=== PATIENT | female | born 1975 | race Caucasian/White ===

== ENCOUNTER 2020-08-02 11:22 | Outpatient (REF) | payer OTHER, SELFPAY | END 2020-08-02 11:23 | disposition home or self-care (01) | LOC: HO.LAB 11:22 | PROVIDERS: Visit Provider Internal Medicine | DX: Z20.828 Contact with and (suspected) exposure to other viral communicable diseases (principal) | CPT/HCPCS: C9803; U0003 ==

== ENCOUNTER → 2021-05-06 11:12 | Outpatient (BNVA) | payer OTHER, SELFPAY | PROVIDERS: PCP Internal Medicine | CPT/HCPCS: 99212 ==

== ENCOUNTER → 2022-12-08 11:36 | Outpatient (BNVA) | payer OTHER, SELFPAY | PROVIDERS: PCP Internal Medicine; Visit Provider Nurse Practitioner Family | DX: N31.9 Neuromuscular dysfunction of bladder, unspecified (principal) | CPT/HCPCS: 99202 ==

== ENCOUNTER 2023-12-10 11:32 | Outpatient (AMB) | payer OTHER, SELFPAY ==
--- NOTE | 2023-12-10 11:39 | A.OFFVIS_ITS ---
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 Required: No Accompanied by: Self / Same As Patient Allergies ciprofloxacin [Cipro] Allergy (Unknown, Verified 12/10/23 12:10) hives penicillin V Allergy (Unknown, Verified 12/10/23 12:10) hives Medication List - Last Reconciled 12/10/23 by RADHA Tomas- amitriptyline 25 mg PO BEDTIME baclofen 20 mg PO TID cholecalciferol (vitamin D3) (Vitamin D3) 50 mcg PO DAILY dalfampridine ER 0 mg PO empagliflozin (Jardiance) 10 mg PO DAILY estradiol 0.01%(0.1mg/gram) vaginally 3 times a week; pea sized amount to urethra 3 times a week 30 days ferrous sulfate (FeroSul) 0 mg PO gabapentin 600 mg PO TID medroxyprogesterone 5 mg PO DAILY metformin 500 mg PO BID metoprolol succinate ER 25 mg PO DAILY nitrofurantoin macrocrystal 100 mg PO DAILY 90 days sennosides-docusate sodium 8.6-50 mg (Stimulant Laxative Plus) 0 tabs PO teriflunomide (Aubagio) 14 mg PO DAILY tramadol 50 mg PO TID PRN HPI HPI Comments History of Present Illness Details Poonam is a pleasant 48-year-old female patient of Dr. Guerrero. She presents to the office today for follow-up of her neurogenic bladder. In discussion with the patient today she reports to be doing and feeling well. She reports since her last office visit here approximately 1 year ago. She has experienced 3-4 urinary tract infections. She discusses feeling this is related to decrease in Macrobid asked she had previously been on 100 mg daily in this was changed to 50 mg daily. She reports having followed up with her neurologist and PCP. She reports her urinary tract infections symptoms typically are experienced with increase in bilateral leg weakness.Patient reports since the age of [age] years old she has been straight cathing due to her neurogenic bladder. She reports straight cathing approximately 6 to 8 times per day. When asked she reports noncompliance with Estrace cream as she was unsure how to use this. This was reviewed and discussed. Discussed calling office with UTI like symptoms so we can further monitor how many she is having to further assess potential for increase in prophylactic measures of recurrent urinary tract infections. She currently denies any bothersome urinary issues or concerns. She reports her last UTI was approximately 3 months ago. Unable to obtain urine for urinalysis PVR 0 mL. She discusses her recent clearance from Cardiology to undergo colonoscopy. She also discusses recently celebrating her 48th birthday with her family and having COVID 4 days later. When asked she reports to be drinking adequate amount of fluid daily. She currently receives her CIC supplies through [facility] [facility]. When asked she denies flank pain, hematuria, foul- smelling urine, fever, and or chills. ON LICENSE OF [facility] Medical History Neurogenic bladder Surgical History Hx of section Family History Father Cancer of unknown origin Mother Esophagus cancer Social History Alcohol intake: never Patient Tobacco Use Status: Never used Tobacco Review of Systems Const Reports as per HPI Eyes Reports no additional complaints ENT Reports no additional complaints Card Reports as per HPI Resp Reports no additional complaints GI Details: Patient reports she follows with GI regarding constipation is currently on Miralax and is due for colonscopy. Reports constipation Reports as per HPI Musc Reports as per HPI Neuro Reports as per HPI Psych Reports no additional complaints Endo Reports no additional complaints Travon/Lymph Reports no additional complaints Aller/Immun Reports no additional complaints Physical Exam Const General: cooperative, healthy appearing, comfortable, no acute distress, well developed, alert and awake Orientation/consciousness: patient oriented x3 Limitations: ambulation with walker HEENT Head: Yes normal to inspection, Yes normocephalic and Yes atraumatic Ears: hearing grossly normal bilaterally Eyes General: appearance normal, both eyes and all related structures Neck Neck: Yes normal visual inspection and Yes trachea midline Chest Chest palpation & inspection: normal inspection of the chest Resp Effort & Inspection: normal respiratory effort and able to speak in complete sentences Cardio Rate: regular rate GI Inspection: Yes normal to inspection General: Yes no CVA tenderness Back/Spine/Pelvis Back: no CVA tenderness Skin General skin exam: no rashes or lesions noted Neuro General: patient oriented x3 Extrem General: Yes normal to inspection Psych Appearance: grossly normal and well kempt Mental Status: mental status grossly normal Speech and movement: Normal speech and movement present and Clear speech present Affect: normal affect Attitude: cooperative Thought process: Normal thought process present Thought content: Normal thought content present Insight: Good insight present (Psych) Judgement: Good judgement present (Psych) Assessment & Plan Assessment & Plan (1) Neurogenic bladder: Code(s): N31.9 - Neuromuscular dysfunction of bladder, unspecified (2) Recurrent urinary tract infection: Code(s): N39.0 - Urinary tract infection, site not specified Plan Unable to obtain urine for urinalysis however PVR 0 mL. Will obtain retroperitoneal ultrasound for further assessment evaluation. New prescription provided for 100 mg of Macrobid daily. Discussed and educated on use of Estrace cream. Discussed calling office with UTI like symptoms tract in monitor. Discussed possible near future in office cystoscopy for further assessment evaluation. She currently denies any bothersome urinary issues or concerns. Follow-up in 3 months with imaging to be completed prior; or sooner with any issues, concerns, and or questions. Orders: Orders US retroperitoneal comp Today N31.9 - Neuromuscular dysfunction of bladder, unspecified, N39.0 - Urinary tract infection, site not specified Medications: New nitrofurantoin macrocrystal Daily for prophylaxis 100 mg PO DAILY 90 caps 1RF 90 days N39.0 - Urinary tract infection, site not specified Discontinued nitrofurantoin macrocrystal must administer with a meal/food Discontinued Reason: Doctor's Order 50 mg PO BEDTIME 90 caps 3RF 90 days N39.0 - Urinary tract infection, site not specified Patient Instructions: The patient had an opportunity to ask questions regarding the treatment plan. All questions were answered. Physical exam, labs, and imaging were discussed and reviewed in detail. As well as risks, benefits, and discussion of treatment choices. No major barriers to understanding were identified. The patient expressed understanding and agreement with the above treatment plan. The patient was made aware they should contact our office by phone for worsening of their current condition, the appearance of new symptoms, or with any questions or concerns. Compliance is encouraged with any medications and follow up testing that is ordered. It is a privilege to be allowed the opportunity to participate in? your urological care.? Again, if you have any questions or concerns If you have any questions or concerns please do not hesitate to contact me. The office is [phone]. This note is constructed using voice recognition software. While every effort has been made to ensure accuracy frame nailer errors may have been included. Yours sincerely, MEGAN Tomas Coding Level of Care Code Est Pt Level 3 (42057) Diagnoses Neurogenic bladder N31.9 Recurrent urinary tract infection N39.0
== END 2023-12-10 12:15 | disposition home or self-care (01) ==
PROVIDERS: Visit Provider Nurse Practitioner Family
DX: N31.9 Neuromuscular dysfunction of bladder, unspecified (principal); N39.0 Urinary tract infection, site not specified
CPT/HCPCS: 99213

== ENCOUNTER → 2023-12-10 11:32 | Outpatient (BNVA) | payer OTHER, SELFPAY | PROVIDERS: Visit Provider Nurse Practitioner Family | DX: N31.9 Neuromuscular dysfunction of bladder, unspecified (principal); N39.0 Urinary tract infection, site not specified | CPT/HCPCS: 99212 ==

== ENCOUNTER 2024-03-04 11:33 | Outpatient (REF) | payer OTHER, SELFPAY ==
--- NOTE | ~2024-03-04 | US_ITS ---
EXAMINATION: US RETROPERITONEAL COMPLETE (RENAL) CLINICAL INFORMATION: Neuromuscular dysfunction of bladder, unspecified. COMPARISON: Renal ultrasound 03/19/2015. TECHNIQUE: Real-time imaging of the kidneys and bladder. FINDINGS: RIGHT KIDNEY: 14.4 x 4.5 x 7.2 cm (SAG x AP x TRV). The kidney is normal in size, contour, and echogenicity. Renal cortical thickness is normal. No calculi or focal parenchymal lesions. No hydronephrosis. LEFT KIDNEY: 13.5 x 4.8 x 7.0 cm (SAG x AP x TRV). The kidney is normal in size, contour, and echogenicity. Renal cortical thickness is normal. No calculi or focal parenchymal lesions. No hydronephrosis. BLADDER: Well distended and normal. Bilateral ureteral jets are demonstrated. Prevoid bladder volume is 288 mL. There is no postvoid residual. The patient self catheterized. A small amount of dependent debris is seen within the bladder. US/US retroperitoneal comp IMPRESSION: 1. Normal appearance of the kidneys. 2. No post void residual. The patient self catheterized. 3. Small amount of dependent debris within the bladder.
== END 2024-03-04 11:34 | disposition home or self-care (01) ==
LOC: HO.HMGCX 11:33
PROVIDERS: PCP Internal Medicine; Visit Provider Nurse Practitioner Family
DX: N31.9 Neuromuscular dysfunction of bladder, unspecified (principal); N39.0 Urinary tract infection, site not specified
CPT/HCPCS: 76770

== ENCOUNTER 2024-06-24 12:03 | Outpatient (AMB) | payer OTHER, SELFPAY ==
--- NOTE | 2024-06-24 12:07 | A.OFFVIS_ITS ---
Intake Visit Reasons: 3m/U/S(set) Intake Note: Patient presents today for follow up on: neurogenic bladder Urology Medications: nitrofurantoin Blood Thinner: none Granular Operator Required: No Accompanied by: Self / Same As Patient Allergies ciprofloxacin [Cipro] Allergy (Unknown, Verified 06/24/24 12:16) hives penicillin V Allergy (Unknown, Verified 06/24/24 12:16) hives Medication List - Last Reconciled 06/24/24 by RADHA Tomas- amitriptyline 50 mg PO BEDTIME aspirin 81 mg PO DAILY baclofen 20 mg PO TID cholecalciferol (vitamin D3) (Vitamin D3) 50 mcg PO DAILY dalfampridine ER 0 mg PO empagliflozin (Jardiance) 10 mg PO DAILY estradiol 0.01%(0.1mg/gram) vaginally 3 times a week; pea sized amount to urethra 3 times a week 30 days ferrous sulfate (FeroSul) 0 mg PO gabapentin 600 mg PO TID medroxyprogesterone 5 mg PO DAILY metoprolol tartrate 25 mg PO BID nitrofurantoin macrocrystal 100 mg PO DAILY 90 days potassium chloride ER mEq PO rosuvastatin 40 mg PO DAILY semaglutide (Ozempic) mg subcut sennosides-docusate sodium 8.6-50 mg (Stimulant Laxative Plus) 0 tabs PO spironolactone 25 mg PO DAILY HPI Comments Details: Poonam is a pleasant 48-year-old female patient of Dr. Guerrero. She is being followed up on today via video telehealth for her neurogenic bladder.. Of note, patient was seen approximately 6 months ago at which time a retroperitoneal ultrasound was ordered for further assessment evaluation. These results reviewed with the patient today. Bilateral kidneys no calculi, lesions, and or hydronephrosis. The bladder is well distended and normal. Bladder ureteral jets are demonstrated. Pre void bladder volume is approximately 300 mL. There was no postvoid residual as patient has self catheterized. In discussion with the patient today she reports since her last office visit here approximately 6 months ago she has had no bothersome urinary i ssues or concerns. She continues to catheterize herself 6-8 times per day. She reports compliance with Macrobid for suppression. She reports previously decreasing dose of Macrobid to 50 mg daily however started experiencing UTI like symptoms therefore she continues with 100 mg of Macrobid daily. When asked she reports to be drinking adequate amount of fluid daily. She currently receives her CIC supplies through [facility]. When asked she denies flank pain, hematuria, foul-smelling urine, fever, and or chills. PFSH Medical History Neurogenic bladder Surgical History Hx of section Family History Father Cancer of unknown origin Mother Esophagus cancer Social History Alcohol intake: never Patient Tobacco Use Status: Never used Tobacco Review of Systems Const Reports as per HPI Eyes Reports no additional complaints ENT Reports no additional complaints Card Reports as per HPI Resp Reports no additional complaints GI Details: Patient reports she follows with GI regarding constipation is currently on Miralax and is due for colonscopy. Reports constipation Reports as per HPI Musc Reports as per HPI Neuro Reports as per HPI Psych Reports no additional complaints Endo Reports no additional complaints Travon/Lymph Reports no additional complaints Aller/Immun Reports no additional complaints Physical Exam Const General: cooperative, healthy appearing, comfortable, no acute distress, well developed, alert and awake Orientation/consciousness: patient oriented x3 Resp Effort & Inspection: normal respiratory effort and able to speak in complete sentences Neuro General: patient oriented x3 Psych Appearance: grossly normal and well kempt Mental Status: mental status grossly normal Speech and movement: Clear speech present Affect: normal affect Attitude: cooperative Thought process: Normal thought process present Thought content: Normal thought content present Insight: Fair insight present (Psych) Judgement: Fair judgement present (Psych) Telehealth Telehealth Telehealth Platform: [facility] Location of provider rendering services: practice address Location of patient: address on file Patient Identification confirmed using: Name, : Yes Telehealth method: video Patient verbally consented to treatment: Yes Patient verbally consented to billing insurance company: Yes Patient informed of any privacy concerns related to visit: Yes Minutes spent on Phone/Video with Pt.: 15 Results Reviewed Results Reviewed: Date of Service: 03/04/24 EXAMINATION: US RETROPERITONEAL COMPLETE (RENAL) FINDINGS: RIGHT KIDNEY: 14.4 x 4.5 x 7.2 cm (SAG x AP x TRV). The kidney is normal in size, contour, and echogenicity. Renal cortical thickness is normal. No calculi or focal parenchymal lesions. No hydronephrosis. LEFT KIDNEY: 13.5 x 4.8 x 7.0 cm (SAG x AP x TRV). The kidney is normal in size, contour, and echogenicity. Renal cortical thickness is normal. No calculi or focal parenchymal lesions. No hydronephrosis. BLADDER: Well distended and normal. Bilateral ureteral jets are demonstrated. Prevoid bladder volume is 288 mL. There is no postvoid residual. The patient self catheterized. A small amount of dependent debris is seen within the bladder. IMPRESSION: 1. Normal appearance of the kidneys. 2. No post void residual. The patient self catheterized. 3. Small amount of dependent debris within the bladder. Assessment & Plan Assessment & Plan (1) Recurrent urinary tract infection: Code(s): N39.0 - Urinary tract infection, site not specified Category: Medical (2) Neurogenic bladder: Code(s): N31.9 - Neuromuscular dysfunction of bladder, unspecified Category: Medical Plan Recent retroperitoneal ultrasound results reviewed with the patient today; as noted above. Continue Macrobid for suppression; refill provided. She denies any bothersome urinary issues or concerns. Denies any UTI like symptoms. Continue CIC as discussed. Discussed possible near future in office cystoscopy for further assessment evaluation if symptoms arise Follow-up in 6 months; or sooner with any issues, concerns, and or questions. Medications: Refilled nitrofurantoin macrocrystal Daily for prophylaxis 100 mg PO DAILY 90 days 90 caps 1RF N39.0 - Urinary tract infection, site not specified Patient Instructions: The patient had an opportunity to ask questions regarding the treatment plan. All questions were answered. Physical exam, labs, and imaging were discussed and reviewed in detail. As well as risks, benefits, and discussion of treatment choices. No major barriers to understanding were identified. The patient expressed understanding and agreement with the above treatment plan. The patient was made aware they should contact our office by phone for worsening of their current condition, the appearance of new symptoms, or with any questions or concerns. Compliance is encouraged with any medications and follow up testing that is ordered. It is a privilege to be allowed the opportunity to participate in? your urological care.? Again, if you have any questions or concerns If you have any questions or concerns please do not hesitate to contact me. The office is [phone]. This note is constructed using voice recognition software. While every effort has been made to ensure accuracy aggregate conveyor operator errors may have been included. Yours sincerely, MEGAN Tomas Coding Level of Care Code Tele Est Pt Level 3 (36560) Diagnoses Recurrent urinary tract infection N39.0 Neurogenic bladder N31.9 Time Spent (min) 15
== END 2024-06-24 12:53 | disposition home or self-care (01) ==
LOC: HO.HUSH 12:03
PROVIDERS: PCP Internal Medicine; Visit Provider Nurse Practitioner Family
DX: N39.0 Urinary tract infection, site not specified (principal); N31.9 Neuromuscular dysfunction of bladder, unspecified
CPT/HCPCS: 99213

== ENCOUNTER → 2024-06-24 12:03 | Outpatient (BNVA) | payer OTHER, SELFPAY | PROVIDERS: PCP Internal Medicine; Visit Provider Nurse Practitioner Family ==

== ENCOUNTER 2024-12-23 14:01 | Outpatient (AMB) | payer OTHER, SELFPAY ==
--- NOTE | 2024-12-23 14:01 | A.OFFVIS_ITS ---
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: No Accompanied by: Self / Same As Patient Allergies ciprofloxacin [Cipro] Allergy (Unknown, Verified 12/23/24 14:16) hives penicillin V Allergy (Unknown, Verified 12/23/24 14:16) hives Medication List - Last Reconciled 12/23/24 by RADHA Tomas- amitriptyline 50 mg PO BEDTIME aspirin 81 mg PO DAILY baclofen 20 mg PO TID cholecalciferol (vitamin D3) (Vitamin D3) 50 mcg PO DAILY dalfampridine ER 0 mg PO empagliflozin (Jardiance) 10 mg PO DAILY estradiol 0.01%(0.1mg/gram) vaginally 3 times a week; pea sized amount to urethra 3 times a week 30 days ferrous sulfate (FeroSul) 0 mg PO gabapentin 600 mg PO TID medroxyprogesterone 5 mg PO DAILY metoprolol tartrate 25 mg PO BID nitrofurantoin macrocrystal 100 mg PO DAILY 90 days potassium chloride ER mEq PO rosuvastatin 40 mg PO DAILY semaglutide (Ozempic) mg subcut sennosides-docusate sodium 8.6-50 mg (Stimulant Laxative Plus) 0 tabs PO spironolactone 25 mg PO DAILY HPI Comments Details: Poonam is a pleasant 49-year-old female patient of Dr. Guerrero. She is being followed up on today via video telehealth for her neurogenic bladder. In discussion with the patient today she reports to be doing and feeling well. She reports compliance with Macrobid as prescribed. However, has not been utilizing Estrace cream. We discussed importance of taking medications as prescribed as well as efficacy of medications. She discusses having experienced 1 urinary tract infections since her last office visit here approximately 6 months ago. She reports her health insurance has the capability of sending out medical provider at which time a urine was obtained and noted to have bacterial growth. She reports having completed antibiotic therapy as prescribed by her PCP and has not experienced any UTI like symptoms and or urinary tract infections since this event. She continues to CIC approximately 6-8 times per day. She is enquiring refill prescription of catheter supplies through [facility] on each history in [place]. Previous workup has included a retroperitoneal ultrasound 03/26 noting bilateral kidneys no calculi, lesions, and or hydronephrosis. The bladder is well distended and normal. Bladder ureteral jets are demonstrated. Pre void bladder volume is approximately 300 mL. There was no postvoid residual as patient has self catheterized. She had previously decrease dose of prophylactic Macrobid to 50 mg daily however started experiencing UTI like symptoms therefore dose was readjusted back to 100 mg daily. When asked she reports to be drinking adequate amount of fluid daily. When asked she denies flank pain, hematuria, foul-smelling urine, fever, and or chills. PFS Medical History Neurogenic bladder Surgical History Hx of section Family History Father Cancer of unknown origin Mother Esophagus cancer Social History Alcohol intake: never Patient Tobacco Use Status: Never used Tobacco Review of Systems Const Reports as per HPI Eyes Reports no additional complaints ENT Reports no additional complaints Card Reports as per HPI Resp Reports no additional complaints GI Details: Patient reports she follows with GI regarding constipation is currently on Miralax and is due for colonscopy. Reports constipation Reports as per HPI Musc Reports as per HPI Neuro Reports as per HPI Psych Reports no additional complaints Endo Reports no additional complaints Travon/Lymph Reports no additional complaints Aller/Immun Reports no additional complaints Physical Exam Const General: cooperative Orientation/consciousness: patient oriented x3 Resp Effort & Inspection: able to speak in complete sentences Neuro General: patient oriented x3 Psych Speech and movement: Clear speech present Attitude: cooperative Thought process: Normal thought process present Thought content: Normal thought content present Insight: Fair insight present (Psych) Judgement: Fair judgement present (Psych) Telehealth Telehealth Telehealth Platform: [employer] Location of provider rendering services: practice address Location of patient: address on file Patient Identification confirmed using: Name, : Yes Telehealth method: voice only Patient verbally consented to treatment: Yes Patient verbally consented to billing insurance company: Yes Patient informed of any privacy concerns related to visit: Yes Minutes spent on Phone/Video with Pt.: 15 Assessment & Plan Assessment & Plan (1) Multiple sclerosis: Code(s): G35 - Multiple sclerosis Category: Medical (2) Neurogenic bladder: Code(s): N31.9 - Neuromuscular dysfunction of bladder, unspecified Category: Medical (3) Recurrent urinary tract infection: Code(s): N39.0 - Urinary tract infection, site not specified Category: Medical Plan Patient currently denies any UTI like symptoms. We discussed importance of calling office with any UTI like symptoms for further treatment options. Discussed, educated, and stressed the importance of adequate hydration relation to recurrent urinary tract infections. Continue Macrobid. Restart Estrace cream as discussed and prescribed. We discussed importance of compliance with medications as prescribed. Will recent prescription to [facility] for catheters as patient is performing CIC 6-8 times per day indefinitely. Follow-up in 6 months with PVR; or sooner with any issues, concerns, and or questions. Patient Instructions: The patient had an opportunity to ask questions regarding the treatment plan. All questions were answered. Physical exam, labs, and imaging were discussed and reviewed in detail. As well as risks, benefits, and discussion of treatment choices. No major barriers to understanding were identified. The patient expressed understanding and agreement with the above treatment plan. The patient was made aware they should contact our office by phone for worsening of their current condition, the appearance of new symptoms, or with any questions or concerns. Compliance is encouraged with any medications and follow up testing that is ordered. It is a privilege to be allowed the opportunity to participate in? your urological care.? Again, if you have any questions or concerns If you have any questions or concerns please do not hesitate to contact me. The office is [phone]. This note is constructed using voice recognition software. While every effort has been made to ensure accuracy paper cone machine tender errors may have been included. Yours sincerely, MEGAN Tomas Coding Level of Care Code Tele Est Pt Level 3 (49671) Complex EM visit Add On G2211 Diagnoses Multiple sclerosis G35 Neurogenic bladder N31.9 Recurrent urinary tract infection N39.0
--- OUTSIDE RECORDS SUMMARY | 2024-12-23 16:49 | XMS_ITS | Clinical Summary ---
Author Organization [address] [place] [address] Address [address] [place] [address] Phone Care Team Providers Care Entry Level Staff Accountant Name Role Phone Maggie Guerrero MD Primary Care Provider [phone] Allergies Active Allergy Reactions Criticality Noted Date Comments Ciprofloxacin-Hydrocortisone Itching 015 Penicillins 06/22/2022 Other reaction(s): UNKNOWN Medications aspirin 81 mg EC tablet 02/12/20 22 Active ferrous sulfate 325 mg (65 mg elemental iron) tablet TK 1 T PO BID 03/02/20 20 Active gabapentin (NEURONTIN) 600 mg tablet Take 1 tablet (600 mg total) by mouth 3 (three) times a day. 03/20/20 22 Active insulin aspart (NovoLOG FlexPen U-100 Insulin) 100 unit/mL (3 mL) injection pen 02/14/20 22 Active insulin glargine (Lantus Solostar U-100 Insulin) 100 unit/mL (3 mL) injection pen ADMINISTER 20 UNITS UNDER THE SKIN DAILY AT BEDTIME 02/09/20 22 Active losartan (COZAAR) 25 mg tablet Take 1 tablet (25 mg total) by mouth. 02/12/20 22 Active methocarbamoL (ROBAXIN) 750 mg tablet Take 1 tablet (750 mg total) by mouth. 07/26/20 18 Active metoprolol succinate (TOPROL-XL) 25 mg 24 hr tablet Take 1 tablet (25 mg total) by mouth. 10/21/19 21 Active nitrofurantoin (MACRODANTIN) 100 mg capsule Take 1 capsule (100 mg total) by mouth. 10/23/19 21 Active semaglutide (Ozempic) 0.25 mg or 0.5 mg(2 mg/1.5 mL) injection pen 02/23/20 Active senna-docusate (Stimulant Laxative Plus) 8.6-50 mg per tablet Take 1 tablet by mouth 2 (two) times a day if needed. 03/01/20 Active spironolactone (ALDACTONE) 25 mg tablet Take 1 tablet (25 mg total) by mouth. 05/31/20 Active SUMAtriptan (IMITREX) 50 mg tablet Take 1 tablet (50 mg total) by mouth 2 times daily as needed. 07/20/20 Active coenzyme Q-10 200 mg capsule Take 1 capsule (200 mg total) by mouth 1 (one) time each day. 05/23/20 Active sodium chloride 0.9 % parenteral solution 500 mL with ocrelizumab 30 mg/mL solution 600 mg Infuse 600 mg into a venous catheter every 6 months. Active empagliflozin (Jardiance) 10 mg tablet 0 Refills, Maintenance, 08/14/23 12:10:00 EST, Partial fill upon patient request if the prescription is for a schedule II opioid drug. 08/14/20 Active ergocalciferol (VITAMIN D-2) 1,250 mcg (50,000 unit) capsule Take 1 capsule (50,000 Units total) by mouth once a week. - Oral Active ocrelizumab (OCREVUS IV) Inject 600 mg into the vein every 6 (six) months. - Intravenous Active amitriptyline (ELAVIL) 50 mg tablet TAKE 1 TABLET(50 MG) BY MOUTH AT BEDTIME 30 tablet 3 09/22/19 25 Active cholecalcifero l (VITAMIN D-3) 50 mcg (2,000 unit) tablet Take 1 tablet (2,000 Units total) by mouth 1 (one) time each day. 90 tablet 1 10/08/19 25 Active ibuprofen (ADVIL,MOTRIN) 600 mg tablet TAKE 1 TABLET BY MOUTH EVERY 6 HOURS NEEDED FOR MENSTRUAL PAIN 60 tablet 10/21/19 25 Active medroxyPROGEST ERone (PROVERA) 10 mg tablet Take 2 tablets (20 mg total) by mouth 1 (one) time each day. 60 tablet 10/28/19 25 Active baclofen (LIORESAL) 10 mg tablet TAKE 2 TABLETS BY MOUTH THREE TIMES DAILY 180 tablet 5 11/29/19 25 Active dalfampridine 10 mg tablet extended release 12 hr Take 1 tablet by mouth every 12 (twelve) hours. 60 tablet 3 12/18/19 Active baclofen (LIORESAL) 10 mg tablet Take 2 tablets (20 mg total) by mouth. 08/29/20 20 2024 Discontinued dalfampridine 10 mg tablet extended release 12 hr Take 1 tablet by mouth every 12 (twelve) hours. 07/17/20 22 2024 Discontinued(R eorder) dalfampridine 10 mg tablet extended release 12 hr Take 1 tablet by mouth every 12 (twelve) hours. 60 tablet 3 12/11/19 25 2024 Discontinued(R eorder) dalfampridine 10 mg tablet extended release 12 hr msot 60 tablet 3 12/11/192024 Discontinued(R eorder) Active Problems Problem Noted Date Diagnosed Date Multiple sclerosis ([facility] V24, [facility] V28) DM (diabetes mellitus) ([facility] V24, [facility] V28 ) 05/07/2020 HLD (hyperlipidemia) 05/07/2020 Lumbar spinal stenosis 05/07/2020 Encounters Date Type Department Care Team Description 11/04/2024 9:00 AM EST - 11/04/2024 11:59 PM EST Hospital Encounter [facility] [address] [address] Multiple sclerosis ([facility] V24, [facility] V28) (Primary Dx) Discharge Disposition: Home or Self Care 10/28/2024 Telephone [facility] [address] [facility] [place] [phone] Lyubov Amador CNM Vaginal Bleeding 10/15/2024 Telephone [facility] [address] [phone] Mahamed Gomes RN Multiple Sclerosis from Last 3 Months Immunizations Name Administration Dates Next Due [employer] (ages 12 & older) JACKIE S-CoV-2 COVID-19, mRNA, LNP-S, regina-sucrose, preservative free 11/04/2021 Pfizer SARS-CoV-2 COVID-19, mRNA, LNP-S, preservative free 10/07/2021 Surgical History Surgery Date Site/Laterality Comments OTHER SURGICAL HISTORY PROCEDURE:pinch nerve in neck CARPAL TUNNEL RELEASE 11/23/2020 PROCEDURE:CARPAL TUNNEL RELEASE CAROTID STENT PROCEDURE:CAROTID STENT Medical History Medical History Date Comments Migraine DX:Migraine Multiple sclerosis (CMS/HCC V24, CMS/[facility] V28) 01/15/2012 DX:Multiple sclerosis (HCC) Hypertension DX:Hypertension Arthritis 2019 DX:Arthritis;COM MENT:Right Hip Heart attack (CMS/HCC V24, CMS/HCC V28) DX:Heart attack (HCC) Diabetes mellitus (CMS/HCC V 24, [facility] V28) DX:Diabetes mellitus (HCC) Family History Medical History Relation Name Comments Cancer Maternal Grandfather Cancer Mother Multiple sclerosis Neg Hx Relation Name Status Comments Maternal Grandfather Mother Social History Tobacco Use Types Packs/Day Years Used Date Smoking Tobacco: Never Smokeless Tobacco: Never Tobacco Cessation:Counseling Given: Not Answered Alcohol Use Standard Drinks/Week Comments No 0 (1 standard drink = 0.6 oz pur e alcohol) Comments Unknown Sex and Gender Information Value Date Recorded Sex Assigned at Not on file Legal Sex Female 6:52 PM EST Gender Identity Not on file Sexual Orientation Not on file Obstetrics History Para Term AB IAB SAB Ectopic Multiple Livin g Live Births 10 5 5 0 0 0 0 0 0 5 5 Date Outcome GA Total Labor Labor/2nd/3rd Weight Sex Type Anes PTL Lashae A1 A5 Name Clin CS-LT ranv Term Vag-S pont Living Term Vag-S pont Living Term CS-Un spec Living Term CS-Un spec Living Term CS-Un spec Living 1991 1993 CS-LV ertic al 1998 CS-LT ranv 2007 Last Filed Vital Signs Vital Sign Reading Time Taken Comments Blood Pressure 105/70 11/04/2024 12:20 PM EST Pulse 83 11/04/2024 12:20 PM EST Temperature 36.4 ??C (97.5 ??F) 11/04/2024 12:[address] Respiratory Rate 20 11/04/2024 12:20 PM EST Oxygen Saturation 96% 11/04/2024 12:20 PM EST Inhaled Oxygen Concentration - - Weight 86.8 kg (191 lb 6.4 oz) 09/15/2024 9:51 A M EST Height 154.9 cm (5' 1 ) 09/15/2024 9:51 AM EST Body Mass Index 36.16 09/15/2024 9:51 AM EST Plan of Treatment Upcoming Encounters Date Type Department Care Team (Late st Contact Info) Description 12/30/2024 10:30 AM EDT Office Visit [facility] [address] [facility] [address] [place] [phone] Tasia Ruvalcaba PA 175 [facility] [address] [place] [phone] 02/04/2025 11:15 AM EDT Office Visit Obstetrics and Gynecology - [facility] [address] [place] [phone] Lyubov Amador CNM [address] [place] [address] 05/06/2025 10:00 AM EDT Appointment [facility] [place] [address] [phone] Health Maintenance Due Date Last Done Comments Diabetes: Annual Foot Exam 11/14/1983 Diabetes: Annual Retina Eye Exam 11/14/1983 Hepatitis B Vaccines (1 of 3 - 19+ 3-dose series) 1992 Pneumococcal Vaccine: 50+ Years (1 of 2 - PCV) 1992 Pneumococcal Vaccine: Pediatrics (0 to 5 Years) and At-Risk Patients (6 to 64 Years) (1 of 2 - PCV) 1992 Colorectal Cancer Screening: Colonoscopy 08/10/2022 Depression Screening 08/10/2022 HIV Screening 08/10/2022 Hepatitis C Screening 08/10/2022 Social Influencers of Health Screening 08/10/2022 Zoster Vaccines (1 of 2) 11/14/2023 COVID-19 Vaccine ( season) 2024 11/04/2021, 10/07/2021 Cervical Cancer Screening: Pap Smear 05/04/2024 05/04/2021 Diabetes: Blood Sugar Control Test (HGBA1C) 02/13/2025 08/15/2024, 04/05/2024 Influenza Vaccine (Season Ended) 2025 06/05/2022, 05/05/2021, 07/03/2020, Additional history exists Diabetes: Annual Urine Albumin-Creatinine Ratio (uACR) 08/15/2025 08/15/2024, 10/04/2023, 10/04/2023 Breast Cancer Screening 10/25/2025 10/25/19 24, 06/29/2022, 10/11/2020, Additional history exists Diabetes: Annual GFR (Glomerular Filtration Rate) 11/04/2025 11/04/2024 Hypertension/CHF/CAD Annual BMP Blood Test 11/04/2025 11/04/2024 Cholesterol Screening (Lipid Panel) 08/15/2029 08/15/2024, 04/05/2024 DTaP,Tdap,and Td Vaccines (2 - Td or Tdap) 05/18/2033 05/18/2023 HIB Vaccines Aged Out No longer eligi ble based on patient's age to complete this topic HPV Vaccines Aged Out No longer eligi ble based on patient's age to complete this topic Hepatitis A Vaccines Aged Out No long er eligible based on patient's age to complete this topic IPV Vaccines Aged Out No longer eligi ble based on patient's age to complete this topic MMR Vaccines Aged Out No longer eligi ble based on patient's age to complete this topic Meningococcal ACWY Vaccine Aged Out N o longer eligible based on patient's age to complete this topic Meningococcal B Vaccine Aged Out No l onger eligible based on patient's age to complete this topic RSV Immunization Patients Under 20 months Aged Out No longer eligible based on patient's age to complete this topic Varicella Vaccines Aged Out No longer eligible based on patient's age to complete this topic Procedures Procedure Name Priority Date/Time Associated Diagnosis Comments CBC WITH AUTO DIFFERENTIAL Routine 11/04/2024 9:42 AM EST Multiple sclerosis (CMS/HCC V24, CMS/HCC V28) CBC AND DIFFERENTIAL Routine 11/04/2024 9:42 AM EST Multiple sclerosis (CMS/HCC V24, CMS/HCC V28) HEPATIC FUNCTION PANEL Routine 11/04/2024 9:42 AM EST CREATININE, SERUM Routine 11/04/2024 9:4 2 AM EST BUN Routine 11/04/2024 9:42 AM EST HEMOGLOBIN A1C Routine 04/05/2024 LIPID PANEL Routine 04/05/2024 SCREENING MAMMOGRAPHY BI 2-VIEW BREAST INC CAD Routine 10/25/2023 11:43 AM EST Encounter for other screening for malignant neoplasm of breast HM URINE ALBUMIN CREATININE RATIO Routine 10/04/2023 PAP SMEAR Routine 05/04/2021 from Last 3 Months or Most Recently Relevant to Health Maintenance Results * (ABNORMAL) CBC auto differential (11/04/2024 9:42 AM EST) WBC 4.6(L) 4.8 - 10.8 K/mcL LAB HEMETOLOGY METHOD 11/04/2024 10:11 AM [facility] RBC 4.10 3.80 - 4.80 M/mcL LAB HEMETOLOGY METHOD 11/04/2024 10:11 AM [facility] Hemoglobin 13.1 11.5 - 16.0 g/dL LAB HEMETOLOGY METHOD 11/04/2024 10:11 AM [facility] Hematocrit 39.2 35.0 - 47.0 % LAB HEMETOLOGY METHOD 11/04/2024 10:11 AM [facility] MCV 94.7 79.0 - 98.0 FL LAB HEMETOLOGY METHOD 11/04/2024 10:11 AM [facility] MCH 31.6 27.0 - 32.0 pcg LAB HEMETOLOGY METHOD 11/04/2024 10:11 AM [facility] MCHC 33.4 32.0 - 37.0 g/dL LAB HEMETOLOGY METHOD 11/04/2024 10:11 AM [facility] RDW 13.4 11.0 - 15.0 % LAB HEMETOLOGY METHOD 11/04/2024 10:11 AM [facility] Platelets 172 130 - 400 K/mcL LAB HEMETOLOGY METHOD 11/04/2024 10:11 AM [facility] MPV 10.5 7.0 - 11.0 FL LAB HEMETOLOGY METHOD 11/04/2024 10:11 AM [facility] NRBC 0.0 <1.0 % LAB HEMETOLOGY METHOD 11/04/2024 10:11 AM [facility] NRBC Absolute 0.00 <0.10 K/mcL LAB HEMETOLOGY METHOD 11/04/2024 10:11 AM [facility] Neutrophils Relative 64.3 % LAB HEMETOLOGY METHOD 11/04/2024 10:11 AM [facility] Lymphocytes Relative 20.0 % LAB HEMETOLOGY METHOD 11/04/2024 10:11 AM [facility] Monocytes Relative 11.0 % LAB HEMETOLOGY METHOD 11/04/2024 10:11 AM [facility] Eosinophils Relative 3.7 % LAB HEMETOLOGY METHOD 11/04/2024 10:11 AM [facility] Basophils Relative 0.6 % LAB HEMETOLOGY METHOD 11/04/2024 10:11 AM [facility] Immature Granulocytes Relative 0.4 % LAB HEMETOLOGY METHOD 11/04/2024 10:11 AM [facility] Neutrophils Absolute 2.98 1.50 - 7.00 K/mcL LAB HEMETOLOGY METHOD 11/04/2024 10:11 AM [facility] Lymphocytes Absolute 0.93(L) 1.00 - 5.00 K/mcL LAB HEMETOLOGY METHOD 11/04/2024 10:11 AM EST [facility] Monocytes Absolute 0.51 0.20 - 1.00 K/[facility] LAB HEMETOLOGY METHOD 11/04/2024 10:11 AM EST [facility] Eosinophils Absolute 0.17 0.00 - 0.50 K/[facility] LAB HEMETOLOGY METHOD 11/04/2024 10:11 AM EST [facility] Basophils Absolute 0.03 0.00 - 0.20 K/[facility] LAB HEMETOLOGY METHOD 11/04/2024 10:11 AM EST [facility] Immature Granulocytes Absolute 0.02 0.00 - 0.03 K/[facility] LAB HEMETOLOGY METHOD 11/04/2024 10:11 AM EST [facility] Blood Venous blood specimen / Unknown Venipuncture / Unknown 11/04/2024 9:42 AM EST 11/04/2024 9:42 AM EST Tasia BAUTISTA LAB BLOOD ORDERABLES Final R esult [facility] [address] [place] [address], * Creatinine (11/04/2024 9:42 AM EST) Creatinine 0.62 0.50 - 1.10 mg/dL LAB CHEMISTRY METHOD 11/04/2024 10:40 AM EST [facility] eGFR 109 >=60 mL/min/1. 73m2 LAB CHEMISTRY METHOD 11/04/2024 10:40 AM EST [facility] Comment:Calculation based on the??Chronic Kidney Disease Epidemiology Collaboration (CKD-EPI) equation refit??without adjustment for race. Blood Venous blood specimen / Unknown Venipuncture / Unknown 11/04/2024 9:42 AM EST 11/04/2024 9:42 AM EST us Tasia L Panasci PA LAB BLOOD ORDERABLES Final R esult Performing Organization Address City/[facility]/ZIP Co de Phone Number [facility] [address] [place] [address], [place] [phone] * BUN (11/04/2024 9:42 AM EST) [facility] BUN 13 5 - 25 mg/dL LAB CHEMISTRY METHOD 11/04/2024 10:26 AM [facility] Blood Venous blood specimen / Unknown Venipuncture / Unknown 11/04/2024 9:42 AM EST 11/04/2024 9:42 AM EST [facility] LAB BLOOD ORDERABLES Final R esult Performing Organization Address [facility]/ZIP Co de Phone Number [facility] [address] [place] [address], [place] [phone] * (ABNORMAL) Hepatic function panel (11/04/2024 9:42 AM EST) [facility] Total Protein 6.7 6.0 - 8.0 g/dL LAB CHEMISTRY METHOD 11/04/2024 10:40 AM [facility] Albumin 3.5 3.2 - 5.0 g/dL LAB CHEMISTRY METHOD 11/04/2024 10:40 AM [facility] Total Bilirubin 0.4 0.0 - 1.4 mg/dL LAB CHEMISTRY METHOD 11/04/2024 10:40 AM [facility] Bilirubin, Direct <0.1 0.0 - 0.3 mg/dL LAB CHEMISTRY METHOD 11/04/2024 10:40 AM [facility] Comment:Hemolysis present Bilirubin, Indirect LAB CHEMISTRY METHOD 11/04/2024 10:40 AM [facility] Comment:Unable to calculate Indirect Bilirubin. ALT (SGPT) 37 10 - 60 unit/L LAB CHEMISTRY METHOD 11/04/2024 10:40 AM EST [facility] AST (SGOT) 51(H) 10 - 42 unit/L LAB CHEMISTRY METHOD 11/04/2024 10:40 AM EST [facility] Comment:Hemolysis present Alkaline Phosphatase 84 42 - 121 unit/L LAB CHEMISTRY METHOD 11/04/2024 10:40 AM EST [facility] Blood Venous blood specimen / Unknown Venipuncture / Unknown 11/04/2024 9:42 AM EST 11/04/2024 9:42 AM EST Tasia BAUTISTA LAB BLOOD ORDERABLES Final R esult [facility] [address] [place] [address], * Hemoglobin A1c (04/05/2024) Hemoglobin A1C 0.0 % Comment:no interpretation, a bstracted Blood Venous blood specimen / Unknown Historical Provider LAB BLOOD ORDERABLES Chaya l Result * Lipid panel (04/05/2024) Triglycerides 0 mg/dL Comment:no interpretation, a bstracted Cholesterol 0 mg/dL Comment:no interpretation, a bstracted HDL 0 mg/dL Comment:no interpretation, a bstracted LDL Cholesterol 0 mg/dL Comment:no interpretation, a bstracted Blood Venous blood specimen / Unknown Historical Provider MD LAB BLOOD ORDERABLES Chaya l Result * SCREENING MAMMOGRAPHY BI 2-VIEW BREAST INC CAD (10/25/2023 11:43 AM EST) Anatomical Region Laterality Modality Radiographic Carli ging 09/07/2023 11:5 2 AM EST Narrative 10/25/2023 6:59 PM EST This is a summary report. The complete report is available in the patient's medical record. If you cannot access the medical record, please contact the sending organization for a detailed fax or copy. BILATERAL 3D DIGITAL SCREENING MAMMOGRAM History: Routine screening. ??No current breast complaints. ?? Comparison: Multiple priors dating back to 10/02/2019 Technique: Bilateral full-field digital 3D mammography was performed using standard CC and MLO projections, right breast exaggerated CC CAD was used to evaluate this mammogram. Findings: Density: ??There are scattered areas of fibroglandular density-B RIGHT: No suspicious masses, groups of microcalcification or areas of architectural distortion identified. Stable typically benign parenchymal asymmetries. ??Stable right breast upper outer focal asymmetries. ??Scattered typically benign calcifications. LEFT: No suspicious masses, groups of microcalcifications or areas of architectural distortion identified. Stable typically benign parenchymal asymmetries IMPRESSION: : 1. ??No mammographic evidence of malignancy. BI-RADS Category 2 benign findings Recommendation: Routine annual screening mammography is recommended Procedure Note Chi Crowell MD - 04/21/2024 This is a summary report. The complete report is available in thepatient's medical record. If you cannot access the medical record, pleasecontact the sending organization for a detailed fax or copy. BILATERAL 3D DIGITAL SCREENING MAMMOGRAM History: Routine screening. No current breast complaints. Comparison: Multiple priors dating back to 10/02/2019 Technique: Bilateral full-field digital 3D mammography was performed usingstandard CC and MLO projections, right breast exaggerated CC CAD was used to evaluate this mammogram. Findings: Density: There are scattered areas of fibroglandular density-B RIGHT: No suspicious masses, groups of microcalcification or areas ofarchitectural distortion identified. Stable typically benign parenchymalasymmetries. Stable right breast upper outer focal asymmetries.Scattered typically benign calcifications. LEFT: No suspicious masses, groups of microcalcifications or areas ofarchitectural distortion identified. Stable typically benign parenchymalasymmetries IMPRESSION: : 1. No mammographic evidence of malignancy. BI-RADS Category 2 benign findings Recommendation: Routine annual screening mammography is recommended us Maggie Guerrero MD IMG XR PROCEDURES Final Result * HM Urine Albumin Creatinine Ratio (10/04/2023) Urine Albumin Creatinine Ratio abstracted us Historical Provider HEALTH MAINTENANCE Final Result * Pap smear (05/04/2021) 05/04/2021 Narrative HISTORICAL TESTING LAB RESULTING AGENCY - 05/13/2021 7:41 AM EDT [id number] THINPREP PAP, IMAGED: NEGATIVE FOR SQUAMOUS INTRAEPITHELIAL LESION AND MALIGNANCY . SHIFT IN BREEZY SUGGESTIVE OF BACTERIAL VAGINOSIS. SHAHZAD FATIMA(ASCP) (CASE ELECTRONICALLY SIGNED 05 12 2021) RESULT OF APTIMA HIGH RISK HPV ASSAY: HIGH RISK HPV: ??NEGATIVE (SEROTYPES 16,18,31,33,35,39,45,51,52,56,58,59,66,68) COMPLETED ON 2021-05-06 ADEQUACY: SATISFACTORY ENDOCERVICAL/TRANSFORMATION ZONE COMPONENT PRESENT. SOURCE: THINPREP PAP HPV ANY DX: ??REFLEX 16 AND 18, CERVICAL, IMAGED CLINICAL INFORMATION: HPV ANY DIAGNOSIS. HORMONES, PAP HX NEG, NO LMP RECORDED, IRREGULAR MENSES [Z12.4] Mona Pitts DO LAB CYTOLOGY ORDERABLES Final Result HISTORICAL TESTING LAB RESULTING AGENCY from Last 3 Months or Most Recently Relevant to Health Maintenance Insurance [facility] MEDICAID Care Teams Entry Level Staff Accountant Relationship Specialty Start Date End Date Maggie Guerrero MD [address] [place] [address] PCP - General 12/11/07
--- OUTSIDE RECORDS SUMMARY | 2024-12-23 16:49 | XMS_ITS ---
Author Name [facility] Organization Unknown History of Medication Use Medication Directions Dispensed Refills Start Date End Date Status diphenhydrAMINE (BENADRYL) injection 50 mg 50 mg, Intravenous, Once, On [place] 04/10/24 at 0915, For 1 doseGive 30 minutes prior to ocrelizumab. IV push over 2-3 minutes.??See PO diphenhydramine order. Please give PO or IV.??Common Side Effects: Drowsiness, stomach upset, confusion, dry mouth.??Administer undiluted. Maximum rate 25 mg/min. 4 04/10/20 24 completed amitriptyline (ELAVIL) tablet 50 mg TAKE 1 TABLET(50 MG) BY MOUTH EVERY NIGHT AT BEDTIME 4 active dalfampridine ER (AMPYRA) 10 MG 12 hr tablet TAKE 1 TABLET EVERY 12 HOURS 4 active gabapentin (NEURONTIN) 600 MG tablet TAKE 1 TABLET(600 MG) BY MOUTH THREE TIMES DAILY 3 active Ozempic, 0.25 or 0.5 MG/DOSE, 2 MG/1.5ML SOPN 2 active Coenzyme Q10 (Co Q-10) 200 MG CAPS Take 1 capsule by mouth daily. 1 active nitrofurantoin (MACRODANTIN) 100 MG capsule TK 1 C PO QPM 0 active Ocrelizumab (OCREVUS IV) Inject 600 mg into the vein every 6 (six) months. active Problems Problem Status Onset Date Problem Type Date of Resoluti on Source Lumbar spinal stenosis active 2020-05-07 ProblemAct [facility] HLD (hyperlipidemia) active 2020-05-07 ProblemAct [facility] DM (diabetes mellitus) active 2020-05-07 ProblemAct [facility] Multiple sclerosis active 2021-12-02 ProblemAct [facility]
--- OUTSIDE RECORDS SUMMARY | 2024-12-23 16:49 | XMS_ITS | Clinical Summary ---
Author Organization [facility] Address [address] [place] [address] Care Team Providers Care Hog Dropper Name Role Phone Maggie Guerrero MD Primary Care Provider [phone] Allergies Active Allergy Reactions Criticality Noted Date Comments Ciprofloxacin-Hydrocortisone Itching 015 Penicillins 12/19/2013 Medications Medication Sig Dispensed Refills Start Date End Date Status FEROSUL 325 (65 Fe) MG tablet TK 1 T PO BID 0 03/02/2020 Active loratadine (CLARITIN) 10 MG tablet loratadine 10 mg tablet 0 Active nitrofurantoin (MACRODANTIN) 100 MG capsule TK 1 C PO QPM 0 03/29/2020 Active SENEXON-S 8.6-50 MG TK 1 T PO BID PRN 0 03/01/2020 Active Coenzyme Q10 (Co Q-10) 200 MG CAPS Take 1 capsule by mouth daily. 0 05/23/2021 Active Ocrelizumab (OCREVUS IV) Inject 600 mg into the vein every 6 (six) months. 0 Active Brilinta 90 MG TABS tablet Take 1 tablet (90 mg total) by mouth 2 (two) times a day. 0 02/11/2022 Active Ozempic, 0.25 or 0.5 MG/DOSE, 2 MG/1.5ML SOPN 0 02/22/2022 Active metoprolol tartrate (LOPRESSOR) 50 MG tablet Take 1 tablet (50 mg total) by mouth 2 (two) times a day. 0 02/11/2022 Active metFORMIN (GLUCOPHAGE) tablet 1000 mg 0 02/08/2022 Active Aspirin Low Dose 81 MG EC tablet 0 02/11/2022 Active gabapentin (NEURONTIN) 600 MG tablet TAKE 1 TABLET(600 MG) BY MOUTH THREE TIMES DAILY 90 tablet 5 06/01/2023 Active empagliflozin (Jardiance) 10 MG tablet 0 Refills, Maintenance, 08/14/23 12:10:00 EST, Partial fill upon patient request if the prescription is for a schedule II opioid drug. 0 08/14/2023 Active baclofen (LIORESAL) 10 MG tablet Take 2 tablets (20 mg total) by mouth 3 (three) times a day. 180 tablet 5 12/19/2023 Active Cholecalciferol (Vitamin D3) 50 MCG (2000 UT) TABS Take 1 tablet by mouth daily. 30 tablet 5 03/11/2024 Active ergocalciferol (VITAMIN D2) capsule 54245 units Take 1 capsule (50,000 Units total) by mouth once a week. 12 capsule 0 04/14/2024 Active amitriptyline (ELAVIL) tablet 50 mg TAKE 1 TABLET(50 MG) BY MOUTH EVERY NIGHT AT BEDTIME 30 tablet 1 04/28/2024 Active dalfampridine ER (AMPYRA) 10 MG 12 hr tablet TAKE 1 TABLET EVERY 12 HOURS 60 tablet 5 05/26/2024 Active Active Problems Problem Noted Date Diagnosed Date Multiple sclerosis 12/02/2021 HLD (hyperlipidemia) 05/07/2020 DM (diabetes mellitus) 05/07/2020 Lumbar spinal stenosis 05/07/2020 Family History Medical History Relation Name Comments Cancer Maternal Grandfather Cancer Mother Multiple sclerosis Neg Hx Relation Name Status Comments Maternal Grandfather Mother Social History Tobacco Use Types Packs/Day Years Used Date Smoking Tobacco: Never Smokeless Tobacco: Never Tobacco Cessation:Counseling Given: Not Answered Alcohol Use Standard Drinks/Week Comments No 0 (1 standard drink = 0.6 oz pur e alcohol) Sex and Gender Information Value Date Recorded Sex Assigned at Female 07/22/2021 11:15 AM EST Gender Identity Not on file Sexual Orientation Not on file Job Start Date Occupation Industry Not on file Not on file Not on file Last Filed Vital Signs Vital Sign Reading Time Taken Comments Blood Pressure 116/78 04/10/2024 11:23 AM EDT Pulse 79 04/10/2024 11:23 AM EDT Temperature 35.9 ??C (96.7 ??F) 04/10/2024 11:23 AM E DT Respiratory Rate 18 04/10/2024 11:23 AM EDT Oxygen Saturation 96% 04/10/2024 11:23 AM EDT Inhaled Oxygen Concentration - - Weight 85.3 kg (188 lb) 11/27/2023 12:07 PM EDT Height 154.9 cm (5' 1 ) 11/27/2023 12:07 PM EDT Body Mass Index 35.52 11/27/2023 12:07 PM EDT Plan of Treatment Health Maintenance Due Date Last Done Comments Hepatitis B Vaccines (1 of 3 - 3-dose series) 1973 Hepatitis C Screening 1973 Pneumococcal Vaccine (1 of 2 - PCV) 11/14/1979 Depression Screening 1985 BMI Counseling 11/14/1991 Preventative Health Evaluation 11/14/1991 DTap / Tdap / Td (1 - Tdap) 1992 Cervical Cancer Screening (Pap Smear) 1994 Colon Cancer Screening (Colonoscopy) 2018 Breast Cancer Screening (Mammogram) 11/14/2023 Shingrix-Zoster Vaccine (1 o f 2) 11/14/2023 COVID-19 Vaccine (3 - 2023-2 5 season) 2024 11/04/2021, 10/07/2021 Influenza Vaccine (#1) 2024 , 07/03/2020, 06/27/2018 RSV Ped < 20 months Aged Out No longe r eligible based on patient's age to complete this topic Care Teams Hog Dropper Relationship Specialty Start Date End Date Maggie Guerrero MD [address] [place] [id number] PCP - General Internal Medicine 04/06/20
--- OUTSIDE RECORDS SUMMARY | 2024-12-23 16:49 | XMS_ITS | Data Portability ---
Author Organization [email or web address] Address [address] [place] [id number] Care Team Providers Care Disability Manager Name Role Phone PHYSICIAN [facility] Primary Care Provider HIM CCA OTHER Assessment Encounter Date Assessment Date Assessment LastModified by Organization Details LastModified Time 10/28/2024 10/28/2024 service called for heavy vaginal bleeding found 48 miguel with hx T2DM MS CAD prior menorrhagia reportedly requiring provera c/o 1.5 wk heavy menstrual bleeding requesting check H/H denies lightheadedness, SOB VSS H/H 13.6/40 BMP wnl #Menorrhagia currently stable 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 Vieira was evaluated for congestion and headache and request for COVID testing. Her symptoms have basically resolved. Her vital signs are without hypoxia or fever. She is without increased work of breathing or other concerning findings. Her COVID and FLU tests are negative. At this time she appears safe and is comfortable with remaining at home. I provided real -time medical direction via phone for this encounter, and was available for additional phone based assistance as needed. I have reviewed and agree with the Assessment and Plan as documented by the Booth Cashier. We discussed the diagnostic uncertainty of home visits and the risk associated with this. In this case the patient and I felt this to be an acceptable and reasonable amount of risk given the benefit of avoiding an ED visit. The patient given the opportunity to ask questions. Advised if develops CP/severe SOB/turning blue/uncontrolle d n/v/d or black/bloody emesis or stool/ AMS/ syncope/ hi fever unresponsive to APAP to call 911- verbalized understanding of instruction Not available 12/02/2024 20:58:27 12/11/2024 12/11/2024 Mrs. Vieira presents with Left sided sharp chest pain with radiation to the arm x 2 days, partially relieved by NTG. Her EKG shows no evidence of acute ischemia, but I recommended she be evaluated in the ER for at least one troponin given her prior history and current symptoms. She is agreeable. She will be transported by EMS to [facility]. Report was given to Timo in the ED. Not available 12/11/2024 19:14:03 Plan of Treatment Reminders Order Date Submit Date Provider Last Modified By Organization Details Last Modified Time Details Appointments None recorded. Lab rapid SARS CoV 2 Ag, QL IA, respiratory specimen 2024 025 [facility], [address] [place] [address], [id number] 21:47:40 rapid flu (A+B) [address], [phone] 21:47:40 BMP, serum or plasma 2024 025 [facility], [address] [place] [address], [id number] 5 21:04:01 hemoglobin + hematocrit, blood 2024 025 [facility], [address] [place] [address], [id number] 21:04:27 culture, urine 2024 025 [facility], [address] [place] [address], [address], [place], [address], 5 04:40:59 urinalysis, dipstick [address], [address] 5 07:59:54 glucose, fingerstick , blood [address], [address] 21:56:14 Referral None recorded. Procedures None recorded. Surgeries None recorded. Imaging electrocard iogram 2024 025 JUAQUIN Elmore [facility], [address] [place] [address], [phone] 5 18:11:01 Medication Orders ondansetron 4 mg disintegrat ing tablet 2024 025 [facility][id number], [address], [phone], 5 16:34:17 sulfamethox azole 800 mg-trimetho prim 160 mg tablet 2024 025 [facility] #[id number], [address] [place], [phone], 5 16:36:24 Bactrim DS 800 mg-160 mg tablet 2024 025 [facility] #38134, [address], [place], [phone], 5 16:36:31 ondansetron 4 mg disintegrat ing tablet 2024 025 [facility] [facility] #[id number], [address] [place], [place], [phone], 5 16:36:29 Patient TargetsNo targets recorded. Patient InstructionsNo instructions recorded. Reason for Referral None Reported. Results Created Date Observation Date Name Description Value Unit Range Abnormal Flag Note LastModifiedBy Organization Detail LastModifiedTime 09/06/19 25 09/09/2024 CULTU RE, URINE , ROUTI NE culture, urine, routine SEE NOTE CULTU RE, URINE , ROUTI NE Micro Numbe r: [id number] Test Statu s: Final Speci men Sourc e: Urine Speci men Quali ty: Adequ ate Resul t: Mixed genit al maría isola odilon. These super ficia l bacte sharad are not indic ative of a urina ry tract infec tion. No furth er organ ism ident ifica tion is warra nted on this speci men. If clini elizabeth indic ated, recol lect clean -catc h, mid-s tream urine and trans jess immed iatel y to Urine Cultu re Trans port Tube. Not Available [facility] [address], [place], [address], 09/09/2024 04:40:56 09/06/1909/06/2024 gluco se, finge rstic k, blood Blood Glucose: mg/dl 208 Not Available [address], [address] 09/06/2024 21:55:30 12/12/1912/11/2024 elect jordan harris am No observ ation record ed. [address], [address] 12/11/2024 20:05:08 Result Notes None recorded. Procedures Surgical History None recorded. Imaging Results Imaging Date Name Status LastModified by Organization Details LastModified Time 12/11/2024 electrocardiogram completed [address], [address] 12/11/2024 20:05:08 Procedure Notes None recorded. Medical Equipment None Reported. Allergies Allergen ID Allergen Name Allergen Category Reaction Reaction Severity Criticality Documentation Date Start Date Code Code System Note Provider Name and Address Organization Details Recorded Time 77893 Cipro medicatio n Not available Not available Not available 09/06/202407536 3 RxNorm Not Available [facility] 13:54:25 27671 Product containin g penicilli n (product) medicatio n Not available Not available Not available 09/06/2024 68417 8001 SNOMED Not Available [facility] 12:02:21 Medications Name Sig Start Date Stop Date Status Note LastModified by Organization Details LastModified Time medroxyproge sterone 10 mg tablet TAKE 2 TABLETS BY MOUTH DAILY active Not Available Not Available Not Available nitrofuranto in macrocrystal 50 mg capsule TAKE 1 CAPSULE BY MOUTH AT BEDTIME active Not Available Not Available No t Available gabapentin 600 mg tablet active Not Available Not Available Not Available nitroglyceri n 0.[address] 1 TABLET UNDER THE TONGUE EVERY 5 MINUTES NEEDED FOR CHEST PAIN DO NOT EXCEED 3 DOSES IN 15 MINUTES IF PAIN PERSISTS CALL 911 active Not Available Not Available No t Available meloxicam 15 mg tablet TAKE 1 TABLET BY MOUTH EVERY DAY active Not Available Not Available No t Available bacitracin 500 unit/gram topical ointment APPLY TOPICALLY TO AFFECTED AREA THREE TIMES DAILY FOR 7 DAYS active Not Available Not Available N ot Available amlodipine 2.5 mg tablet TAKE 1 TABLET BY MOUTH EVERY DAY IN THE MORNING active Not Available Not Available No t Available potassium chloride ER 10 mEq tablet,exten ded release TAKE 1 TABLET BY MOUTH EVERY OTHER DAY active Not Available Not Available No t Available sulfamethoxa zole 800 mg-trimethop rim 160 mg tablet Take 1 tablet every 12 hours by oral route for 5 days. active Not Available Not Available Not Available peg-electrol yte solution 420 gram oral solution TAKE 8 OUNCES BY MOUTH DIRECTED active Not Available Not Available No t Available aspirin 81 mg tablet,delay ed release active Not Available Not Available N ot Available amitriptylin e 50 mg tablet active Not Available Not Available Not Available spironolacto ne 25 mg tablet TAKE 1 TABLET BY MOUTH DAILY active Not Available Not Available Not Available baclofen 10 mg tablet TAKE 2 TABLETS BY MOUTH THREE TIMES DAILY active Not Available Not Available Not Available cephalexin 500 mg capsule TAKE 1 CAPSULE BY MOUTH FOUR TIMES DAILY FOR 7 DAYS active Not Available Not Available N ot Available metformin 1,000 mg tablet TAKE 1 TABLET BY MOUTH TWICE DAILY active Not Available Not Available No t Available nitrofuranto in macrocrystal 100 mg capsule TAKE 1 CAPSULE BY MOUTH DAILY FOR PROPHYLAXIS active Not Available Not Available Not Available losartan 25 mg tablet TAKE 1 TABLET BY MOUTH EVERY DAY active Not Available Not Available No t Available metoprolol tartrate 50 mg tablet TAKE 1 TABLET BY MOUTH TWICE DAILY active Not Available Not Available No t Available mupirocin 2 % topical ointment APPLY SMALL AMOUNT TOPICALLY TO THE AFFECTED AREA THREE TIMES DAILY active Not Available Not Available Not Available ergocalcifer ol (vitamin D2) 1,250 mcg (50,000 unit) capsule TAKE ONE CAPSULE BY MOUTH ONCE A WEEK active Not Available Not Available No t Available ibuprofen 600 mg tablet TAKE 1 TABLET BY MOUTH EVERY 6 HOURS NEEDED FOR MENSTRUAL PAIN active Not Available Not Available No t Available ondansetron 4 mg disintegrati ng tablet Place 1 tablet every 8 hours by translingua l route as needed for 3 days. active Not Available Not Available No t Available rosuvastatin 40 mg tablet TAKE 1 TABLET BY MOUTH EVERY DAY active Not Available Not Available No t Available metoprolol tartrate 25 mg tablet TAKE 1 TABLET BY MOUTH TWICE DAILY active Not Available Not Available No t Available coenzyme Q10 200 mg capsule TAKE 1 CAPSULE BY MOUTH DAILY active Not Available Not Available Not Available FeroSul 325 mg (65 mg iron) tablet TAKE 1 TABLET BY MOUTH EVERY DAY active Not Available Not Available No t Available Lantus Solostar U-100 Insulin 100 unit/mL (3 mL) subcutaneous pen ADMINISTER 60 UNITS UNDER THE SKIN EVERY NIGHT AT BEDTIME active Not Available Not Available No t Available Humalog KwikPen (U-100) Insulin 100 unit/mL subcutaneous active Not Available Not Available Not Available cholecalcife rol (vitamin D3) 50 mcg (2,000 unit) tablet TAKE 1 TABLET BY MOUTH DAILY active Not Available Not Available Not Available dalfampridin e ER 10 mg tablet,exten ded release,12 hr active Not Available Not Available Not Available OneTouch Verio test strips USE 1 STRIP DIRECTED ONCE DAILY active Not Available Not Available N ot Available Stimulant Laxative Plus 8.6 mg-50 mg tablet TAKE 1 TABLET BY MOUTH TWICE DAILY NEEDED FOR CONSTIPATIO N active Not Available Not Available No t Available Jardiance 10 mg tablet active Not Available Not Available No t Available OneTouch Delica Plus Lancet 33 gauge USE 1 LANCET DIRECTED ONCE A DAY active Not Available Not Available N ot Available Ozempic 1 mg/dose (4 mg/3 mL) subcutaneous pen injector IMJECT 1 MG UNDER THE SKIN ONCE A WEEK active Not Available Not Available No t Available [facility] COVID-19 Ag Self Test kit TEST DIRECTED TODAY active Not Available Not Available No t Available Ozempic 0.25 mg or 0.5 mg (2 mg/3 mL) subcutaneous pen injector active Not Available Not Available Not Available Vitals Date Recorded Body weight Body height Body temperature Heart rate Oxygen saturation Oxygen saturation in Arterial blood by Pulse oximetry Respiratory rate Systolic blood pressure Diastolic blood pressure Provider Name and Address Organization Details Last Updated DateTime 5 93857.9 28 g 154.94 cm 98.8 [degF] 92 /min 98 % 98 % 18 /min 154 mm[Hg] 77 mm[Hg] Not Available [facility] 16:12:26 Date Recorded Body temperature Respiratory rate Oxygen saturation Oxygen saturation in Arterial blood by Pulse oximetry Heart rate Systolic blood pressure Diastolic blood pressure Provider Name and Address Organization Details Last Updated DateTime 99.9 [degF] 16 /min 97 % 97 % 98 /min 153 mm[Hg] 80 mm[Hg] Not Available [facility] 17:49:38 Date Recorded Body temperature Respiratory rate Heart rate Oxygen saturation Oxygen saturation in Arterial blood by Pulse oximetry Body weight Body height Systolic blood pressure Diastolic blood pressure Provider Name and Address Organization Details Last Updated DateTime 98 [degF] 14 /min 91 /min 98 % 98 % 70937.8 g 152.4 cm 129 mm[Hg] 81 mm[Hg] Not Available [facility] 20:46:36 Date Recorded Respiratory rate Heart rate Oxygen saturation Oxygen saturation in Arterial blood by Pulse oximetry Systolic blood pressure Diastolic blood pressure Provider Name and Address Organization Details Last Updated DateTime 5 18 /min 90 /min 98 % 98 % 126 mm[Hg] 73 mm[Hg] Not Available [facility] 18:08:24 Social History None recorded. Functional Status None recorded. Mental Status None recorded. Family History Nothing Reported. Medical History No medical history recorded. Gynecological HistoryNo gynecological history recorded. Obstetrics History GPAL:G 0 P 0 0 0 0 Past Encounters Encounter ID Performer Location Encounter Start Date Encounter Closed Date Diagnosis/Indication Diagnosis SNOMED-CT Code Diagnosis ICD10 Code Diagnosis Note [id number] SANDRO MANLEY MD [facility] - [facility] [address] [place] [phone] 09/06/2024 16:09:55 09/07/2024 23:59:58 Urinary symptoms 035407642 R39.9 Evaluation in the field was performed by my auto service instructor colleague, as noted above, I provided real-time direction and supervisio n for this visit. The evaluation revealed a 48-year-ol d female with a history of multiple sclerosis and neurogenic bladder (self-cath eterizing 3? 4 times per day), with a history of chronic UTIs on Macrobid suppressio n, presenting with a 3-day history of suprapubic pain, nausea, and chills, similar to prior UTIs. The patient denies fever, back pain, or CVA tenderness . She reports decreased urinary output but is tolerating oral intake well. Vital Signs:BP: 154/77, SpO2: 98% on room air, Heart Rate: Non-tachyc ardic. AfebrilePh ysical Exam:Lower abdominal tenderness without CVA tenderness .Urinalysi s:Negative for leukocytes and nitrites.P ositive for blood, glucose (patient is on Jardiance) , and protein.Bl ood Glucose: 204 mg/dLAller gies: Reviewed. Impression :UTI Plan:-The paramedics were BLS-certif ied and therefore unable to place an IV or administer IV fluids.-A prescripti on for Bactrim was sent to the patient? s pharmacy, and the first dose was administer ed by the paramedics .-The patient was encouraged to maintain adequate oral hydration. -Zofran 4 mg PO was administer ed, and a prescripti on for 3 days was sent to the patient? s pharmacy.- A urine culture will be sent and will follow results.-R ed flags were discussed with the patient. Dispositio n:We discussed the diagnostic uncertaint y of home visits and the risk associated with this. In this case, the patient and I felt this to be an acceptable and reasonable amount of risk given the benefit of avoiding an ED visit. We discussed the need to seek care urgently/e mergently in the setting of any new or worsening serious symptoms, particular ly fever, chills, CP, SOB, worsening nausea, vomiting, back pain, CVA tenderness , ongoing low UOP, inability to tolerate PO or any other concerns. [id number] Drew Vang MD [facility] - [facility] [address] [place] [phone] 10/28/2024 17:49:36 10/29/2024 12:11:40 Menorrhagia [id number] N92.0 [id number] BETITO PINEDA MD [facility] - [facility] [address] [place] [phone] 12/02/2024 20:46:34 12/23/2024 16:34:01 Nasal congestion 24691440 R09.81 [id number] BETITO PINEDA MD Main - [address] [phone] 12/11/2024 18:08:16 12/23/2024 16:42:40 Left sided chest pain 628783011 R07.9 Health Concerns Section Related Observation LastModified by Organization Detai ls LastModified Time None Recorded Concern Status LastModified by Organization Details LastModified Time None Recorded Advance Directives Directive None Recorded Payers Encounter Date Sequence Insurance Name Policy Number Policy Hawkins Covered Member ID Hawkins Member ID Guarantor Name 09/06/2024 1 [facility] - DOS ON OR AFTER 2022 - DUAL ELIGIBLE - CORRECTION OPTIONS AND ONE CARE (MEDICARE REPLACEMENT/ADV ANTAGE - HMO) Poonam Vieira [id number] Poonam Vieira 10/28/2024 1 [facility] [employer] - DOS ON OR AFTER 2022 - DUAL ELIGIBLE - CORRECTION OPTIONS AND ONE CARE (MEDICARE REPLACEMENT/ADV ANTAGE - HMO) Poonam Vieira [id number] Poonam Vieira 12/02/2024 1 [facility] - DOS ON OR AFTER 2022 - DUAL ELIGIBLE - CORRECTION OPTIONS AND ONE CARE (MEDICARE REPLACEMENT/ADV ANTAGE - HMO) Poonam Vieira [id number] Poonam Vieira 12/11/2024 1 [facility] [employer] - DOS ON OR AFTER 2022 - DUAL ELIGIBLE - CORRECTION OPTIONS AND ONE CARE (MEDICARE REPLACEMENT/ADV ANTAGE - HMO) Poonam Vieira [id number] Poonam Vieira Notes Date Note Type Note Provider Name and Address Organization Details Recorded Time 09/06/2024 text/html [facility] Nurse Triage Notes (Dot Nair - RN): Reason For Request: Pt reporting dizziness and nausea for 2 days Chief Complaints: Dizziness, Nausea, Urinary symptoms PMH: Diabetes Mellitus Type 2 Comments: Member calling in a visit for nausea/dizziness/abdo von pain/bladder pain? Feeling like a fever but none.Urinary symptoms- self cath's 4-5/day), last self st. cath at 9am.BP wnl, POC glucose fine. Taking in fluids. Nausea-no vomiting.Takes Aspiring/metoprolol Allergies: Cipro/PCNWill place referral for UTI w/u. Booth Cashier Organization Information for [employer] Legal Name: [email or web address] ? Address: [address] [place] [id number], Hat Brusher Machine: Rickey VALDERRAMA No.: [id number] Booth Cashier POC Test Results from [facility] Urine Dipstick (16:17:43) Urine leukocytes: - CLEMENTE Urine nitrites: - NIT Urine urobilinogen: 2 URO Urine protein: 30+ PRO Urine pH: 6 pH Urine blood: +++ BLO Urine specific gravity: 1.015 SG Urine ketones: - KET Urine bilirubin: 1+ LESIA Urine glucose: 2000++++ GLU Attachments uploaded as part of this test result can be found under Documents section. Blood Glucose Measurement (16:21:14) Blood Glucose: 204 mg/dL Attachments uploaded as part of this test result can be found under Documents section. ..................... ..................... ..................... ..................... ..................... ..................... ............... Booth Cashier Note From [facility]: Responded to apartment residence for 48 year old male with history of Diabetes. Chief complaint of UTI and nausea. Upon arrival, patient was found seated in kitchen. Assessment was performed in seated position in kitchen. Patient was awake, alert, and oriented x 4, acting appropriately, calm, and in no apparent distress. Airway was patent with regular unlabored breathing and skin was warm, dry, and negative for cyanosis and pallor. Patient reported feeling nausea but no vomiting.HEENT: skin in tact with no deformity, discoloration, or inflammation. Pupils were equal and reactive to light bilaterally. Eyes tracking normally. Nose and mouth were unobstructed with moist mucous membranes and tongue, teeth, and lips were in tact. Trachea midline, jugular veins were nondistended in seated position. Respiratory: Denied shortness of breath and pain with breathing. Lungs were clear and equal bilaterally upon auscultation of six posterior points. GI: Patient reported normal appetite. Patient reports eddi-pubic abdominal pain but no vomiting or diarrhea. Abdomen was soft, nontender to palpation of four quadrants with no masses or distension. Skin was in tact with no discoloration. Patient reported pain feeling like period cramps. A urine dipstick was performed and a urine it business systems analyst was taken for [facility] lab send out.: Patient denied flank pain, changes and pain with urination. No CVA tenderness present. Genitals were not examined. Lower Extremities: Weight bearing with steady gait. Skin was in tact with no deformity, discoloration, inflammation, or edema. Bilateral distal motor function, sensation and pedal pulses were present and equal. Upper Extremities: Skin was in tact with no deformities, discoloration, or inflammation present. Bilateral motor function, sensation and radial pulses were present and equal. Allergies to Cipro were verified and patient denied other known allergies. All assessment findings and test results were reported to attending [facility]. No other interventions were performed. Plan of care including prescriptions of Zofran and Bactrim was established and patient verbally acknowledged understanding and agreement with plan. Red Flags were reviewed with patient including but not limited to shortness of breath, chest pain, lightheadedness or syncope, and patient agreed to seek emergency care if they experienced any of these. Patient was left in kitchen w grandchildren. No further patient contact. SC1 was cleared. [facility] ..................... ..................... ..................... ..................... ..................... ..................... ............... [facility] Consulted: Sandro Manley ..................... ..................... ..................... ..................... ..................... ..................... ............... Disposition: Gaston SANDRO MANLEY MD [address] [place] [address],[address], [place], [phone], [email or web address] 09/06/2024 22:05:31 10/28/2024 text/html [facility] Nurse Triage Notes (Lynnette German): Reason For Request: Pt has her period and is bleeding extremely heavy, nervous for amount of bleeding Denies: less than 22 weeks with heavy vaginal bleeding and fever greater than 22 weeks with heavy vaginal bleeding greater than 22 weeks with active abdominal and or back pain Last Menstrual Period greater than 6 weeks ago with sudden onset, lower abdominal pain Chief Complaints: Dizziness PMH: Diabetes Mellitus Type 2, Multiple Sclerosis, Myocardial Infarction PMH Reviewed at 10/28/2024 - 12: Allergies Reviewed at 10/28/2024 - 12:02 Comments: Increased vaginal bleeding for that past 1.5 weeks. Has been on Provera in the past for the same issue. Patient feeling dizzy/lightheaded starting 2 days ago. No syncopal episodes. Educated on services provided.Reviewed RED flags. Patient would like to be evaluated first prior to going to ER. Education provided on the response time and the member was advised to monitor reported s/s and seek emergency treatment if needed. Booth Cashier Organization Information for Fletcher Reyes Business Legal Name: [facility] Address: [address] [place], [place] [address] [place] [id number], Hat Brusher Machine: Naif Soto MD CLIA No.: [id number] Booth Cashier POC Test Results from [facility] Reyes [facility] (17:20:01) pH: 7.44 pH units pCO2: 33.6 mmHg pO2: 49.7 mmHg Na: 143 mmol/L K: 3.8 mmol/L iCa: 1.27 mmol/L Cl: 110 mmol/L TCO2: 21.8 mEq/L Hct: 40 % Hb: 13.6 g/dL Glu: 114 mg/dL Lac: 1.21 mmol/L Cr: 0.5 mg/dL BUN: 13 mg/dL A mmol/L HCO3: 22.7 mmol/L ..................... ..................... ..................... ..................... ..................... ..................... ............... Booth Cashier Note From Fletcher Reyes: This 48-year-old female with a history including but not limited to DM type II, [place], [place] requested a visit today to address ongoing vaginally bleeding for the past week and a half. Patient is requesting to have her blood tested to see if she needs to go to the hospital. Patient denies any chest pain, shortness of breath, abdominal painheadaches, dizziness, fevers, nausea, vomiting, diarrhea. Patient states this is not unusual for her and that she takes medication for it. Patient presents awake and alert, in no acute distress and speaking full sentences. Her vital signs are reasonably stable and she is afebrile. Nonfocal neurological exam. Normal gait. Lungs are clear throughout auscultation. Abdomen is soft, nontender, nondistended. No lower extremity edema. Unremarkable POC labs are uploaded, hematocrit 40, hemoglobin 13.6. We discussed the diagnostic uncertainty of home visits and the risk associated with this. In this case, the patient and I felt this to be an acceptable and reasonable amount of risk given the benefit of avoiding an ED visit. I instructed the patient to follow up with her resolution agent tomorrow morning and present to the emergency department for any new or worsening severe symptoms such as severe dizziness/lightheaded ness, chest pain, shortness of breath, uncontrollable bleeding, high fever, altered mental status. The patient was given the opportunity to ask questions and is agreeable to this plan. ..................... ..................... ..................... ..................... ..................... ..................... ............... [facility] Consulted: Drew Vang ..................... ..................... ..................... ..................... ..................... ..................... ............... Disposition: Fulfilled Drew Vang MD [address] [place] [address],[address], [place], [address], [email or web address] 10/28/2024 18:34:32 12/02/2024 text/html CRC Nurse Triage Notes (Jakob Espinal): Reason For Request: covid test/congestion Patient Reports: Sputum increase ; Cough Denies: Increased work of breathing/labored ? with or without fever Unable to speak in full sentences without distress Discoloration of skin -cyanosis Needs to sleep sitting up, can? t catch breath Shortness of breath in setting of confusion Cough, fever greater than 2 days History of asthma, increased use of inhaler COPD Shortness of breath with exertion Chief Complaints: Common Cold PMH: Diabetes Mellitus Type 2, Multiple Sclerosis, Myocardial Infarction PMH Reviewed at 12/02/2024 - : Allergies Reviewed at 12/02/2024 - : Comments: Machine Brush Maker verified the Pt.'s name//address and phone number. Education provided on the response time and the Pt. was advised to monitor reported s/s and seek emergency treatment if needed. Pt reports feeling unwell with a cough/cold and congestion - Headache - SOB - Speaking full sentences at this time - Denies fever - Symptoms started earlier today - Denies taking over the counter medications. Pt is requesting a COVID test and wellness check Booth Cashier Organization Information for Bertrand Costa [employer] Legal Name: [facility] Address: [address] [place] [address], [place] [address], Hat Brusher Machine: Naif Soto MD CARMELINA No.: [id number] Booth Cashier POC Test Results from Bertrand Costa Rapid COVID antigen (20:43:35) COVID: - Rapid influenza antigen (20:43:36) Flu: - ..................... ..................... ..................... ..................... ..................... ..................... ............... Booth Cashier Note From Bertrand Costa: Patient alert and oriented seated at kitchen table. Patient requests Covid test, they would not give her one at the pharmacy today. Patient reports she was in a public space two days ago. Patient states she complained of a slight headache and mild nasal congestion earlier today.. Patient reports symptoms have subsided, patient denies complaints now. Patient denies difficulty breathing, nausea, vomiting, diarrhea, headache, or any other complaints. Patient pink warm dry secondary exam unremarkable. Patient speaks full sentences, lung sounds clear negative increase work of breathing. No edema noted. Patient negative for Covid and flu via rapid POC. Patient states she is satisfied with visit. [facility] recommend supportive care if if symptoms develop. Red flags And patient education discussed. Patient demonstrates understanding of care and plan. [facility] Lab Orders: rapid SARS CoV 2 Ag, QL IA, respiratory specimen: Performed rapid flu (A+B): Performed ..................... ..................... ..................... ..................... ..................... ..................... ............... [facility] Consulted: Betito Pineda ..................... ..................... ..................... ..................... ..................... ..................... ............... Disposition: Fulfilled BETITO PNIEDA MD [address] [place] [address],[address], [place], [address], [email or web address] 12/02/2024 21:22:22 12/11/2024 text/html CRC Nurse Triage Notes (Lynnette German): Reason For Request: Patient has chest pain, and sharp pains near her Heart area. Patient Reports: History of Heart Attack, in the setting of active chest pain; Active Chest pain, radiates to neck jaw and or arm Denies: Diaphoretic/Sweating Describes as ? crushing? Sudden onset of nausea/Vomiting and shortness of breath. Shortness of Breath Unable to speak in full sentences without distress Chief Complaints: Chest Pain PMH: Diabetes Mellitus Type 2, Multiple Sclerosis, Myocardial Infarction PMH Reviewed at 12/11/2024 - 17:13 Allergies Reviewed at 12/11/2024 - :13 Comments: Patient reports chest pain that started last night at 9pm. Described aching pain to left side of chest and left arm radiating down to elbow. History of [place] in '. Patient took 2 Nitro today at 9am with some resolution but not complete, then pain increasing 3 hours ago. Denies shortness of breath. Rates pain 03/12. Patient declined ER at this time. Reviewed RED flags. Patient agrees to call 911 with worsening s/sx. Booth Cashier Organization Information for Chidi Mont[employer] Legal Name: [email or web address] ? Address: [address] [place] [address], Hat Brusher Machine: Rickey VALDERRAMA No.: [id number] Booth Cashier POC Test Results from Chidi Montilla EKG (18:04:17) EKG test performed. Attachments uploaded as part of this test result can be found under Documents section. ..................... ..................... ..................... ..................... ..................... ..................... ............... Booth Cashier Note From Chidi Montilla: SC6 Dispatched to the address listed above for the report of a female libertarian with chest pain. Arrival on scene, patient was found inside home seated in chair, alert and oriented x4, patent airway, breathing non labored speaking in complete sentences, skin WPD in no obvious distress. +/= Chest rise. -SOB, +CP, -NVD, -Trauma, -Fever. GCS 15. Patient reports that she has been experiencing sharp left sided chest pain, non-reproducible that radiates to her left elbow. Patient also reports intermittent dizziness along with the chest pain. Patient reports history of prior [place] with last one being 02/2022 and had a stent placed. Patient reports no recent trauma, fevers, or respiratory infections. Patient reports normal food/fluid intake and has been medication compliant. Patient reports that she had her 81mg Aspirin PO along with 2 doses of 0.4mg Nitroglycerin SL with minor improvement. Patient vital signs obtained as noted. 12 Lead EKG performed, transmitted to [facility] for remote interpretation, Computer interpretation advised sinus rhythm. [facility] consulted, advised no abnormalities with EKG but still recommends patient go to the hospital to have troponin check which patient agreed to. 911 was called for patient with [facility] enroute. remaining 243mg Aspirin PO administered as patient had 81mg of Aspirin shortly before [facility] arrival. 20 gauge IV established in left AC and secured via saline lock. [facility] 419 BLS unit arrival on scene, [facility] rode with [facility] to hospital due to being a lower level of care. Patient assisted into stretcher x3 EMT and secured x5 straps and x2 side rails in POC, secured into ambulance without incident. Patient vital signs monitored throughout transport. Patient reports that her chest pain had since subsided while transporting to hospital. [facility] report attempted to [facility] but unsuccessful. Arrival at [facility], EMS directed to D POD, patient registered and brought to D2 cary bed. Patient moved onto bed x3 EMT via draw sheet method and secured x2 side rails in POC without incident. Patient report given to receiving nurse and care was transferred. Copy of 12 lead EKG left with receiving hospital. Patient transported without incident. ..................... ..................... ..................... ..................... ..................... ..................... ............... [facility] Consulted: Betito Pineda ..................... ..................... ..................... ..................... ..................... ..................... ............... Disposition: Fulfilled BETITO PINEDA MD [address] [facility],[address] [facility], [place], [address], [email or web address] - Heatmaps[employer]ON HERNDON 12/12/2024 09:14:21 OBGyn Episode No OBEpisode recorded.
== END 2024-12-23 14:44 | disposition home or self-care (01) ==
LOC: HO.HUSH 14:01
PROVIDERS: PCP Internal Medicine; Visit Provider Nurse Practitioner Family
DX: G35 Multiple sclerosis (principal); N31.9 Neuromuscular dysfunction of bladder, unspecified; N39.0 Urinary tract infection, site not specified
CPT/HCPCS: 99213; G2211

== ENCOUNTER 2025-05-20 15:02 | Outpatient (AMB) | payer OTHER, SELFPAY ==
--- NOTE | 2025-05-20 15:14 | A.OFFVIS_ITS ---
Intake Visit Reasons: follow up/PVR Intake Note: Patient is present for PVR F/U Urology Medication:ESTRADIOL Antibiotic Allergy:PENICILLIN V,CIPROFLOXACIN Blood Thinner:ASPIRIN Todays PVR:10ML'S National Sales Director Required: No Allergies ciprofloxacin (Cipro) Allergy (Unknown, Verified 05/20/25 15:47) hives penicillin V Allergy (Unknown, Verified 05/20/25 15:47) hives Medication List - Last Reconciled 05/20/25 by RADHA Tomas- amitriptyline 50 mg PO BEDTIME aspirin 81 mg PO DAILY baclofen 20 mg PO TID catheter (Self-Catheter, Female) As directed 8 times daily cholecalciferol (vitamin D3) (Vitamin D3) 50 mcg PO DAILY dalfampridine ER 0 mg PO empagliflozin (Jardiance) 10 mg PO DAILY estradiol 0.01%(0.1mg/gram) vaginally 3 times a week; pea sized amount to urethra 3 times a week 30 days ferrous sulfate (FeroSul) 0 mg PO medroxyprogesterone 5 mg PO DAILY metoprolol tartrate 25 mg PO BID nitrofurantoin macrocrystal 100 mg PO DAILY 90 days rosuvastatin 40 mg PO DAILY semaglutide (Ozempic) mg subcut sennosides-docusate sodium 8.6-50 mg (Stimulant Laxative Plus) 0 tabs PO spironolactone 25 mg PO DAILY HPI Comments Details: Poonam is a pleasant 49-year-old female patient of Dr. Guerrero. She presents to the office today for follow-up of her neurogenic bladder. In discussion with the patient today she reports to be doing and feeling well. She denies having had any bothersome urinary issues or concerns since her last office visit approximately 5 months ago. She continues to CIC 6-8 times per day. Previous workup has included a retroperitoneal ultrasound 03/26 noting bilateral kidneys no calculi, lesions, and or hydronephrosis. The bladder is well distended and normal. Bladder ureteral jets are demonstrated. Pre void bladder volume is approximately 300 mL. There was no postvoid residual as patient has self catheterized. She had previously decreased her dose of prophylactic Macrobid to 50 mg daily however started experiencing UTI like symptoms therefore dose was readjusted back to 100 mg daily. When asked she reports to be drinking adequate amount of fluid daily. When asked she denies flank pain, hematuria, foul-smelling urine, fever, and or chills. All questions were answered. PVR 10 mL In office urinalysis results reviewed with the patient today. She discusses her daughter recently being diagnosed with lupus. She otherwise offers no other issues or concerns at this time. [facility] Medical History Neurogenic bladder Surgical History Hx of section Family History Father Cancer of unknown origin Mother Esophagus cancer Social History Alcohol intake: never Patient Tobacco Use Status: Never used Tobacco Review of Systems Const Reports as per HPI Eyes Reports no additional complaints ENT Reports no additional complaints Card Reports as per HPI Resp Reports no additional complaints GI Details: Patient reports she follows with GI regarding constipation is currently on Miralax and is due for colonscopy. Reports constipation Reports as per HPI Musc Reports as per HPI Neuro Reports as per HPI Psych Reports no additional complaints Endo Reports no additional complaints Travon/Lymph Reports no additional complaints Aller/Immun Reports no additional complaints Physical Exam Const General: cooperative, healthy appearing, comfortable, no acute distress, well developed, alert and awake Orientation/consciousness: patient oriented x3 Limitations: ambulation with walker Resp Effort & Inspection: normal respiratory effort and able to speak in complete sentences Neuro General: patient oriented x3 Psych Appearance: grossly normal and well kempt Mental Status: mental status grossly normal Speech and movement: Clear speech present Affect: normal affect Attitude: cooperative Thought process: Normal thought process present Thought content: Normal thought content present Insight: Fair insight present (Psych) Judgement: Fair judgement present (Psych) Office Procedures Post Void Residual Post Residual Void Post Void Residual (PVR): 10 [id number] Void Residual by ultrasound Results AMB Urinalysis, Automated UA Leukoctes 0 Dacia/uL Last Edit by ROBERT Larsen on 05/20/25 16:44 UA Nitrite Negative Last Edit by ROBERT Larsen on 05/20/25 16:44 UA Urobilinogen 0.2 mg/dL Last Edit by ROBERT Larsen on 05/20/25 16:4 4 UA Protein 0 mg/dL Last Edit by ROBERT Larsen on 05/20/25 16:44 UA pH 6.0 Last Edit by Bryan Harmon CCM on 05/20/25 16:44 UA Blood 10 Ricky/uL Last Edit by ROBERT Larsen on 05/20/25 16:44 UA Specific [place] 1.010 Last Edit by Bryan Harmon CCM on 05/20/25 16: 44 UA Ketone Negative Last Edit by Bryan Harmon CCM on 05/20/25 16:44 UA Bilirubin 0 mg/dL Last Edit by Bryan Harmon [facility] on 05/20/25 16:44 UA Glucose 1000 mg/dL Last Edit by [facility] on 05/20/[facility] 16:44 Results Reviewed Results Reviewed: Laboratory Last Values Urine pH (Auto) 6.0 05/20/25 16:44 Specific [place] (Auto) 1.010 05/20/25 16:44 Urine Protein (Auto) 0 mg/dL 05/20/25 16:44 Glucose (UA)(Auto) 1000 mg/dL 05/20/25 16:44 Urine Ketones (Auto) Negative 05/20/25 16:44 Urine Blood (Auto) 10 Ricky/uL 05/20/25 16:44 Urine Nitrite (Auto) Negative 05/20/25 16:44 Urine Bilirubin (Auto) 0 mg/dL 05/20/25 16:44 Urine Urobilinogen (Auto) 0.2 mg/dL 05/20/25 16:44 Leukocyte Esterase (Auto) 0 Dacia/uL 05/20/25 16:44 Assessment & Plan Assessment & Plan (1) Neurogenic bladder: Code(s): N31.9 - Neuromuscular dysfunction of bladder, unspecified Category: Medical (2) Recurrent urinary tract infection: Code(s): N39.0 - Urinary tract infection, site not specified Category: Medical Plan In office urinalysis results reviewed with the patient today; as noted above; will send for urine cytology. Continue to CIC as planned. Continue prophylactic Macrobid. She currently denies any UTI like symptoms. She denies any bothersome urinary issues or concerns. Continue with adequate hydration. All questions were answered. Follow-up in 6 months with PVR; or sooner with any issues, concerns, and or questions. Orders: Orders Urine Cytology Today N31.9 - Neuromuscular dysfunction of bladder, unspecified, N39.0 - Urinary tract infection, site not specified AMB Urinalysis Automated Today Z13.9 - Encounter for screening, unspecified Patient Instructions: The patient had an opportunity to ask questions regarding the treatment plan. All questions were answered. Physical exam, labs, and imaging were discussed and reviewed in detail. As well as risks, benefits, and discussion of treatment choices. No major barriers to understanding were identified. The patient expressed understanding and agreement with the above treatment plan. The patient was made aware they should contact our office by phone for worsening of their current condition, the appearance of new symptoms, or with any questions or concerns. Compliance is encouraged with any medications and follow up testing that is ordered. It is a privilege to be allowed the opportunity to participate in? your urological care.? Again, if you have any questions or concerns If you have any questions or concerns please do not hesitate to contact me. The office is [phone]. This note is constructed using voice recognition software. While every effort has been made to ensure accuracy coating machine operator helper errors may have been included. Yours sincerely, MEGAN Tomas Coding Level of Care Code Est Pt Level 3 (08981) Complex EM visit Add On G2211 Diagnoses Neurogenic bladder N31.9 Recurrent urinary tract infection N39.0 CPT Codes Post Residual Void - PVR CPT Code: 23891-Nzfw Void Residual by ultrasound ([id number])
--- OUTSIDE RECORDS SUMMARY | 2025-05-20 18:34 | XMS_ITS | Continuity of Care Document ---
Author Name Guillaume Reyes Address [address] [place] [id number] Organization Unknown Address [address] [place] [address] Medications No known medications Problems No known problems
--- OUTSIDE RECORDS SUMMARY | 2025-05-20 18:34 | XMS_ITS ---
Author Name [facility] History of Medication Use Medication Directions Dispensed Refills Start Date End Date Status medroxyPROGESTERone (PROVERA) 10 mg tablet TAKE 2 TABLETS(20 MG) BY MOUTH DAILY 12/30/19 25 active dalfampridine 10 mg tablet extended release 12 hr Take 1 tablet by mouth every 12 (twelve) hours. 12/18/19 25 active baclofen (LIORESAL) 10 mg tablet TAKE 2 TABLETS BY MOUTH THREE TIMES DAILY 11/29/19 25 active ibuprofen (ADVIL,MOTRIN) 600 mg tablet TAKE 1 TABLET BY MOUTH EVERY 6 HOURS NEEDED FOR MENSTRUAL PAIN 10/21/19 25 active cholecalciferol (VITAMIN D-3) 50 mcg (2,000 unit) tablet Take 1 tablet (2,000 Units total) by mouth 1 (one) time each day. 10/08/19 25 active amitriptyline (ELAVIL) 50 mg tablet TAKE 1 TABLET(50 MG) BY MOUTH AT BEDTIME 09/22/19 25 active diphenhydrAMINE (BENADRYL) injection 50 mg 50 mg, Intravenous, Once, On [place] 04/10/24 at 0915, For 1 doseGive 30 minutes prior to ocrelizumab. IV push over 2-3 minutes. See PO diphenhydramine order. Please give PO or IV. Common Side Effects: Drowsiness, stomach upset, confusion, dry mouth. Administer undiluted. Maximum rate 25 mg/min. 04/10/20 24 024 completed amitriptyline (ELAVIL) tablet 50 mg TAKE 1 TABLET(50 MG) BY MOUTH EVERY NIGHT AT BEDTIME 02/28/20 24 active dalfampridine ER (AMPYRA) 10 MG 12 hr tablet TAKE 1 TABLET EVERY 12 HOURS 10/30/19 24 active empagliflozin (Jardiance) 10 mg tablet 0 Refills, Maintenance, 08/14/23 12:10:00 EST, Partial fill upon patient request if the prescription is for a schedule II opioid drug. 08/14/20 active gabapentin (NEURONTIN) 600 MG tablet TAKE 1 TABLET(600 MG) BY MOUTH THREE TIMES DAILY 06/01/20 active spironolactone (ALDACTONE) 25 mg tablet Take 1 tablet (25 mg total) by mouth. 05/31/20 active gabapentin (NEURONTIN) 600 mg tablet Take 1 tablet (600 mg total) by mouth 3 (three) times a day. 03/20/20 active Ozempic, 0.25 or 0.5 MG/DOSE, 2 MG/1.5ML SOPN 02/23/20 active semaglutide (Ozempic) 0.25 mg or 0.5 mg(2 mg/1.5 mL) injection pen 02/23/20 active insulin aspart (NovoLOG FlexPen U-100 Insulin) 100 unit/mL (3 mL) injection pen 02/14/20 active aspirin 81 mg EC tablet 0 02/12/20 active losartan (COZAAR) 25 mg tablet Take 1 tablet (25 mg total) by mouth. 02/12/20 active insulin glargine (Lantus Solostar U-100 Insulin) 100 unit/mL (3 mL) injection pen ADMINISTER 20 UNITS UNDER THE SKIN DAILY AT BEDTIME 02/09/20 active SUMAtriptan (IMITREX) 50 mg tablet Take 1 tablet (50 mg total) by mouth 2 times daily as needed. 07/20/20 active coenzyme Q-10 200 mg capsule Take 1 capsule (200 mg total) by mouth 1 (one) time each day. 05/23/20 active Coenzyme Q10 (Co Q-10) 200 MG CAPS Take 1 capsule by mouth daily. 05/23/20 active nitrofurantoin (MACRODANTIN) 100 mg capsule Take 1 capsule (100 mg total) by mouth. 10/23/19 active metoprolol succinate (TOPROL-XL) 25 mg 24 hr tablet Take 1 tablet (25 mg total) by mouth. 10/21/19 active nitrofurantoin (MACRODANTIN) 100 MG capsule TK 1 C PO QPM 03/29/20 active ferrous sulfate 325 mg (65 mg elemental iron) tablet TK 1 T PO BID 03/02/20 active senna-docusate (Stimulant Laxative Plus) 8.6-50 mg per tablet Take 1 tablet by mouth 2 (two) times a day if needed. 03/01/20 active methocarbamoL (ROBAXIN) 750 mg tablet Take 1 tablet (750 mg total) by mouth. 07/26/20 active ergocalciferol (VITAMIN D-2) 1,250 mcg (50,000 unit) capsule Take 1 capsule (50,000 Units total) by mouth once a week. - Oral active ocrelizumab (OCREVUS IV) Inject 600 mg into the vein every 6 (six) months. - Intravenous active Ocrelizumab (OCREVUS IV) Inject 600 mg into the vein every 6 (six) months. active sodium chloride 0.9 % parenteral solution 500 mL with ocrelizumab 30 mg/mL solution 600 mg Infuse 600 mg into a venous catheter every 6 months. active Allergies Allergen Reaction Severity Comment Documented Date Source Statu s PENICILLINS Other reaction(s): UNKNOWN 06/22/2022 [facility] active CIPROFLOXACIN-HYDRO CORTISONE ITCHING 10/23/2014 [facility] active Problems Problem Status Onset Date Problem Type Date of Resoluti on Source Multiple sclerosis active 2021-12-02 ProblemAct [facility]THNEMG Lumbar spinal stenosis active 2020-05-07 ProblemAct [facility] HLD (hyperlipidemia) active 2020-05-07 ProblemAct [facility] Multiple sclerosis ([facility] V24, [facility] V28) active 2022-10-10 ProblemAct [facility] DM (diabetes mellitus) ([facility] V24, [facility] V28) active 2020-05-07 ProblemAct [facility]SFR[facility] Immunizations Vaccine Date Source Lot Number Status [facility] (ages 12 & older) JACKIE S-CoV-2 COVID-19, mRNA, LNP-S, regina-sucrose, preservative free 11/04/2021 [facility]_SFRERIC [id number] completed [facility] SARS-CoV-2 COVID-19, mRNA, LNP-S, preservative free 10/07/2021 [facility]_THSFRERIC [id number] completed
--- OUTSIDE RECORDS SUMMARY | 2025-05-20 18:34 | XMS_ITS | Clinical Summary ---
Author Organization [address] [place] [address] Address [address] [place] [address] Phone Care Team Providers Care Glove Cuffer Name Role Phone Maggie Gurerero MD Primary Care Provider [phone] Allergies Active Allergy Reactions Criticality Noted Date [...] (25 mg total) by mouth. 05/31/20 Active coenzyme Q-10 200 mg capsule Take [...] a schedule II opioid drug. 08/14/20 Active ocrelizumab (OCREVUS IV) Inject 600 mg into the vein every 6 (six) months. - Intravenous Active cholecalcifero l (VITAMIN D-3) 50 mcg (2,000 unit) tablet Take 1 tablet (2,000 Units total) by mouth 1 (one) time each day. 90 tablet 1 10/08/19 25 Active baclofen (LIORESAL) 10 mg tablet TAKE 2 TABLETS BY MOUTH THREE TIMES DAILY 180 tablet 5 11/29/19 25 Active medroxyPROGEST ERone (PROVERA) 10 mg tablet TAKE 2 TABLETS(20 MG) BY MOUTH DAILY 180 tablet 2 12/30/19 25 Active dalfampridine 10 mg tablet extended release 12 hr Take 1 tablet by mouth every 12 (twelve) hours. 60 tablet 3 02/06/20 25 Active ibuprofen (ADVIL,MOTRIN) 600 mg tablet Take 1 tablet (600 mg total) by mouth every 6 (six) hours. TAKE 1 TABLET BY MOUTH EVERY 6 HOURS NEEDED FOR MENSTRUAL PAIN 60 tablet 05/07/20 25 2025 Active SUMAtriptan (IMITREX) 50 mg tablet Take 1 tablet (50 mg total) by mouth 1 (one) time if needed for migraine for up to 1 dose. 9 tablet 3 05/07/20 25 Active ergocalciferol (VITAMIN D-2) 1,250 mcg (50,000 unit) capsule Take 1 capsule (50,000 Units total) by mouth 1 (one) time per week. Take 1 capsule (50,000 Units total) by mouth once a week. - Oral 12 each 05/08/20 25 2024 Active amitriptyline (ELAVIL) 50 mg tablet TAKE 1 TABLET(50 MG) BY MOUTH AT BEDTIME 30 tablet 3 05/19/20 25 Active SUMAtriptan (IMITREX) 50 mg tablet Take 1 tablet (50 mg total) by mouth 2 times daily as needed. 07/20/20 21 2024 Discontinued(R eorder) ergocalciferol (VITAMIN D-2) 1,250 mcg (50,000 unit) capsule Take 1 capsule (50,000 Units total) by mouth once a week. - Oral 2024 Discontinued(R eorder) ibuprofen (ADVIL,MOTRIN) 600 mg tablet TAKE 1 TABLET BY MOUTH EVERY 6 HOURS NEEDED FOR MENSTRUAL PAIN 60 tablet 03/09/20 25 2024 Discontinued(R eorder) amitriptyline (ELAVIL) 50 mg tablet TAKE 1 TABLET(50 MG) BY MOUTH AT BEDTIME 30 tablet 3 04/16/20 25 2024 Discontinued Active Problems Problem Noted Date Diagnosed Date Multiple sclerosis ([facility] V24, [facility] V28) DM (diabetes mellitus) ([facility] V24, [facility] V28 ) 05/07/2020 HLD (hyperlipidemia) 05/07/2020 Lumbar spinal stenosis 05/07/2020 Encounters Date Type Department Care Team Description 05/07/2025 10:00 AM EDT - 05/07/2025 11:59 PM EDT Hospital Encounter [facility] Outpatient Rehabil[facility]itation - [address] [phone] Multiple sclerosis ([facility] V24, [facility] V28) (Primary Dx); Encounter for therapeutic drug monitoring Discharge Disposition: Home or Self Care 05/07/2025 10:00 AM EDT Office Visit [facility] - [address] [phone] Hedy Levi MD Multiple sclerosis ([facility] V24, CMS/HCC V28) (Primary Dx); Gait difficulty; High risk medication use; Other fatigue 04/22/2025 2:30 PM EDT Procedure visit Obstetrics and Gynecology - [facility] [address] [phone] Mona Pitts DO Abnormal uterine bleeding (Primary Dx); Thickened endometrium 03/17/2025 12:58 PM EDT - 03/17/2025 11:59 PM EDT Hospital Encounter Radiology Department - [address] [phone] Abnormal uterine bleeding Discharge Disposition: Home or Self Care 03/17/2025 12:58 PM EDT - 03/17/2025 11:59 PM EDT Hospital Encounter Radiology Department - [address] [phone] Encounter for screening mammogram for malignant neoplasm of breast Discharge Disposition: Home or Self Care 03/13/[address] [facility] Outpatient Rehabilititation [address] [phone] Hedy Levi MD 03/09/2025 2:00 PM EDT Office Visit Obstetrics and Gynecology - [facility] [address] [phone] Mona Pitts DO Abnormal uterine bleeding (Primary Dx) 02/19/2025 Telephone Obstetrics and Gynecology - [address] [phone] Lyubov Amador CNM from Last 3 Months Immunizations Name Administration Dates Next Due Scality (ages 12 & older) JACKIE S-CoV-2 COVID-19, mRNA, LNP-S, regina-sucrose, preservative free 11/04/2021 Pfizer SARS-CoV-2 COVID-19, mRNA, LNP-S, preservative free 10/07/2021 Surgical History Surgery Date Site/Laterality Comments OTHER SURGICAL HISTORY PROCEDURE:pinch nerve in neck CARPAL TUNNEL RELEASE 11/23/2020 PROCEDURE:CARPAL TUNNEL RELEASE CAROTID STENT PROCEDURE:CAROTID STENT Medical History Medical History Date Comments Migraine DX:Migraine Multiple sclerosis ([facility] V24, [facility] V28) 01/15/2012 DX:Multiple sclerosis (HCC) Hypertension DX:Hypertension Arthritis 2020 DX:Arthritis;COM MENT:Right Hip Heart attack ([facility] V24, [facility] V28) DX:Heart attack (HCC) Diabetes mellitus ([facility] V 24, [facility] V28) DX:Diabetes mellitus (HCC) Family History Medical [...] = 0.6 oz pur e alcohol) Comments No Sex and Gender Information Value Date Recorded Sex Assigned at Not on file Legal Sex Female 6:52 PM EST Gender Identity Not on file Sexual Orientation Not on file Obstetrics History Para Term AB IAB SAB Ectopic Multiple Livin g Live Births 10 5 5 0 0 0 5 5 Date Outcome GA Total Labor Labor/2nd/3rd Weight Sex Type Anes PTL Lashae A1 A5 Name Clin CS-LT ranv Term Vag-S pont Living Term Vag-S pont Living Term CS-Un spec Living Term CS-Un spec Living Term CS-Un spec Living 1992 1994 CS-LV ertic al 1998 CS-LT ranv 2007 Last Filed Vital Signs Vital Sign Reading Time Taken Comments Blood Pressure 117/63 05/07/2025 1:27 PM EDT Pulse 94 05/07/2025 1:27 PM EDT Temperature 36.3 C (97.3 F) 05/07/2025 1:27 PM EDT Respiratory Rate 16 05/07/2025 1:27 PM EDT Oxygen Saturation 97% 05/07/2025 1:27 PM EDT Inhaled Oxygen Concentration - - Weight 85.5 kg (188 lb 9.6 oz) 04/22/2025 2:36 P M EDT Height 154.9 cm (5' 1 ) 03/09/2025 1:57 PM EDT Body Mass Index 35.64 03/09/2025 1:57 PM EDT Plan of Treatment Upcoming Encounters Date Type Department Care Team (Late st Contact Info) Description 06/08/2025 9:00 AM EDT Evaluation [facility] [place] [address] [facility] [address] [place] [phone], [place]LE[place] 06/08/2025 10:45 AM EDT Office Visit Obstetrics and Gynecology - [facility] [address] [place], [place] [phone] Mona Pitts, [address] [place], [place] 11/04/2025 8:00 AM EST Appointment [facility] - [place] [address] [facility] [address] [place] [phone] 11/04/2025 8:00 AM EST Office Visit [facility] [place] [address] [facility] [address] [place] [phone] Tasia Ruvalcaba, LILY [address] [facility] [address] [place] [address] Health Maintenance Due Date Last Done Comments Diabetes: Annual Foot Exam 11/14/1983 Diabetes: Annual Retina Eye Exam 11/14/1983 Hepatitis B Vaccines (1 of 3 - 19+ 3-dose series) 1992 Pneumococcal Vaccine: 50+ Years (1 of 2 - PCV) 1992 Colorectal Cancer Screening: Colonoscopy 08/10/2022 HIV Screening 08/10/2022 Hepatitis C Screening 08/10/2022 Medicare Annual Wellness Visit 08/10/2022 Social Influencers of Health Screening 08/10/2022 Zoster Vaccines (1 of 2) 11/14/2023 Cervical Cancer Screening: Pap Smear 05/04/2024 05/04/2021 Depression Screening 09/03/2024 Diabetes: Blood Sugar Control Test (HGBA1C) 02/13/2025 08/15/2024, 04/05/2024 COVID-19 Vaccine ( season) 2025 11/04/2021, 10/07/2021 Influenza Vaccine (#1) 2025 , 05/05/2021, 07/03/2020, Additional history exists Diabetes: Annual Urine Albumin-Creatinine Ratio (uACR) 08/15/2025 08/15/2024, 10/04/2023, 10/04/2023 Diabetes: Annual GFR (Glomerular Filtration Rate) 05/07/2026 05/07/2025, 11/04/2024 Hypertension/CHF/CAD Annual BMP Blood Test 05/07/2026 05/07/2025, 11/04/2024 Breast Cancer Screening 03/17/2027 03/17/20, 10/25/2023, 06/29/2022, Additional history exists Cholesterol Screening (Lipid Panel) 08/15/2029 08/15/2024, 04/05/2024 [...] Diagnosis Comments CBC WITH AUTO DIFFERENTIAL Routine 05/07/2025 10:14 AM EDT Multiple sclerosis ([facility]/HCC V24, [facility] V28) Encounter for therapeutic drug monitoring HEPATIC FUNCTION PANEL Routine 05/07/2025 10:14 AM EDT Multiple sclerosis (CMS/HCC V24, CMS/HCC V28) Encounter for therapeutic drug monitoring CBC AND DIFFERENTIAL Routine 05/07/2025 10:14 AM EDT Multiple sclerosis ([facility]/HCC V24, CMS/HCC V28) Encounter for therapeutic drug monitoring VITAMIN D 25 HYDROXY Routine 05/07/2025 10:14 AM EDT Multiple sclerosis (CMS/HCC V24, CMS/HCC V28) Encounter for therapeutic drug monitoring VITAMIN B12 Routine 05/07/2025 10:14 AM EDT Multiple sclerosis (CMS/HCC V24, [facility] V28) Encounter for therapeutic drug monitoring CREATININE, SERUM Routine 05/07/2025 10: 14 AM EDT Multiple sclerosis ([facility] V24, [facility] V28) Encounter for therapeutic drug monitoring BUN Routine 05/07/2025 10:14 AM EDT Multiple sclerosis ([facility] V24, [facility] V28) Encounter for therapeutic drug monitoring TISSUE EXAM Routine 04/22/2025 3:42 PM EDT Abnormal uterine bleeding Thickened endometrium MN ENDOMETRIAL SAMPLING W/WO ENDOCERVICAL SAMPLING W/O CERVICAL DILATION Routine 04/22/2025 2:56 PM EDT Abnormal uterine bleeding Thickened endometrium US PELVIS NON OB COMPLETE W TRANSVAGINAL Routine 03/17/2025 3:19 PM EDT Abnormal uterine bleeding MG MAMMO DIGITAL SCREENING W WAGNER BILAT Routine 03/17/2025 1:23 PM EDT Encounter for screening mammogram for malignant neoplasm of breast HEMOGLOBIN AND HEMATOCRIT Routine 03/09/2025 2:45 PM EDT Abnormal uterine bleeding HEMOGLOBIN A1C Routine 04/05/2024 LIPID PANEL Routine 04/05/2024 HM URINE ALBUMIN CREATININE RATIO Routine 10/04/2023 PAP SMEAR Routine 05/04/2021 from Last 3 Months or Most Recently Relevant to Health Maintenance Results * CBC auto differential (05/07/2025 10:14 AM EDT) [facility] WBC 6.0 4.8 - 10.8 K/mcL LAB HEMETOLOGY METHOD 05/07/2025 1:54 PM EDT [facility] RBC 4.50 3.80 - 4.80 M/mcL LAB HEMETOLOGY METHOD 05/07/2025 1:54 PM EDT [facility] Hemoglobin 13.5 11.5 - 16.0 g/dL LAB HEMETOLOGY METHOD 05/07/2025 1:54 PM EDT [facility] Hematocrit 41.1 35.0 - 47.0 % LAB [facility] MCV 92.2 79.0 - 98.0 FL LAB HEMETOLOGY METHOD 05/07/2025 1:54 PM EDT [facility] MCH 30.3 27.0 - 32.0 pcg LAB HEMETOLOGY METHOD 05/07/2025 1:54 PM EDT [facility] MCHC 32.8 32.0 - 37.0 g/dL LAB HEMETOLOGY METHOD 05/07/2025 1:54 PM EDT [facility] RDW 13.2 11.0 - 15.0 % LAB HEMETOLOGY METHOD 05/07/2025 1:54 PM EDT [facility] Platelets 171 130 - 400 K/mcL LAB HEMETOLOGY METHOD 05/07/2025 1:54 PM EDT [facility] MPV 10.3 7.0 - 11.0 FL LAB HEMETOLOGY METHOD 05/07/2025 1:54 PM EDT [facility] NRBC 0.0 <1.0 % LAB HEMETOLOGY METHOD 05/07/2025 1:54 PM EDT [facility] NRBC Absolute 0.00 <0.10 K/mcL LAB HEMETOLOGY METHOD 05/07/2025 1:54 PM EDT [facility] Neutrophils Relative 65.6 % LAB HEMETOLOGY METHOD 05/07/2025 1:54 PM [facility] Lymphocytes Relative 17.2 % LAB HEMETOLOGY METHOD 05/07[facility]2025 [facility] Monocytes Relative 12.4 % LAB HEMETOLOGY METHOD 05/07[facility]2025 [facility] Eosinophils Relative 3.8 % LAB HEMETOLOGY METHOD 05/07/2025 1:54 PM [facility] Basophils Relative 0.7 % LAB HEMETOLOGY METHOD 05/07/2025 1:54 PM [facility] Immature Granulocytes Relative 0.3 % LAB HEMETOLOGY METHOD 05/07/2025 1:54 PM [facility] Neutrophils Absolute 3.95 1.50 - 7.00 K/mcL LAB HEMETOLOGY METHOD 05/07/2025 1:54 PM [facility] Lymphocytes Absolute 1.04 1.00 - 5.00 K/mcL LAB HEMETOLOGY METHOD 05/07/2025 1:54 PM [facility] Monocytes Absolute 0.75 0.20 - 1.00 K/mcL LAB HEMETOLOGY METHOD 05/07/2025 [facility] Eosinophils Absolute 0.23 0.00 - 0.50 K/mcL LAB HEMETOLOGY METHOD 05/07/2025 1:54 PM [facility] Basophils Absolute 0.04 0.00 - 0.20 K/mcL LAB HEMETOLOGY METHOD 05/07/2025 [facility] Immature Granulocytes Absolute 0.02 0.00 - 0.03 K/mcL LAB HEMETOLOGY METHOD 05/07/2025 1:54 PM EDT [facility] Blood Venous blood specimen / Unknown Venipuncture / Unknown 05/07/2025 10:14 AM EDT 05/07/2025 10:14 AM EDT [facility] [place] [facility] BLOOD ORDERABLES Final R esult Performing Organization Address City/[facility]/ZIP Co de Phone Number [facility] [address] [place] [address], * Creatinine (05/07/2025 10:14 AM EDT) Creatinine 0.60 0.50 - 1.10 mg/dL LAB CHEMISTRY METHOD 05/07/2025 3:17 PM EDT [facility] eGFR 109 >=60 mL/min/1. 73m2 LAB CHEMISTRY METHOD 05/07/2025 3:17 PM EDT [facility] Comment:Calculation based on the Chronic Kidney Disease Epidemiology Collaboration (CKD-EPI) equation refit without adjustment for race. Blood Venous blood specimen / Unknown Venipuncture / Unknown 05/07/2025 10:14 AM EDT 05/07/2025 10:14 AM EDT Tasia BAUTISTA LAB BLOOD ORDERABLES Final R esult [facility] [address] [place] [address], * (ABNORMAL) Vitamin D 25 hydroxy (05/07/2025 10:14 AM EDT) Vit D, 25-Hydroxy 26.6(L) 30.0 - 80.0 ng/mL LAB CHEMISTRY METHOD 05/07/2025 4:41 PM EDT [facility] Blood Venous blood specimen / Unknown Venipuncture / Unknown 05/07/2025 10:14 AM EDT 05/07/2025 10:14 AM EDT Tasia BAUTISTA LAB BLOOD ORDERABLES Final R esult [facility] [address] [place] [address], [place] [phone] * BUN (05/07/2025 10:14 AM EDT) [facility] BUN 8 5 - 25 mg/dL LAB CHEMISTRY METHOD 05/07/2025 3:17 PM EDT [facility] Blood Venous blood specimen / Unknown Venipuncture / Unknown 05/07/2025 10:14 AM EDT 05/07/2025 10:14 AM EDT Tasia BAUTISTA LAB BLOOD ORDERABLES Final R esult Performing Organization Address City/[facility]/ZIP Co de Phone Number [facility] [address] [place] [address], [place] [phone] * (ABNORMAL) Vitamin B12 (05/07/2025 10:14 AM EDT) [facility] Vitamin B-12 1,461(H) 250 - 900 pcg/mL LAB CHEMISTRY METHOD 05/07/2025 3:47 PM EDT [facility] Blood Venous blood specimen / Unknown Venipuncture / Unknown 05/07/2025 10:14 AM EDT 05/07/2025 10:14 AM EDT [facility] LAB BLOOD ORDERABLES Final R esult [facility] [address] [place] [address], [place] [phone] * (ABNORMAL) Hepatic function panel (05/07/2025 10:14 AM EDT) Total Protein 6.5 6.0 - 8.0 g/dL LAB CHEMISTRY METHOD 05/07/2025 3:47 PM EDT [facility] Albumin 3.6 3.2 - 5.0 g/dL LAB CHEMISTRY METHOD 05/07/2025 3:47 PM T [facility] Total Bilirubin 0.5 0.0 - 1.4 mg/dL LAB CHEMISTRY METHOD 05/07/2025 3:47 PM EDT [facility] Bilirubin, Direct 0.2 0.0 - 0.3 mg/dL LAB CHEMISTRY METHOD 05/07/2025 3:47 PM EDT [facility] Bilirubin, Indirect 0.3 0.0 - 1.1 mg/dL LAB CHEMISTRY METHOD 05/07/2025 3:47 PM [facility] ALT (SGPT) 62(H) 10 - 60 unit/L LAB CHEMISTRY METHOD 05/07/2025 3:47 PM T [facility] AST (SGOT) 53(H) 10 - 42 unit/L LAB CHEMISTRY METHOD 05/07/2025 3:47 PM EDT [facility] Alkaline Phosphatase 94 42 - 121 unit/L LAB CHEMISTRY METHOD 05/07/2025 3:47 PM [facility] Blood Venous blood specimen / Unknown Venipuncture / Unknown 05/07/2025 10:14 AM EDT 05/07/2025 10:14 AM EDT us Tasia BAUTISTA LAB BLOOD ORDERABLES Final R esult [facility] [address] [place] [address], * Tissue Exam (04/22/2025 3:42 PM EDT) Final Diagnosis Endometrial biopsy: Glandular atrophy and stromal pseudo-deciduali zation, consistent with progestin effect No endometrial polyp, hyperplasia or neoplasm identified 04/24/2025 11:39 AM EDT [facility] Clinical Information Abnormal uterine bleeding (N93.9) 04/24/2025 11:39 AM EDT [facility] Gross Description A. Endometrium, emb: Labeled Endo and EMB on the top of the lid . Received in formalin is a 1.5 x 0.8 x 0.15 cm aggregate of soft, esteban-red tissue fragments and predominating blood clot, which is wrapped in paper and submitted in toto in one cassette, multiple pieces, x 2. TS 04/24/2025 11:39 AM EDT [facility] Disclaimer Unless otherwise specified, all tissue is 10% NB formalin fixed and paraffin embedded. 04/24/2025 11:39 AM EDT [facility] Tissue Endometrial structure / Unknown Non-blood Collection / Unknown 04/22/2025 3:42 PM EDT 04/22/2025 3:42 PM EDT Mona Pitts DO LAB PATHOLOGY ORDERABLES Chaya ramirez Result [facility] [address] [place] [address], * MN ENDOMETRIAL SAMPLING W/WO ENDOCERVICAL SAMPLING W/O CERVICAL DILATION (04/22/2025 2:56 PM EDT) Narrative Mona Pitts DO - 04/22/2025 2:56 PM EDT Mona Pitts DO 04/22/2025 2:57 PM Endometrial biopsy Indication: abnormal uterine bleeding Date/Time: 04/22/2025 2:56 PM Performed by: Mona Pitts DO Authorized by: Mona Pitts DO Informed Consent: Relevant images/test results available and reviewed: yes Health status cleared: Yes Procedure/treatment, purpose, treatment alternatives, risks/potential complications and benefits explained: yes Risk/complications/benefits details: Bleeding, discomfort, inadequate sample Patient questions answered: yes Patient agrees, verbalizes understanding, and wants to proceed: yes Consent given by: Patient Informed consent discussion completed by Physician/SHARON with patient: Written; patient signed and dated; copy to patient Pre-procedure: Negative urine test: Yes Uterus size: 9-10 weeks Uterus position: Anteverted Procedure: A speculum was placed into the vagina and the cervix was prepped with: Betadine Cervix stablized: With allis Cervix dilation: no Uterus sounded: no Cervix: normal Number of passes to obtain adequate specimen: 2 Hemostasis achieved with: Applied pressure Patient tolerated procedure well with no complications: yes us Mona Pitts DO IN CLINIC/BEDSIDE ORDERABLES Final Result * US Pelvis Non OB Complete w Transvaginal (03/17/2025 3:19 PM EDT) Anatomical Region Laterality Modality Body, Pelvis Ultrasound 03/17/2025 6:44 PM EDT Impressions 03/17/2025 6:49 PM EDT Endometrial complex measures 0.9 cm in thickness without focal abnormality. Heterogeneous myometrium without a discrete solid lesion could be due to underlying fibroid disease or adenomyosis. POS [id number] -------- FINAL REPORT -------- Dictated By: Traci Angel Dictated Date: 03/17/2025 18:44 ET Assigned Physician: Traci Angel Reviewed and Electronically Signed By: Traci Angel Signed Date: 03/17/2025 18:49 ET Workstation ID: [id number] Transcribed By: Self Edit Transcribed Date: 03/17/2025 18:44 ET Narrative 03/17/2025 6:49 PM EDT PELVIC ULTRASOUND HISTORY: Menorrhagia. Abnormal uterine bleeding. COMPARISON: 09/14/2020 FINDINGS: Both transabdominal and endovaginal pelvic ultrasound were performed. Uterus: 11.0 x 6.5 x 4.8 cm in size. Myometrium is heterogeneous without a discrete lesion identified. section scar causes shadowing and limits assessment of the lower uterine segment. Endometrium: 0.9 cm in thickness. No focal abnormality identified. Right ovary: Only visualized transabdominally. Normal in size measuring 2.0 x 1.8 x 1.3 cm without abnormality. Left ovary: Only visualized transabdominally. Normal in size measuring 2.7 x 2.1 x 2.0 cm without abnormality. Cul-de-sac: No free fluid. Procedure Note Traci Agnel MD - 03/17/2025 PELVIC ULTRASOUND HISTORY: Menorrhagia. Abnormal uterine bleeding. COMPARISON: 09/14/2020 FINDINGS: Both transabdominal and endovaginal pelvic ultrasound were performed. Uterus: 11.0 x 6.5 x 4.8 cm in size. Myometrium is heterogeneous withouta discrete lesion identified. section scar causes shadowing andlimits assessment of the lower uterine segment. Endometrium: 0.9 cm in thickness. No focal abnormality identified. Right ovary: Only visualized transabdominally. Normal in size measuring2.0 x 1.8 x 1.3 cm without abnormality. Left ovary: Only visualized transabdominally. Normal in size measuring 2.7x 2.1 x 2.0 cm without abnormality. Cul-de-sac: No free fluid. IMPRESSION: Endometrial complex measures 0.9 cm in thickness without focalabnormality. Heterogeneous myometrium without a discrete solid lesioncould be due to underlying fibroid disease or adenomyosis. POS [id number] -------- FINAL REPORT -------- Dictated By: Traci Angel Dictated Date: 03/17/2025 18:44 ET Assigned Physician: Traci Angel Reviewed and Electronically Signed By: Traci Angel Signed Date: 03/17/2025 18:49 ET Workstation ID: [id number] Transcribed By: Self Edit Transcribed Date: 03/17/2025 18:44 ET us Mona Pitts DO IMG US PROCEDURES Final Resul t * MG Mammo Digital Screening w Wagner bilat (03/17/2025 1:23 PM EDT) Anatomical Region Laterality Modality Breast Bilateral Mammography 03/18/2025 4:38 PM EDT Impressions 03/18/2025 4:42 PM EDT 1. No mammographic evidence of malignancy 2. Scattered fibroglandular tissue BI-RADS CATEGORY: 2 - BENIGN RECOMMENDATION: Screening bilateral mammogram is recommended in 1 year. Mammo Location: [facility], [address] [place] [address], [id number], . -------- FINAL REPORT -------- Dictated By: Chi Crowell Dictated Date: 03/18/2025 16:38 ET Assigned Physician: Chi Crowell Reviewed and Electronically Signed By: Chi Crowell Signed Date: 03/18/2025 16:42 ET Workstation ID: [id number] Transcribed By: Self Edit Transcribed Date: 03/18/2025 16:38 ET Narrative 03/18/2025 4:42 PM EDT A BILATERAL DIGITAL 3D SCREENING MAMMOGRAPHY HISTORY: Routine screening. COMPARISON: Multiple priors dating back to 10/11/2020 Technique: Bilateral full field digital mammography (3D) was performed using standard CC and MLO projections CAD was used to evaluate this mammogram. FINDINGS: Right: No suspicious masses, groups of microcalcification or areas of architectural distortion identified. Stable typically benign parenchymal asymmetries. Left: No suspicious masses, groups of microcalcification or areas of architectural distortion identified. Stable typically benign parenchymal asymmetries. BREAST DENSITY: B - There are scattered areas of fibroglandular density. Procedure Note Chi Crowell MD - 03/18/2025 A BILATERAL DIGITAL 3D SCREENING MAMMOGRAPHY HISTORY: Routine screening. COMPARISON: Multiple priors dating back to 10/11/2020 Technique: Bilateral full field digital mammography (3D) was performedusing standard CC and MLO projections CAD was used to evaluate this mammogram. FINDINGS: Right: No suspicious masses, groups of microcalcification or areas ofarchitectural distortion identified. Stable typically benign parenchymalasymmetries. Left: No suspicious masses, groups of microcalcification or areas ofarchitectural distortion identified. Stable typically benign parenchymalasymmetries. BREAST DENSITY: B - There are scattered areas of fibroglandular density. IMPRESSION: 1. No mammographic evidence of malignancy 2. Scattered fibroglandular tissue BI-RADS CATEGORY: 2 - BENIGN RECOMMENDATION: Screening bilateral mammogram is recommended in 1 year. Mammo Location: [facility], [address], [place], [address], . -------- FINAL REPORT -------- Dictated By: Chi Crowell Dictated Date: 03/18/2025 16:38 ET Assigned Physician: Chi Crowell Reviewed and Electronically Signed By: Chi Crowell Signed Date: 03/18/2025 16:42 ET Workstation ID: [id number] Transcribed By: Self Edit Transcribed Date: 03/18/2025 16:38 ET Maggie Guerrero MD IMG BI PROCEDURES Final Result * Hemoglobin and hematocrit (03/09/2025 2:45 PM EDT) Hemoglobin 13.4 11.5 - 16.0 g/dL LAB HEMETOLOGY METHOD 03/09/2025 6:38 PM EDT [facility] Hematocrit 40.6 35.0 - 47.0 % LAB HEMETOLOGY METHOD 03/09/2025 6:38 PM EDT [facility] Blood Venous blood specimen / Unknown Venipuncture / Unknown 03/09/2025 2:45 PM EDT 03/09/2025 2:45 PM EDT Mona Pitts DO LAB BLOOD ORDERABLES Final Re sult [facility] [address] [place] [address], * Hemoglobin A1c (04/05/2024) Hemoglobin A1C 0.0 % Comment:no interpretation, a bstracted Blood Venous blood specimen / Unknown Sheree Tan MD LAB BLOOD ORDERABLES Chaya l Result * Lipid panel (04/05/2024) Triglycerides 0 mg/dL Comment:no interpretation, a bstracted Cholesterol 0 mg/dL Comment:no interpretation, a bstracted HDL 0 mg/dL Comment:no interpretation, a bstracted LDL Cholesterol 0 mg/dL Comment:no interpretation, a bstracted Blood Venous blood specimen / Unknown Result [facility] Historical Provider LAB BLOOD ORDERABLES Chaya l Result * Urine Albumin Creatinine Ratio (10/04/2023) Urine Albumin Creatinine Ratio abstracted Historical Provider HEALTH MAINTENANCE Final Result * Pap smear (05/04/2021) 05/04/2021 Narrative HISTORICAL TESTING LAB RESULTING AGENCY - 05/13/2021 7:41 AM EDT [id number] THINPREP PAP, IMAGED: NEGATIVE FOR SQUAMOUS INTRAEPITHELIAL LESION AND MALIGNANCY . SHIFT IN BREEZY SUGGESTIVE OF BACTERIAL VAGINOSIS. SHAHZAD FATIMA(ASCP) (CASE ELECTRONICALLY SIGNED 05 12 2021) RESULT OF APTIMA HIGH RISK HPV ASSAY: HIGH RISK HPV: NEGATIVE (SEROTYPES 16,18,31,33,35,39,45,51,52,56,58,59,66,68) COMPLETED ON 2021-05-06 ADEQUACY: SATISFACTORY ENDOCERVICAL/TRANSFORMATION ZONE COMPONENT PRESENT. SOURCE: THINPREP PAP HPV ANY DX: REFLEX 16 AND 18, CERVICAL, IMAGED CLINICAL INFORMATION: HPV ANY DIAGNOSIS. HORMONES, PAP HX NEG, NO LMP RECORDED, IRREGULAR MENSES [Z12.4] Mona Pitts DO LAB CYTOLOGY ORDERABLES Final Result HISTORICAL TESTING LAB RESULTING AGENCY from Last 3 Months or Most Recently Relevant to Health Maintenance Insurance [employer] MEDICARE Member Subscriber Plan / Payer (Ef fective 2019-Present) Name:FABI VIEIRA Relation to Subscriber:Self Name:Ifeanyi Vieirada T Payer ID:[id number] Group ID:[id number] Type:Not on file Address: [place] [address] [place] [id number] Care Teams Glove Cuffer Relationship Specialty Start Date End Date Maggie Guerrero MD [address] [place] [address] PCP - General 12/11/07
--- OUTSIDE RECORDS SUMMARY | 2025-05-20 18:34 | XMS_ITS | Clinical Summary ---
Author Organization [facility] Address [address] [place] [address] Care Team Providers Care Invisible Braces Orthodontist Name Role Phone Maggie Guerrero MD Primary Care Provider [phone] Allergies Active Allergy Reactions Criticality Noted Date [...] 5 03/11/2024 Active ergocalciferol (VITAMIN D2) capsule 96166 units Take 1 capsule (50,000 Units total) [...] 79 04/10/2024 11:23 AM EDT Temperature 35.9 C (96.7 F) 04/10/2024 11:23 AM EDT Respiratory Rate 18 04/10/2024 11:23 AM EDT [...] f 2) 11/14/2023 COVID-19 Vaccine (3 - 2024-2 6 season) 2025 11/04/2021, 10/07/2021 Influenza Vaccine (#1) 2025 , 07/03/2020, 06/27/2018 RSV Ped < 20 months Aged Out No longe r eligible based on patient's age to complete this topic Care Teams Invisible Braces Orthodontist Relationship Specialty Start Date End Date Maggie Guerrero MD [address] [place] [id number] PCP - General Internal Medicine 04/06/20
--- OUTSIDE RECORDS SUMMARY | 2025-05-20 18:34 | XMS_ITS | Clinical Summary ---
Author Organization [facility] Address [address] [place] [address] Phone Care Team Providers Care Livestock Buyer Name Role Phone Maggie Guerrero MD Primary Care Provider Allergies Active Allergy Reactions Criticality Noted Date Comments Ciprofloxacin Hives 07/05/2023 Penicillins Hives 12/19/2013 Other reaction(s): UNKNOWN Medications spironolactone (ALDACTONE) 25 MG tablet Take 1 tablet by mouth every morning. 06/13/20 23 Active polyethylene glycol (MIRALAX) 17 gram/dose powder 2 (two) times a week. 06/15/20 23 Active metoprolol tartrate (LOPRESSOR) 50 MG tablet Take 25 mg by mouth 2 (two) times a day. 02/12/20 22 Active gabapentin (NEURONTIN) 600 MG tablet Take 1 tablet by mouth 3 (three) times a day. 07/01/20 Active FEROSUL 325 mg (65 mg iron) tablet Take 1 tablet by mouth 2 (two) times a day. 06/13/20 Active cholecalciferol (VITAMIN D3) 5,000 unit capsule Take 125 mcg by mouth daily. 03/09/20 22 Active baclofen (LIORESAL) 10 MG tablet Take 2 tablets by mouth 3 (three) times a day. 06/01/20 Active aspirin 81 MG EC tablet Take 1 tablet by mouth daily. 05/14/20 Active amitriptyline (ELAVIL) 50 MG tablet Take 1 tablet by mouth daily. 06/25/20 23 Active blood-glucose sensor (FREESTYLE LEI 3 SENSOR) DeviIndications: Type 2 diabetes mellitus with hyperglycemia, with long-term current use of insulin 1 Application by Miscellaneous route 4 (four) times a day. 2 each 07/05/20 Active freestyle lei 3 reader One unspecified by miscellaneous 1 each 08/15/20 Active CO Q-10 200 mg capsule Take 1 capsule by mouth every morning. 01/24/20 Active potassium chloride (KLOR-CON) 10 MEQ ER tablet Take 10 mEq by mouth every other day. 03/18/20 Active ONETOUCH DELICA PLUS LANCET 33 gauge Misc Inject 1 each into the skin daily. 02/01/20 Active dalfampridine (AMPYRA) 10 mg Tb12 ER tablet Take 10 mg by mouth 2 (two) times a day. 03/27/20 Active ONETOUCH VERIO Strp strips 1 each daily. 01/31/20 Active insulin lispro (ADMELOG, HUMALOG) 100 unit/mL injection penIndications:T ype 2 diabetes mellitus with hyperglycemia, with long-term current use of insulin Use 3 times a day with meals based on the correction scale below. 70-100 =2 unit 101-150 =4 units 151-200 = 6 units 201-250 =8 units 251-300 =10 units 301-350 =12 units 351-400 =14 units greater than 400 =16 units 15 mL 1 08/15/20 Active ezetimibe (ZETIA) 10 mg tablet Take 1 tablet by mouth every morning. 02/12/20 Active semaglutide (OZEMPIC) 2 mg/dose (8 mg/3 mL) subcutaneous injection penIndications:T ype 2 diabetes mellitus with hyperglycemia, with long-term current use of insulin Inject 2 mg under the skin every 7 days. 9 mL 02/19/20 Active insulin glargine 100 unit/mL (3 mL) InPn injection penIndications:T ype 2 diabetes mellitus with hyperglycemia, with long-term current use of insulin Inject 60 Units under the skin nightly at bedtime. 60 mL 02/19/20 25 Active empagliflozin (JARDIANCE) 10 mg tabletIndication s:Type 2 diabetes mellitus with hyperglycemia, with long-term current use of insulin TAKE 1 TABLET(10 MG) BY MOUTH DAILY 90 tablet 1 02/19/20 25 Active rosuvastatin (CRESTOR) 40 MG tabletIndication s:Hyperlipidemia LDL goal <70 Take 1 tablet (40 mg total) by mouth daily. 90 tablet 1 02/19/20 Active blood-glucose,re ceiver,cont (DEXCOM G7 GRAPPLE OPERATOR) MiscIndications: Type 2 diabetes mellitus with hyperglycemia, with long-term current use of insulin by Miscellaneous route as needed (Continuous). 1 each 02/19/20 Active blood-glucose sensor (DEXCOM G7 SENSOR) DeviIndications: Type 2 diabetes mellitus with hyperglycemia, with long-term current use of insulin 1 Application by Miscellaneous route Every 10 Days. 3 each 02/19/20 Active Active Problems Problem Noted Date Diagnosed Date Type 2 diabetes mellitus wit h hyperglycemia, with long-term current use of insulin 07/05/2023 Assessment & Plan (02/18/2025 11:13 AM EDT): Uncontrolled. Hemoglobin A1c increased from 7.0 to 10.9% and she states she is taking her medications and in fact we increased the Ozempic on the last visit and unguinal increase it again from 1 to 2 mg. However I am not going to change the insulin or increase the Jardiance because quite frankly I am concerned about giving her too much medications at 1 time especially when she had such a good A1c in the past. I reviewed with her that she should be honest with me and tell me the truth. Because if she has not been taking the medications and I increased the dose of the medications going to be worse for her. But she states that she has been taking the medication consistently so I am going to have to believe that this is true and therefore I am increasing the Ozempic. She should repeat her hemoglobin A1c in 3 months. As for her other medication she should continue taking them as she is currently doing. Assessment & Plan (09/26/2024 9:41 AM EST): Improve glycemic control GMI is 7.0% again the issue here is that she forgets that she has medications. She was not taking her Jardiance at 1 point even though the medications were available to her. She gets the impression that she did not get the full 90 tablets. Which is not the case. Again she needs to be more organized. I am not making any changes presently I am not giving her any more prescription because she says she has enough Lantus and I just refill her medications last month. But I do plan to increase her Jardiance to 25 mg if she continues to have elevated glucose in the evening based on the CGM. I do not think it is beneficial to increase the Lantus further because is just not going to be absorbed. She should continue her current regimen. Assessment & Plan (08/15/2024 9:01 AM EST): Uncontrolled. Hemoglobin A1c is 7.8. Glucose levels based on CGM averaging 249 mg/dL. She did get corticosteroid injection which resulted in elevated glucose levels. I increased the Lantus to 60 units daily. I added Humalog correction scale starting at 70-100 = 2 units increasing by 2 units every 50 mg/dL. She should administer before breakfast, lunch, dinner based on the correction scale. She should continue Ozempic Ozempic is causing her to feel nauseous but she states is not that bad so she will continue it. She should continue Jardiance. I need to check renal panel to see her creatinine. If the creatinine is good then she can resume metformin. Assessment & Plan (04/07/2024 1:27 PM EDT): Based on CGM and hemoglobin A1c of 6.4% she is controlled this is despite stopping metformin and stopping Lantus. She continues on Ozempic and Jardiance which are excellent medications. She should repeat hemoglobin A1c in 3 months time. Assessment & Plan (10/09/2023 1:18 PM EST): Controlled. Hemoglobin A1c 6.6% on current regimen so not to make any changes. She should continue Ozempic, Jardiance and metformin. Assessment & Plan (08/14/2023 10:48 AM EST): Uncontrolled. Hemoglobin A1c 9.2%. 1 other issues I face that is difficult is that she is eating in the morning so I do not know what her true fasting glucose levels are. Therefore I cannot increase the Lantus any further because she may have good fasting glucose I just do not know it. She has postprandial hyperglycemia and increasing Ozempic to 2 mg is not a good choice right now because it is just not available at the pharmacy. She is already on the maximum dose of metformin so I will add Jardiance 10 mg. I informed her that this medication is associated with polyuria and there is the risk of yeast infection so she needs to use proper hygiene. 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 As for the freestyle lei CGM I have sent a message to my faculty i on call medical assistant to do prior authorization. She has an appointment in October and I will see her then. I also requested repeat lipid panel and urine microalbumin that she should do fasting. Assessment & Plan (07/05/2023 2:01 PM EDT): Uncontrolled based on reported hemoglobin A1c of 13%. However she has only had 4 glucose monitored so is very difficult to make an assessment as to what we should do. One of the fasting glucose is 125 mg/dL so I am uncertain if I should increase the dose of Lantus because we need more glycemic levels. She does not like sticking herself. I prescribed freestyle lei 3 and hopefully this will help with the gets approved. I am not going to make any changes. I need to obtain lab work before I proceed with management and I need more glycemic levels. I will give her a follow-up appointment in 3 months time. Hyperlipidemia LDL goal <70 07/05/2023 Assessment & Plan (02/18/2025 11:13 AM EDT): Uncontrolled LDL still elevated at 120 but she states her well shooter added ezetimibe. I told her that she needs to take a picture of this and make sure that this is the correct medication because she could not remember the medication precisely. She should repeat a lipid panel fasting prior to the follow-up visit. Assessment & Plan (09/26/2024 9:40 AM EST): Uncontrolled. LDL was 200. But she was not taking her rosuvastatin. She states that she just finished her last bottle but her pharmacy is telling her she is not due for repeat refill. Furthermore they said that they do not have a prescription which is out because I just sent a 90-day with 1 refill just last month. So I am sending the prescription again. I am not going to make any changes to her rosuvastatin because I think the LDL was elevated just because she has not been consistently taking the medication. She really gets herself confused with her medications. She needs to get organized and have a better system. Assessment & Plan (08/15/2024 9:00 AM EST): Uncontrolled her last level was 108 mg/dL and she does not know if she is taking the rosuvastatin or not. It has been prescribed. She is going to get a lipid panel today she states she is fasting. Assessment & Plan (04/07/2024 1:26 PM EDT): Uncontrolled. LDL 108 mg/dL but this may be elevated because she did not take her medications for 1 week prior to the lab work. She will continue rosuvastatin 40 mg repeat lipid panel in 3 months. If LDL is above 70 I will prescribe ezetimibe 10 mg. Assessment & Plan (10/09/2023 1:16 PM EST): Uncontrolled. LDL 80 mg/dL but she has coronary artery disease her LDL needs to be less than 70. She has been compliant with atorvastatin 80. I will stop atorvastatin prescribe Crestor 40. She should repeat lipid panel prior to the follow-up visit. Assessment & Plan (08/14/2023 10:49 AM EST): She is taking atorvastatin. I do not have the lipid panel I requested this on the last visit but it was not done. I requested again today. Assessment & Plan (07/05/2023 1:56 PM EDT): I do not have a lipid panel she is on atorvastatin 80 mg LDL should be less than 70 mg. We will check a lipid panel. Encounters Date Type Department Care Team Description 02/18/2025 10:30 AM EDT Office Visit [facility] [address] [place] [id number] Bertrand Mcdonnell DO Type 2 diabetes mellitus with hyperglycemia, with long-term current use of insulin (Primary Dx); Hyperlipidemia LDL goal <70 02/18/2025 Telephone [facility] [address] [place] [address] [place] [phone] Greta Swartz MA Medication Prior Authorization 02/18/2025 Telephone [facility] [address] [place] [address] [place] [phone] Greta Swartz MA Medication Prior Authorization from Last 3 Months Family History Medical History Relation Comments Coronary artery disease Father Diabetes Father Hyperlipidemia Father Hypertension Father Cancer Mother Diabetes Mother Relation Status Comments Father Alive Mother Social History Tobacco Use Types Packs/Day Years Used Date Smoking Tobacco: Never Smokeless Tobacco: Never Tobacco Cessation:Counseling Given: Not Answered Alcohol Use Standard Drinks/Week Comments Never 0 (1 standard drink = 0.6 oz pur e alcohol) Education Answer Date Recorded Are you interested in more education? Not on daniel e 04/02/2023 Are you concerned about learning? Not on file 04/02/2023 No 04/02/2023 No 04/02/2023 Digital Access Answer Date Recorded No 04/02/2023 No 04/02/2023 Reliable internet access at home? Not on file 04/02/2023 Device with a working camera? Not on file Comments Unknown Sex and Gender Information Value Date Recorded Sex Assigned at Not on file Legal Sex Female 9:42 AM EDT Gender Identity Not on file Sexual Orientation Not on file Last Filed Vital Signs Vital Sign Reading Time Taken Comments Blood Pressure 115/65 02/18/2025 10:49 AM EDT Pulse 71 02/18/2025 10:49 AM EDT Temperature - - Respiratory Rate - - Oxygen Saturation 96% 02/18/2025 10:49 AM EDT Inhaled Oxygen Concentration - - Weight 90.7 kg (200 lb) 02/18/2025 10:49 AM EDT Height 152.4 cm (5') 09/26/2024 8:59 AM EST Body Mass Index 39.06 09/26/2024 8:59 AM EST Plan of Treatment Upcoming Encounters Date Type Department Care Team (Late st Contact Info) Description 06/03/2025 10:50 AM EDT Office Visit [facility] [address] [place] [address] [place] [address] Bertrand Mcdonnell, [address] [place] [id number] Health Maintenance Due Date Last Done Comments Adult Td,Tdap Booster 1973 DEPRESSION SCREENING 1985 HEPATITIS C SCREENING 11/14/1991 HIV ONE-TIME SCREENING (18-6 5 YEARS) 11/14/1991 PNEUMOCOCCAL VACCINES (50+ years) (1 of 2 - PCV) 1992 MAMMOGRAM 2013 COLOGUARD 2018 COLONOSCOPY 2018 COLORECTAL CANCER SCREENING 2018 FIT TEST 2018 FOBT 2018 SIGMOIDOSCOPY 2018 VIRTUAL COLONOSCOPY 2018 DIABETIC EYE EXAM 07/05/2023 ZOSTER VACCINES (1 of 2) 11/14/2023 PAP SMEAR 05/04/2024 05/04/2021 HEMOGLOBIN A1C 02/13/2025 08/15/2024, 04/05/2024 INFLUENZA VACCINE (#1) 2025 COVID-19 VACCINE (1 - 2023-2 5 season) 2025 POTASSIUM LEVEL 08/15/2025 08/15/2024 URINE MICROALBUMIN/CREATININ E RATIO 08/15/2025 08/15/2024 BLOOD PRESSURE 08/20/2025 02/18/2025 SMOKING STATUS SCREENING (On ce After 26 Yrs) Completed 09/26/2024 HEPATITIS A VACCINES Aged Out No long er eligible based on patient's age to complete this topic HIB VACCINES Aged Out No longer eligi ble based on patient's age to complete this topic MENINGOCOCCAL VACCINES (ACWY) Aged Out No longer eligible based on patient's age to complete this topic MENINGOCOCCAL VACCINES (B) Aged Out N o longer eligible based on patient's age to complete this topic Medical Devices Not on file Procedures Procedure Name Priority Date/Time Associated Diagnosis Comments MICROALBUMIN/CREATIN INE RATIO, RANDOM URINE Routine 08/15/2024 10:01 AM EST Type 2 diabetes mellitus with hyperglycemia, with long-term current use of insulin RENAL PANEL Routine 08/15/2024 9:45 AM EST Type 2 diabetes mellitus with hyperglycemia, with long-term current use of insulin POCT HEMOGLOBIN A1C Routine 08/15/2024 9 :05 AM EST Type 2 diabetes mellitus with hyperglycemia, with long-term current use of insulin from Last 3 Months or Most Recently Relevant to Health Maintenance Results * (ABNORMAL) Microalbumin/creatinine ratio, random urine (08/15/2024 10:01 AM EST) URINE MICROALBUMIN 5.2(H) 0 - 2.3 mg/dL [facility] URINE CREATININE 71 mg/dL [facility] MICROALB/CRE RATIO 73.2(H) 0 - 20 mg/g Cre [facility] Urine (Urine) 08/15/2024 10: 01 AM EST 08/15/2024 10:03 AM EST Bertrand Mcdonnell DO URINE ORDERABLES Final Result Performing Organization Address City/State/[facility] Co de Phone Number [address] [address] * (ABNORMAL) Renal panel (08/15/2024 9:45 AM EST) SODIUM 139 133 - 146 mmol/L [facility] POTASSIUM 4.1 3.3 - 5.1 mmol/L [facility] CHLORIDE 104 96 - 108 mmol/L [facility] CO2 27 21 - 35 mmol/L [facility] GLUCOSE 162(H) 70 - 99 mg/dL [facility] BUN 15 6 - 19 mg/dL [facility] CREATININE 0.40(L) 0.5 - 1.5 mg/dL [facility] CALCIUM 9.6 8.4 - 10.3 mg/dL [facility] PHOSPHORUS 3.1 2.7 - 4.5 mg/dL [facility] ALBUMIN 3.9 3.9 - 4.8 g/dL [facility] EGFR >120 >59 mL/min/1.7 3m2 [facility] Comment:Estimated glomerular filtration rate calculated using the CKD-EPI refit equation. ANION GAP 12 10 - 20 mmol/L [facility] Blood 08/15/2024 9:45 AM EST 08/15/2024 9:49 AM EST us Bertrand Mcdonnell DO LAB BLOOD ORDERABLES Final Resul t [facility] [address] [place] [address] * (ABNORMAL) POCT Hemoglobin A1c (08/15/2024 9:05 AM EST) Hemoglobin A1c 7.8(A) 4.2 - 5.8 % Other 08/15/2024 9:05 AM EST Bertrand Mcdonnell DO POINT OF CARE TEST ORDERABLES Fi nal Result from Last 3 Months or Most Recently Relevant to Health Maintenance Insurance CARE MEDICARE REPLACEMENT [place] [id number] CARE MEDICARE REPLACEMENT [place] [id number] MEDICARE REPLACEMENT MEDICARE REPLACEMENT MEDICARE REPLACEMENT [facility] ONE CARE MEDICARE REPLACEMENT JOSELILY [id number] Care Teams Livestock Buyer Relationship Specialty Start Date End Date Maggie Guerrero MD [address] [place] [address] [address] [place] [address] PCP - General Internal Medicine 03/21/23 Additional Source Comments The information contained in this document represents components of the legal health record. It is not the complete legal health record.[facility]
--- OUTSIDE RECORDS SUMMARY | 2025-05-20 18:34 | XMS_ITS | Encounter Summary ---
Author Organization [facility] Address [address] [place] [address] Encounters * CPT with [facility] at [facility] on 2025-05-05 { reasonForRequest : Pt reporting coming home from an international cruise and is concerned over exposure>wants to rule out COVID-19 , patientReports : , denies :[ Increased work of breathing/labored with or without fever , Unable to speak in full sentences without distress , Discoloration of skin -cyanosis , Needs to sleep sitting up, can t catch breath , Shortness of breath in setting of confusion , Cough, fever greater than 2 days , Lower extremity swelling , History of asthma, increased use of inhaler , COPD , Sputum increase , Cough , Shortness of breath with exertion , Pain with inspiration ], chiefComplaints": Breathing Problems , pmh : Diabetes Mellitus Type 2, Multiple Sclerosis, Myocardial Infarction, Hypertension , allergies : Cipro, Penicillins ,&quo t;otherAllergies :null, painAssessment : , visitOutcome : & quot;, additionalComments : 49 y.o female complains of Breathing Problems\n\nPt was recently on a cruise. \nShe has a Headache, that has not gone away. She came home yesterday. \nShe does not have a cough or fever\nShe did have some chills and body aches, yesterday.\nShe denies any shortness of breath. She has taken asa with no change. \nShe does have DM2, blood sugar last night 147, normal for her \nI provided information on the mobile health provider response time and advised the patient and/or caregiver to monitor reported signs and symptoms. I discussed the warning signs ofwhen to seek emergency care. } Pt is sitting at the table upon arrival. Pt is pink/warm/dry and not in any immediate respiratory distress. Pt states she was just on a cruise and wanted to make sure she didn???t have Covid. Pt denies any CP, SOB, dizziness and/or nausea. Vitals as noted. Bilateral breath sounds normal. Pt Covid test was negative. [facility] contacted and call was cleared. ORAL_MEDICATION, POC_FLU_STREP, COVID_TEST Written by Medical [facility]ED on 2025-05-05
--- OUTSIDE RECORDS SUMMARY | 2025-05-20 18:34 | XMS_ITS | Encounter Summary ---
Author Organization [facility] Address [address] [place] [address] Encounters * CPT with Guillaume Reyes at [facility] on 2025-02-23 { reasonForRequest : Patient feels like vomiting, wants her blood count checked. ", patientReports : Nausea with or without vomiting , denies :[ Sharp focal or diffuse abdominal pain , Vomiting blood/coffee ground material ,&quot ;Bloating, jaundice new onset with pain , Nausea and vomiting greater than 2 hours with abdominal pain , Tearing pain that radiates to back , Food Impaction , Vague abdominal pain greater than 24 hours , Constipation , Diarrhea no blood in stool , Inability to tolerate foods, fluids or daily medications ], chiefComplaints : Nausea / Vomiting , pmh : Diabetes Mellitus Type 2, Multiple Sclerosis, Myocardial Infarction, Hypertension , allergies : Cipro, Penicillins , otherAllergies :null, painAssessment : , visitOutcome&qu ot;: , additionalComments : 49 y.o female complains of Nausea / Vomiting\n\nPT has been going through menopause and has had increase bleeding. \Dagmar has been in touch with her OBGYN and was told to have her go to the ER for h/h. \nSraji has been having nausea since last night , no vomiting. \nShe denies any dizziness but has weakness.\nShe has DM2, her blood sugar has [id number] .\nShe denies any abd pain. She has been drinking and eating small amounts . \Dagmar does straight cath herself due to the MS \nI provided information on the mobile health provider response time and advised the patient and/or caregiver to monitor reported signs and symptoms. I discussed the warning signs of when to seek emergency care. } Encountered patient seated upright and conscious with family present. Patient reports since October of this year she has been undergoing menopause and has been experiencing heavy and prolonged vaginal bleeding. Patient reports she has been treated with progesterone, but stopped at approximately two days ago, on her own, has noted the significant decrease in blood flow. Patient reports her only physical symptom at this time is nausea but was encouraged by her QUALITY ASSURANCE COACH to have her ???blood levels?? assessed whenever she felt ill. Skin warm, dry and of appropriate color for ethnicity. Head and neck, free of trauma and edema. ???JVD. Breath sounds present clear and equal bilaterally. Abdomen is soft, non-tender and non-distended. Extremities are free of trauma and edema. [facility] contacted: orders for BMP performed, values uploaded via [facility]. 4 mg of ODT Zofran administered after medication ???rights??? were reconciled with patient. [facility] states they will write a prescription for further treatment to a pharmacy of patient???s choice. [facility] states that if patient???s nauseacontinues to persist, they should consider being seen by their primary care physician to reassess tr eatment regimen. Patient verbalizes understanding of the plan and states she is comfortable remaining home today. EKG, POC_BLOODWORK, URINE_DIPSTICK Written by Guillaume Reyes on 2025-02-23
--- OUTSIDE RECORDS SUMMARY | 2025-05-20 18:34 | XMS_ITS | Continuity of Care Document ---
Author Name [facility] Address [address] [place] [address] Organization Unknown Address [address] [place] [address] Medications No known medications Problems No known problems
== END 2025-05-20 15:51 | disposition home or self-care (01) ==
LOC: HO.HUSH 15:02
PROVIDERS: PCP Internal Medicine; Visit Provider Nurse Practitioner Family
DX: N31.9 Neuromuscular dysfunction of bladder, unspecified (principal); N39.0 Urinary tract infection, site not specified; Z13.9 Encounter for screening, unspecified
CPT/HCPCS: 99213; G2211

== ENCOUNTER 2025-05-20 15:02 | Outpatient (REF) | payer OTHER, SELFPAY | END 2025-05-20 15:03 | disposition home or self-care (01) | LOC: HO.LAB 15:02 | PROVIDERS: PCP Internal Medicine; Visit Provider Nurse Practitioner Family | DX: N39.0 Urinary tract infection, site not specified (principal); N31.9 Neuromuscular dysfunction of bladder, unspecified; Z13.89 Encounter for screening for other disorder | CPT/HCPCS: 51798; 81003; 88112; 99212 ==

== ENCOUNTER 2025-06-26 13:12 | Outpatient (REF) | payer OTHER, SELFPAY ==
--- OUTSIDE RECORDS SUMMARY | 2025-06-26 15:13 | XMS_ITS | Clinical Summary ---
Author Organization [facility] Address [address] [place] [address] Care Team Providers Care Film Sorter Name Role Phone Maggie Guerrero MD Primary Care Provider [phone] Allergies Active Allergy Reactions Criticality Noted Date [...] 5 03/11/2024 Active ergocalciferol (VITAMIN D2) capsule 97258 units Take 1 capsule (50,000 Units total) [...] age to complete this topic Care Teams Film Sorter Relationship Specialty Start Date End Date Maggie Guerrero MD [address] [place] [phone] PCP - General Internal Medicine 04/06/20
--- OUTSIDE RECORDS SUMMARY | 2025-06-26 15:13 | XMS_ITS | Clinical Summary ---
Author Organization [facility] Address [address] [place], [place] [id number] Phone Care Team Providers Care Regulatory Law Specialist Name Role Phone Maggie Guerrero MD Primary Care Provider [phone] Allergies Active Allergy Reactions Criticality Noted Date Comments Ciprofloxacin Hives 07/05/2023 Penicillins Hives 12/19/2013 Other reaction(s): UNKNOWN Medications spironolactone (ALDACTONE) 25 MG tablet Take 1 tablet by mouth every morning. 023 Active polyethylene glycol (MIRALAX) 17 gram/dose powder 2 (two) times a week. 023 Active metoprolol tartrate (LOPRESSOR) 50 MG tablet Take 25 mg by mouth 2 (two) times a day. Active FEROSUL 325 mg (65 mg iron) tablet Take 1 tablet by mouth 2 (two) times a day. Active cholecalciferol (VITAMIN D3) 5,000 unit capsule Take 125 mcg by mouth daily. 022 Active baclofen (LIORESAL) 10 MG tablet Take 2 tablets by mouth 3 (three) times a day. Active aspirin 81 MG EC tablet Take 1 tablet by mouth daily. Active amitriptyline (ELAVIL) 50 MG tablet Take 1 tablet by mouth daily. Active freestyle lei 3 reader One unspecified by miscellaneous 1 each 023 Active CO Q-10 200 mg capsule Take 1 capsule by mouth every morning. 024 Active potassium chloride (KLOR-CON) 10 MEQ ER tablet Take 10 mEq by mouth every other day. 07/16/2 024 Active ONETOUCH DELICA PLUS LANCET 33 gauge Misc Inject 1 each into the skin daily. Active dalfampridine (AMPYRA) 10 mg Tb12 ER tablet Take 10 mg by mouth 2 (two) times a day. Active ONETOUCH VERIO Strp strips 1 each daily. Active ezetimibe (ZETIA) 10 mg tablet Take 1 tablet by mouth every morning. Active blood-glucose sensor (DEXCOM G7 SENSOR) DeviIndications :Type 2 diabetes mellitus with hyperglycemia, with long-term current use of insulin 1 Application by Miscellaneous route Every 10 Days. Active blood-glucose,r eceiver,cont (DEXCOM G7 RESEARCH SUPPORT SPECIALIST) MiscIndications :Type 2 diabetes mellitus with hyperglycemia, with long-term current use of insulin by Miscellaneous route as needed (Continuous). Active empagliflozin (JARDIANCE) 25 mg tabletIndicatio ns:Type 2 diabetes mellitus with hyperglycemia, with long-term current use of insulin Take 1 tablet (25 mg total) by mouth daily. 90 tablet 1 Active insulin lispro (ADMELOG, HUMALOG) 100 unit/mL injection penIndications: Type 2 diabetes mellitus with hyperglycemia, with long-term current use of insulin Use 3 times a day with meals based on the correction scale below. 70-100 =2 unit 101-150 =4 units 151-200 = 6 units 201-250 =8 units 251-300 =10 units 301-350 =12 units 351-400 =14 units greater than 400 =16 units 15 mL 1 Active semaglutide (OZEMPIC) 2 mg/dose (8 mg/3 mL) subcutaneous injection penIndications: Type 2 diabetes mellitus with hyperglycemia, with long-term current use of insulin Inject 2 mg under the skin every 7 days. 9 mL 1 Active rosuvastatin (CRESTOR) 40 MG tabletIndicatio ns:Hyperlipidem ia LDL goal <70 Take 1 tablet (40 mg total) by mouth daily. 90 tablet 1 025 Active insulin glargine 100 unit/mL (3 mL) InPn injection penIndications: Type 2 diabetes mellitus with hyperglycemia, with long-term current use of insulin Inject 60 Units under the skin nightly at bedtime. 60 mL 1 025 Active gabapentin (NEURONTIN) 600 MG tablet Take 1 tablet by mouth 3 (three) times a day. 023 2024 Discontinued blood-glucose sensor (FREESTYLE LEI 3 SENSOR) DeviIndications :Type 2 diabetes mellitus with hyperglycemia, with long-term current use of insulin 1 Application by Miscellaneous route 4 (four) times a day. 2 each 11 023 2024 Discontinued insulin lispro (ADMELOG, HUMALOG) 100 unit/mL injection penIndications: Type 2 diabetes mellitus with hyperglycemia, with long-term current use of insulin Use 3 times a day with meals based on the correction scale below. 70-100 =2 unit 101-150 =4 units 151-200 = 6 units 201-250 =8 units 251-300 =10 units 301-350 =12 units 351-400 =14 units greater than 400 =16 units 15 mL 1 024 2024 Discontinued(R eorder) semaglutide (OZEMPIC) 2 mg/dose (8 mg/3 mL) subcutaneous injection penIndications: Type 2 diabetes mellitus with hyperglycemia, with long-term current use of insulin Inject 2 mg under the skin every 7 days. 9 mL 1 025 2024 Discontinued(R eorder) insulin glargine 100 unit/mL (3 mL) InPn injection penIndications: Type 2 diabetes mellitus with hyperglycemia, with long-term current use of insulin Inject 60 Units under the skin nightly at bedtime. 60 mL 1 025 2024 Discontinued(R eorder) empagliflozin (JARDIANCE) 10 mg tabletIndicatio ns:Type 2 diabetes mellitus with hyperglycemia, with long-term current use of insulin TAKE 1 TABLET(10 MG) BY MOUTH DAILY 90 tablet 1 025 2024 Discontinued rosuvastatin (CRESTOR) 40 MG tabletIndicatio ns:Hyperlipidem ia LDL goal <70 Take 1 tablet (40 mg total) by mouth daily. 90 tablet 1 025 2024 Discontinued(R eorder) blood-glucose,r eceiver,cont (DEXCOM G7 RESEARCH SUPPORT SPECIALIST) MiscIndications :Type 2 diabetes mellitus with hyperglycemia, with long-term current use of insulin by Miscellaneous route as needed (Continuous). 1 each 025 2024 Discontinued blood-glucose sensor (DEXCOM G7 SENSOR) DeviIndications :Type 2 diabetes mellitus with hyperglycemia, with long-term current use of insulin 1 Application by Miscellaneous route Every 10 Days. 3 each 11 025 2024 Discontinued Active Problems Problem Noted Date Diagnosed Date Type 2 diabetes mellitus wit h hyperglycemia, with long-term current use of insulin 07/05/2023 Assessment & Plan (06/04/2025 8:50 AM EDT): Uncontrolled. Hemoglobin A1c 7.9%. She is using Lantus 60 units the lispro correction scale Ozempic 2 mg and A1c still elevated will increase Jardiance from 10 to 25 mg. She should repeat hemoglobin A1c prior to the follow-up visit in 3 months. Assessment & Plan (02/18/2025 11:13 AM EDT): [...] I have sent a message to my medical record specialist to do prior authorization. She has an [...] LDL goal <70 07/05/2023 Assessment & Plan (06/04/2025 8:48 AM EDT): Uncontrolled based on last lipid panel LDL 120 she is on rosuvastatin 40 and ezetimibe 10 mg she is going to do lipid panel this morning. Assessment & Plan (02/18/2025 11:13 AM EDT): Uncontrolled LDL still elevated at 120 but she states her event organizer added ezetimibe. I told her that she [...] Encounters Date Type Department Care Team Description 06/04/2025 9:04 AM EDT - 06/04/2025 11:59 PM EDT Hospital Encounter [facility] [address] [place] [id number] Bertrand Mcdonnell, DO Discharge Disposition: Home or Self Care 06/04/2025 8:30 AM EDT Office Visit [facility] [address] [place] [address] Bertrand Mcdonnell, Type 2 diabetes mellitus with hyperglycemia, with long-term current use of insulin (Primary Dx); Hyperlipidemia LDL goal <70 06/03/2025 Telephone [facility] [address] [place] [address] Bertrand Mcdonnell DO same day Can 06/01/2025 Telephone [facility] [address] [place] [address] [facility] from Last 3 Months Family History Medical [...] Sign Reading Time Taken Comments Blood Pressure 110/72 06/04/2025 8:16 AM EDT Pulse 88 06/04/2025 8:16 AM EDT Temperature - - Respiratory Rate - - Oxygen Saturation 96% 02/18/2025 10:49 AM EDT Inhaled Oxygen Concentration - - Weight 86.6 kg (191 lb) 06/04/2025 8:16 AM EDT Height 152.4 cm (5') 06/04/2025 8:16 AM EDT Body Mass Index 37.3 06/04/2025 8:16 AM EDT Plan of Treatment Upcoming Encounters Date Type Department Care Team (Late st Contact Info) Description 10/09/2025 8:30 AM EST Office Visit [facility] [address] [place] [address] [phone] Bertrand Mcdonnell DO [address] [place] [address] Health Maintenance Due Date Last Done Comments Adult Td,Tdap Booster 1973 DEPRESSION SCREENING 1985 HEPATITIS C SCREENING 11/14/1991 HIV ONE-TIME SCREENING (18-6 5 YEARS) 11/14/1991 PNEUMOCOCCAL VACCINES (50+ years) (1 of 2 - PCV) 1992 COLOGUARD 2018 COLONOSCOPY 2018 COLORECTAL CANCER SCREENING 2018 FIT TEST 2018 FOBT 2018 SIGMOIDOSCOPY 2018 VIRTUAL COLONOSCOPY 2018 DIABETIC EYE EXAM 07/05/2023 RSV VACCINE (1 - Risk 50-74 years 1-dose series) 11/14/2023 ZOSTER VACCINES (1 of 2) 11/14/2023 PAP SMEAR 05/04/2024 05/04/2021 INFLUENZA VACCINE (#1) 2025 COVID-19 VACCINE ( - 2024-2 6 season) 2025 POTASSIUM LEVEL 08/15/2025 08/15/2024 BLOOD PRESSURE 12/03/2025 06/04/2025 HEMOGLOBIN A1C 12/03/2025 06/04/2025, 08/15/2024, 04/05/2024 URINE MICROALBUMIN/CREATININ E RATIO 06/04/2026 06/04/2025, 08/15/2024 MAMMOGRAM 03/17/2027 03/17/2025, 03/17/2025 SMOKING STATUS SCREENING (On ce After 26 [...] Comments MICROALBUMIN/CREATIN INE RATIO, RANDOM URINE Routine 06/04/2025 9:32 AM EDT Type 2 diabetes mellitus with hyperglycemia, with long-term current use of insulin LIPID PANEL Routine 06/04/2025 9:18 AM EDT Type 2 diabetes mellitus with hyperglycemia, with long-term current use of insulin Hyperlipidemia LDL goal <70 POCT HEMOGLOBIN A1C Routine 06/04/2025 8 :50 AM EDT Type 2 diabetes mellitus with hyperglycemia, with long-term current use of insulin Hyperlipidemia LDL goal <70 RENAL PANEL Routine 08/15/2024 9:45 AM EST Type 2 diabetes mellitus with hyperglycemia, with long-term current use of insulin from Last 3 Months or Most Recently Relevant to Health Maintenance Results * Microalbumin/creatinine ratio, random urine (06/04/2025 9:32 AM EDT) URINE MICROALBUMIN <1.2 0 - 2.3 mg/dL [facility] URINE CREATININE 53 mg/dL URGENT CARE TECHNICIAN [facility] MICROALB/CRE RATIO NOT CALCULATED 0 - 20 mg/g Cre [facility] Comment:due to Microalbumin <1.2 Urine (Urine) 06/04/2025 9:3 2 AM EDT 06/04/2025 9:34 AM EDT Bertrand Mcdonnell DO URINE ORDERABLES Final Result Performing Organization Address City/[facility]/ZIP Co de Phone Number [address] [phone] * (ABNORMAL) Lipid panel (06/04/2025 9:18 AM EDT) HDL 60 mg/dL [facility] Comment: Interpretation <40 mg/dL: Low HDL cholesterol (major risk factor for CHD) Greater than or equal to 60 mg/dL: High HDL cholesterol ( negative risk factor for CHD) HDL - cholesterol is affected by a number of factors, e.g. smoking, excerise, hormones, sex and age. CHOLESTEROL 131 0 - 240 mg/dL [facility] TRIGLYCERIDES 58 30 - 160 mg/dL [facility] LDL 59 50 - 129 mg/dL [facility] Comment: LDL levels in terms of risk for coronary heart disease: <100 mg/dL: Optimal 100-129 mg/dL: Near or above optimal 130-159 mg/dL: Borderline high 160-189 mg/dL: High >190 mg/dL: Very High CARDIAC RISK RATIO 2.2(L) 3.3 - 4.4 C [facility] Blood 06/04/2025 9:18 AM EDT 06/04/2025 9:21 AM EDT Bertrand Mcdonnell DO LAB BLOOD ORDERABLES Final Resul t Performing Organization Address City/[facility]/ZIP Co de Phone Number [address] [address] * (ABNORMAL) POCT Hemoglobin A1c (06/04/2025 8:50 AM EDT) Hemoglobin A1c 7.9(A) 4.2 - 5.6 % Other 06/04/2025 8:50 AM EDT Bertrand Mcdonnell DO POINT OF CARE TEST ORDERABLES Fi nal Result * (ABNORMAL) Renal panel (08/15/2024 9:45 AM EST) SODIUM 139 133 - 146 mmol/L [facility] POTASSIUM 4.1 3.3 - 5.1 mmol/L [facility] CHLORIDE 104 96 - 108 mmol/L [facility] CO2 27 21 - 35 mmol/L [facility] GLUCOSE 162(H) 70 - 99 mg/dL [facility] BUN 15 6 - 19 mg/dL [facility] CREATININE 0.40(L) 0.5 - 1.5 mg/dL [facility] CALCIUM 9.6 8.4 - 10.3 mg/dL [facility] PHOSPHORUS 3.1 2.7 - 4.5 mg/dL [facility] ALBUMIN 3.9 3.9 - 4.8 g/dL [facility] EGFR >120 >59 mL/min/1.7 3m2 [facility] Comment:Estimated glomerular filtration rate calculated using the CKD-EPI refit equation. ANION GAP 12 10 - 20 mmol/L [facility] Blood 08/15/2024 9:45 AM EST 08/15/2024 9:49 AM EST Bertrand Mcdonnell DO LAB BLOOD ORDERABLES Final Resul t Performing Organization Address City/State/[facility] Co de Phone Number [facility] [address] [place] [address] from Last 3 Months or Most Recently Relevant to Health Maintenance [place] [address] [place] [address] [employer] MEDICARE REPLACEMENT LILY GARCIA [address] CARE MEDICARE REPLACEMENT CARE MEDICARE REPLACEMENT MEDICARE REPLACEMENT CARE [place]ICARE [place] [address] [place] [address] CARE MEDICARE REPLACEMENT Care Teams Regulatory Law Specialist Relationship Specialty Start Date End Date Maggie Guerrero MD [address] [place] [phone] PCP - General Internal Medicine 03/21/23 Additional Source Comments The information contained in this document represents components of the legal health record. It is not the complete legal health record.[facility]
--- OUTSIDE RECORDS SUMMARY | 2025-06-26 15:13 | XMS_ITS | Data Portability ---
Author Organization [facility], [facility] Address [address] [place] [id number] Care Team Providers Care Tie Layer Name Role Phone PHYSICIAN MIKEY DE LOS SANTOS Primary Care Provider HIM CCA OTHER Assessment Encounter Date Assessment Date Assessment LastModified by Organization Details LastModified Time 10/28/2024 10/28/2024 service called for heavy vaginal bleeding found 48 miguel with hx T2DM MS CAD prior menorrhagia reportedly requiring provera c/o 1.5 wk heavy menstrual bleeding requesting check H/H denies lightheadedness, SOB VSS H/H 13.6/40 BMP wnl #Menorrhagia currently stable 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 We discussed the diagnostic uncertainty of home [...] She will be transported by EMS to [facility]. Report was given to Timo in the ED. Not available 12/11/2024 19:14:03 05/05/2025 05/05/2025 I provided real -time medical direction via phone for this encounter, and was available for additional phone based assistance as needed. I have reviewed and agree with the Assessment and Plan as documented by the Rough Rounder Machine. We discussed the diagnostic uncertainty of home visits and the risk associated with this. In this case the patient and I felt this to be an acceptable and reasonable amount of risk given the benefit of avoiding an ED visit. The patient given the opportunity to ask questions. 49yo female with a pmhx including but not limited to Diabetes Mellitus Type 2, Multiple Sclerosis, Myocardial Infarction, Hypertension requesting Covid test. She reports she returned back from a cruise and is prone to catching viruses so wanted to be checked. She denies any symptoms. No fevers, headache, cough, SOB. Covid (-). Reviewed she can request 4 free tests online at [facility]. Reviewed if she develops any symptoms she can call back for visit. Advised if develops CP/severe SOB/turning blue/uncontrolle d n/v/d or black/bloody emesis or stool/ AMS/ syncope/ hi fever unresponsive to APAP to call 911- verbalized understanding of instruction [email or web address] Not available 05/05/2025 18:15:38 Plan of Treatment Reminders Order Date Submit Date Provider Last Modified By Organization Details Last Modified Time Details Appointments None recorded. Lab rapid SARS CoV 2 Ag, QL IA, respirator y specimen 2024 025 JUAQUIN [facility], [address] [place] [address], [phone] 18:49:06 hemoglobin + hematocrit , blood 2024 025 [email or web address] [facility], [address] [place] [address], [id number] 17:51:15 BMP, serum or plasma [address] [facility], [address] [place] [address], [phone] 17:51:15 rapid SARS CoV 2 Ag, QL IA, respirator y specimen 2024 025 [facility], [address] [place] [address], [phone] 21:47:40 rapid flu (A+B) 2024 025 [facility], [address] [place] [address], [phone] 21:47:40 BMP, serum or plasma 2024 025 [facility], [address] [place] [address], [phone] 21:04:01 hemoglobin + hematocrit , blood 2024 [facility], [address] [place] [address], [phone] 21:04:27 Referral None recorded. Procedures None recorded. Surgeries None recorded. Imaging electrocar diogram 2024 025 [facility], [address] [place] [address], [phone] 18:11:01 Medication Orders ondansetro n 4 mg disintegra ting tablet 2024 025 [employer] [facility], [address], [place], [phone], 17:33:09 ondansetro n 4 mg disintegra ting tablet 2024 025 [email or web address], [address], [place], [phone], 17:51:10 Patient TargetsNo targets recorded. Patient InstructionsNo instructions recorded. Reason for Referral None Reported. Results Created Date Observation Date Name Description Value Unit Range Abnormal Flag Note LastModifiedBy Organization Detail LastModifiedTime 02/24/2002/23/2025 BMP, serum or plasm a CRE 0.4 Not Available [address], [phone] 02/23/2025 17:50:46 02/24/20 25 02/23/2025 BMP, serum or plasm a GLU 214 Not Available [address], [address] [place] [address] 02/23/2025 17:50:46 02/24/20 25 02/23/2025 BMP, serum or plasm a K+ 3.4 Not Available [address], [address] [place] [address] 02/23/2025 17:50:46 02/24/20 25 02/23/2025 BMP, serum or plasm a Na+ 140 Not Available [address], [address] [place] [address] 02/23/2025 17:50:46 02/24/20 25 02/23/2025 hemog lobin + hemat ocrit , blood Hemoglobin 13.2 Not Available [address], [address] [place] [address] 02/23/2025 17:50:21 12/12/1912/11/2024 elect jordan campbellgr am No observ ation record ed. dewayne [address], [address] [place] [address] 12/11/2024 20:05:08 Result Notes None recorded. Medical Equipment None Reported. Allergies Allergen ID Allergen Name Allergen Category Reaction Reaction Severity Criticality Documentation Date Start Date Code Code System Note Provider Name and Address Organization Details Recorded Time 69611 Cipro medicatio n Not available Not available Not available 09/06/202484140 3 RxNorm Not Available [facility] - production 13:54:25 53536 Product containin g penicilli n (product) medicatio n Not available Not available Not available 09/06/2024 24633 8001 SNOMED Not Available [facility] - production [...] mg disintegrati ng tablet Place 1 tablet by translingua l route. 2024 active Not Available Not Available Not Avai lable ezetimibe 10 mg tablet TAKE 1 TABLET BY MOUTH DAILY active Not Available Not Available Not Available rosuvastatin 40 mg tablet TAKE 1 TABLET BY MOUTH DAILY active Not Available Not Available Not Available metoprolol tartrate 25 mg tablet TAKE [...] active Not Available Not Available Not Available Vitamin D3 50 mcg (2,000 unit) tablet TAKE 1 TABLET BY MOUTH ONCE DAILY active Not Available Not Available No t Available dalfampridin e ER 10 mg tablet,exten [...] Available Not Available No t Available Ozempic 2 mg/dose (8 mg/3 mL) subcutaneous pen injector INJECT 2 MG UNDER THE SKIN ONCE A WEEK active Not Available Not Available No t Available Ozempic 0.25 mg or 0.5 mg (2 mg/3 mL) subcutaneous pen injector active Not Available Not Available Not Available Vitals Date Recorded Body temperature Respiratory rate Oxygen saturation Oxygen saturation in Arterial blood by Pulse oximetry Heart rate Systolic And Diastolic Provider Name and Address Organization Details Last Updated DateTime 5 99.9 [degF] 16 /min 97 % 97 % 98 /min 153/80 mm[Hg] Not Available [employer] 5 17:49:38 Date Recorded Body temperature Respiratory rate Heart rate Oxygen saturation Oxygen saturation in Arterial blood by Pulse oximetry Body weight Body height Systolic And Diastolic Provider Name and Address Organization Details Last Updated DateTime 5 98 [degF] 14 /min 91 /min 98 % 98 % 30901.8 g 152.4 cm 129/81 mm[Hg] Not Available [employer] 20:46:36 Date Recorded Respiratory rate Heart rate Oxygen saturation Oxygen saturation in Arterial blood by Pulse oximetry Systolic And Diastolic Provider Name and Address Organization Details Last Updated DateTime 5 18 /min 90 /min 98 % 98 % 126/73 mm[Hg] Not Available [employer] 18:08:24 Date Recorded Heart rate Respiratory rate Oxygen saturation Oxygen saturation in Arterial blood by Pulse oximetry Body temperature Systolic And Diastolic Provider Name and Address Organization Details Last Updated DateTime 5 94 /min 18 /min 97 % 97 % 98.9 [degF] 118/70 mm[Hg] Not Available [employer] 5 17:31:19 Date Recorded Respiratory rate Body temperature Oxygen saturation Oxygen saturation in Arterial blood by Pulse oximetry Heart rate Systolic And Diastolic Provider Name and Address Organization Details Last Updated DateTime 5 18 /min 99.4 [degF] 96 % 96 % 97 /min 118/82 mm[Hg] Not Available [employer] 17:59:24 Social History None recorded. Functional Status None recorded. Mental Status None recorded. Family History Nothing Reported. Medical History No medical history recorded. Gynecological HistoryNo gynecological history recorded. Obstetrics History GPAL:G 0 P 0 0 0 0 Past Encounters Encounter ID Performer Location Encounter Start Date Encounter Closed Date Diagnosis/Indication Diagnosis SNOMED-CT Code Diagnosis ICD10 Code Diagnosis IMO Codes Diagnosis Note [id number] BRENDON MANLEY MD Main - [address] [phone] 09/06/2024 16:09:55 09/07/2024 23:59:58 Urinary symptoms 142258479 R39.9 Evaluation in the field was performed by my bead wire insulator colleague, as noted above, I provided real-time direction and supervisio n for this visit. The evaluation revealed a 48-year-ol d female with a history of multiple sclerosis and neurogenic bladder (self-cath eterizing 3 4 times per day), with a history [...] on for Bactrim was sent to the patient s pharmacy, and the first dose was administer ed by the paramedics .-The patient was encouraged to maintain adequate oral hydration. -Zofran 4 mg PO was administer ed, and a prescripti on for 3 days was sent to the patient s pharmacy. -A urine culture will be sent and will [...] to tolerate PO or any other concerns. [id number] Drew Vnag MD Main - [facility] [address] [place] [address] 10/28/2024 17:49:36 10/29/2024 12:11:40 Menorrhagia [id number] N92.0 [id number] BETITO PINEDA MD Main - [facility] [address] [place] [address] 12/02/2024 20:46:34 12/23/2024 16:34:01 Nasal congestion [id number] R09.81 [id number] BETITO PINEDA MD Main - [facility] [address] [place] [address] 12/11/2024 18:08:16 12/23/2024 16:42:40 Left sided chest pain [id number] R07.9 [id number] Maylin Estes MD Main-inst Medical [address] [address] 02/23/2025 17:31:17 02/23/2025 18:42:15 Nausea [id number] R11.0 [id number] 49 year old female with dysfunctio nal uterine bleeding of unclear etiology, being evaluated for nausea for the last few days. Patient reports no vomiting or diarrhea, and is tolerating PO. Of note she has been experienci ng heavy vaginal bleeding for the last month in the setting of menopause, while on progestero ne. She has recently stopped the progestero ne and is noticing an improvemen t in the bleeding, but still feeling generally nauseous. Exam notable for normal vital signs, CMP normal. Presentati on consistent with nausea of unclear etiology, in the setting of perimenopa use and dysfunctio nal uterine bleeding, hemoglobin not at transfusio n threshold, recommend zofran for symptoms, and continue outpatient FU for assisted management and work up of nausea and vaginal bleeding. I have reviewed and agree with the assessment and plan as documented by the bead wire insulator. I provided real-time medical direction for this encounter and was immediatel y available to provide additional phone-base d assistance as needed. We discussed the diagnostic uncertaint y of home visits and associated risks. We discussed the need to seek care urgently/e mergently in the setting of any new or worsening symptoms. [id number] JAKE KRISHNAMURTHY NP, S [facility] ED Medical [facility] [address] [place] [address] 05/05/2025 17:59:17 05/06/2025 14:34:17 General examination of patient [id number] Z00.00 [id number] Health Concerns Section Related Observation LastModified by Organization Detai ls LastModified Time None Recorded Concern Status LastModified by Organization Details LastModified Time None Recorded Advance Directives Directive None Recorded Payers Insurance Date Sequence Insurance Name Policy Number Policy Hawkins Covered Member ID Hawkins Member ID Guarantor Name 05/05/2025 1 [facility] - DOS ON OR AFTER 2022 - DUAL ELIGIBLE - RESIDENTIAL OPTIONS AND ONE CARE (MEDICARE REPLACEMENT/ADV ANTAGE - HMO) Poonam Vieira [id number] Poonam Vieira Notes Date Note Type Note Provider Name and Address Organization Details Recorded Time 10/28/2024 text/html CRC Nurse Triage Notes (Lynnette [...] Myocardial Infarction PMH Reviewed at 10/28/2024 - 12:02 Allergies Reviewed at 10/28/2024 - 12:02 Comments: [...] s/s and seek emergency treatment if needed. [employer] Organization Information for Fletcher Reyes [employer] Legal Name: [facility] Address: [address] [place] [address], [place] [address], Nuisance Wildlife Control Operator: Naif Soto MD CLIA No.: [id number] Rough R[employer] Machine POC Test Results from Fletcher Reyes - [facility] (17:20:01) pH: 7.44 pH units pCO2: 33.6 mmHg pO2: 49.7 mmHg Na: 143 mmol/L K: 3.8 mmol/L iCa: 1.27 mmol/L Cl: 110 mmol/L TCO2: 21.8 mEq/L Hct: 40 % Hb: 13.6 g/dL Glu: 114 mg/dL Lac: 1.21 mmol/L Cr: 0.5 mg/dL BUN: 13 mg/dL A mmol/L HCO3: 22.7 mmol/L .................... .................... .................... .................... .................... .................... .................... . Rough Rounder Machine Note From Fletcher Reyes: This 48-year-old female [...] the patient to follow up with her underwriting assistant tomorrow morning and present to the emergency department for any new or worsening severe symptoms such as severe dizziness/lightheade dness, chest pain, shortness of breath, uncontrollable bleeding, high fever, altered mental status. The patient was given the opportunity to ask questions and is agreeable to this plan. .................... .................... .................... .................... .................... .................... .................... . [facility] Consulted: Drew Vang .................... .................... .................... .................... .................... .................... .................... . Disposition: Fulfilled Drew Vang MD [address] [place] [address],[address], [place], [address], eTelemetry 10/28/2024 18:34:32 12/02/2024 text/html [facility] Nurse Triage Notes (Jakob Espinal): Reason For Request: covid test/congestion Patient Reports: Sputum increase ; Cough Denies: Increased work of breathing/labored with or without fever Unable to speak in full sentences without distress Discoloration of skin -cyanosis Needs to sleep sitting up, can t catch breath Shortness of breath in setting of confusion Cough, fever greater than 2 days History of asthma, increased use of inhaler COPD Shortness of breath with exertion Chief Complaints: Common Cold PMH: Diabetes Mellitus Type 2, Multiple Sclerosis, Myocardial Infarction PMH Reviewed at 12/02/2024 - : Allergies Reviewed at 12/02/2024: Comments: [employer] Kiln Supervisor verified the Pt.'s name//address and phone number. [...] requesting a COVID test and wellness check Rough Rounder Machine Organization Information for Bertrand Costa [employer] Legal Name: [facility] Address: [address] [place] [address], [place] [address], Nuisance Wildlife Control Operator: Naif Soto MD CLIA No.: [id number] [employer] POC Test Results from Bertrand Costa Rapid COVID antigen (20:43:35) COVID: - Rapid influenza antigen (20:43:36) Flu: - .................... .................... .................... .................... .................... .................... .................... . Rough Rounder Machine Note From Bertrand Costa: Patient alert and [...] Patient states she is satisfied with visit. [facility] recommend supportive care if if symptoms develop. Red flags And patient education discussed. Patient demonstrates understanding of care and plan. [facility] Lab Orders: rapid SARS CoV 2 Ag, QL IA, respiratory specimen: Performed rapid flu (A+B): Performed .................... .................... .................... .................... .................... .................... .................... . [facility] Consulted: Betito Pineda .................... .................... .................... .................... .................... .................... .................... . Disposition: Gaston PINEDA MD [address] [facility],[address], [place], [address], eTelemetry 12/02/2024 21:22:22 12/11/2024 text/html ROS as [facility] the [facility] Nurse Triage Notes (Lynnette German): Reason For Request: Patient has chest pain, and sharp pains near her Heart area. Patient Reports: History of Heart Attack, in the setting of active chest pain; Active Chest pain, radiates to neck jaw and or arm Denies: Diaphoretic/Sweating Describes as c rushing Sudden onset of nausea/Vomiting and shortness of breath. Shortness of Breath Unable to speak in full sentences without distress Chief Complaints: Chest Pain PMH: Diabetes Mellitus Type 2, Multiple Sclerosis, Myocardial Infarction PMH Reviewed at 12/11/2024 - :13 Allergies Reviewed at 12/11/2024:13 Comments: Patient reports chest pain that started [...] agrees to call 911 with worsening s/sx. [employer] Organization Information for Chidi Montilla [employer] Legal Name: [employer]. Address: [address] [place] [address], Nuisance Wildlife Control Operator: Rickey VALDERRAMA No.: [id number] [employer] POC Test Results from Chidi Montilla EKG (18:04:17) EKG test performed. Attachments uploaded as part of this test result can be found under Documents section. .................... .................... .................... .................... .................... .................... .................... . Rough [employer] Machine Note From Chidi Montilla: SC6 Dispatched to the address listed above for the report of a female republican with chest pain. Arrival on scene, patient [...] noted. 12 Lead EKG performed, transmitted to [facility] for remote interpretation, Computer interpretation advised sinus rhythm. [facility] consulted, advised no abnormalities with EKG but still recommends patient go to the hospital to have troponin check which patient agreed to. 911 was called for patient with [facility] enroute. remaining 243mg Aspirin PO administered as patient had 81mg of Aspirin shortly before [facility] arrival. 20 gauge IV established in left AC and secured via saline lock. [facility] 419 BLS unit arrival on scene, [facility] rode with [facility] to hospital due to being a lower level of care. Patient assisted into stretcher x3 EMT and secured x5 straps and x2 side rails in POC, secured into ambulance without incident. Patient vital signs monitored throughout transport. Patient reports that her chest pain had since subsided while transporting to hospital. [facility] report attempted to [facility] but unsuccessful. Arrival at [facility], EMS directed to D POD, patient registered and brought to D2 cary bed. Patient moved onto bed x3 EMT via draw sheet method and secured x2 side rails in POC without incident. Patient report given to receiving nurse and care was transferred. Copy of 12 lead EKG left with receiving hospital. Patient transported without incident. .................... .................... .................... .................... .................... .................... .................... . [facility] Consulted: Betito Pineda .................... .................... .................... .................... .................... .................... .................... . Disposition: Fulfilled BETITO PINEDA MD [address] [place] [address],[address], [place], [address], eTelemetry 12/12/2024 09:14:21 02/23/2025 text/html CRC Nurse Triage Notes (Shayy Rush): Reason For Request: Patient feels like vomiting, wants her blood count checked. Patient Reports: Nausea with or without vomiting Denies: Sharp focal or diffuse abdominal pain Vomiting blood/coffee ground material Bloating, jaundice new onset with pain Nausea and vomiting greater than 2 hours with abdominal pain Tearing pain that radiates to back Food Impaction Vague abdominal pain greater than 24 hours Constipation Diarrhea no blood in stool Inability to tolerate foods, fluids or daily medications Chief Complaints: Nausea / Vomiting PMH: Diabetes Mellitus Type 2, Multiple Sclerosis, Myocardial Infarction, Hypertension PMH Reviewed at 02/23/2025 15:57 Allergies Reviewed at 02/23/2025 15:57 Comments: 49 y.o female complains of Nausea / Vomiting PT has been going through menopause and has had increase bleeding. She has been in touch with her OBGYN and was told to have her go to the ER for h/h. She has been having nausea since last night , no vomiting. She denies any dizziness but has weakness. She has DM2, her blood sugar has been 168 . She denies any abd pain. She has been drinking and eating small amounts . She does straight cath herself due to the MS I provided information on the mobile health provider response time and advised the patient and/or caregiver to monitor reported signs and symptoms. I discussed the warning signs of when to seek emergency care. Rough [employer] Machine Organization Information for Edvin Quintero Business Legal Name: [employer]. Address: [address] [place] [address], Nuisance Wildlife Control Operator: Rickey Roth MD CLIA No.: [id number] [employer] Machine POC Test Results from Edvin Quintero iSTAT Chem8+ (17:42:46) Na: 140 mEq/L K: 3.4 mEq/L Cl: 105 mEq/L iCa: 1.17 mmol/L TCO2: 21 mmol/L Glu: 214 mg/dL BUN: 6 mg/dL Crea: 0.4 mg/dL Hct: 39 % Hb: 13.3 g/dL A mmol/L Cartridge Number: [id number] Attachments uploaded as part of this test result can be found under Documents section. .................... .................... .................... .................... .................... .................... .................... . [employer] Note From Edvin Quintero: Encountered patient seated upright and conscious with [...] is nausea but was encouraged by her UTILITIES AND MAINTENANCE SUPERVISOR to have her b lood levels assessed whenever she felt ill. Skin warm, dry and of appropriate color for ethnicity. Head and neck, free of trauma and edema. JVD. Breath sounds present clear and equal bilaterally. Abdomen is soft, non-tender and non-distended. Extremities are free of trauma and edema. [facility] contacted: orders for BMP performed, values uploaded via [employer]. 4 mg of ODT Zofran administered after medication r ights were reconciled with patient. [facility] states they will write a prescription for further treatment to a pharmacy of patient s choice. [facility] states that if patient s nausea continues to persist, they should consider being seen by their primary care physician to reassess treatment regimen. Patient verbalizes understanding of the plan and states she is comfortable remaining home today. [facility] Lab Orders: hemoglobin + hematocrit, blood: Performed BMP, serum or plasma: Performed [facility] Medication Orders: ondansetron 4 mg disintegrating tablet: Administered .................... .................... .................... .................... .................... .................... .................... . [facility] Consulted: Maylin Esets .................... .................... .................... .................... .................... .................... .................... . Disposition: Fulfilled Maylin Estes MD [address] [facility],[address], [place], [address], [facility] [employer] 02/23/2025 18:16:24 05/05/2025 text/html ROS as noted in the HPI CRC Nurse Triage Notes (Shayy Rush): Reason For Request: Pt reporting coming home from an international cruise and is concerned over exposure>wants to rule out COVID-19 Denies: Increased work of breathing/labored with or without fever Unable to speak in full sentences without distress Discoloration of skin -cyanosis Needs to sleep sitting up, can t catch breath Shortness of breath in setting of confusion Cough, fever greater than 2 days Lower extremity swelling History of asthma, increased use of inhaler COPD Sputum increase Cough Shortness of breath with exertion Pain with inspiration Chief Complaints: Breathing Problems PMH: Diabetes Mellitus Type 2, Multiple Sclerosis, Myocardial Infarction, Hypertension PMH Reviewed at 05/05/2025 Allergies Reviewed at 05/05/2025 Comments: 49 y.o female complains of Breathing Problems Pt was recently on a cruise. She has a Headache, that has not gone away. She came home yesterday. She does not have a cough or fever She did have some chills and body aches, yesterday. She denies any shortness of breath. She has taken asa with no change. She does have DM2, blood sugar last night 147, normal for her I provided information on the mobile health provider response time and advised the patient and/or caregiver to monitor reported signs and symptoms. I discussed the warning signs of when to seek emergency care. [employer] Organization Information for Gita Martin Business Legal Name: [employer]. Address: [address] [place] [address], Nuisance Wildlife Control Operator: Rickey Roth MD CARMELINA No.: [id number] [employer] POC Test Results from Gita Martin Blood Glucose Measurement (17:43:53) Blood Glucose: 253mg/dL Rapid COVID antigen (17:43:56) COVID: - Attachments uploaded as part of this test result can be found under Documents section. Rapid influenza antigen (17:44:00) Flu: - .................... .................... .................... .................... .................... .................... .................... . [employer] Note From Gita Martin: Pt is sitting at the table upon arrival. Pt is pink/warm/dry and not in any immediate respiratory distress. Pt states she was just on a cruise and wanted to make sure she didn t have Covid. Pt denies any CP, SOB, dizziness and/or nausea. Vitals as noted. Bilateral breath sounds normal. Pt Covid test was negative. [facility] contacted and call was cleared. .................... .................... .................... .................... .................... .................... .................... . [facility] Consulted: Jake Krishnamurthy .................... .................... .................... .................... .................... .................... .................... . Disposition: Gaston KRISHNAMURTHY NP, [address] [facility],[address], [place], [address], LEON NEAL 05/05/2025 18:16:37 OBGyn Episode No OBEpisode recorded.
--- OUTSIDE RECORDS SUMMARY | 2025-06-26 15:14 | XMS_ITS | Clinical Summary ---
Author Organization [address] [place] [address] Address [address] [place] [address] Phone Care Team Providers Care Wicker Worker Name Role Phone Maggie Guerrero MD Primary Care Provider [phone] Allergies Active Allergy Reactions Criticality Noted Date [...] every 6 (six) months. - Intravenous Active cholecalciferol (VITAMIN D-3) 50 mcg (2,000 unit) tablet Take 1 tablet (2,000 Units total) by mouth 1 (one) time each day. 90 tablet 1 10/08/19 25 Active medroxyPROGESTE Pramod (PROVERA) 10 mg tablet TAKE 2 TABLETS(20 [...] FOR MENSTRUAL PAIN 60 tablet 05/07/20 25 026 Active SUMAtriptan (IMITREX) 50 mg tablet Take [...] week. - Oral 12 each 05/08/20 25 025 Active amitriptyline (ELAVIL) 50 mg tablet TAKE 1 TABLET(50 MG) BY MOUTH AT BEDTIME 30 tablet 3 05/19/20 25 Active baclofen (LIORESAL) 10 mg tablet Take 2 tablets (20 mg total) by mouth 3 (three) times a day. TAKE 2 TABLETS BY MOUTH THREE TIMES DAILY 180 tablet 5 05/29/20 25 Active baclofen (LIORESAL) 10 mg tablet TAKE 2 TABLETS BY MOUTH THREE TIMES DAILY 180 tablet 5 11/29/19 25 025 Discontin ued(Reord er) Active Problems Problem Noted Date Diagnosed Date Class 1 obesity 06/08/2025 HTN (hypertension) 06/08/2025 Ischemic cardiomyopathy 06/08/2025 Neurogenic bladder 06/08/2025 Severe obesity ([facility] V24, [facility] V28) 2024 Osteoarthritis of right hip 12/05/2024 Coronary artery disease 07/22/2024 Heart failure with preserved ejection fraction ([facility] V24, [facility] V28) 07/22/2024 Sebaceous cyst 01/26/2023 Overview (06/08/2025): Last Assessment & Plan: Reviewed findings. No need to express, but could if it recurs. Not worrisome. She agreed. MS (multiple sclerosis) 10/10/2022 Carpal tunnel syndrome 01/19/2021 Overview (06/08/2025): Status: 'A'; Diabetes mellitus ([facility] V24, [facility] V28) 12/2019 Hyperlipidemia LDL goal <70 05/07/2020 Lumbar spinal stenosis 05/07/2020 Encounters Date Type Department Care Team Description 06/08/2025 10:45 AM EDT Office Visit [facility] [address] [place] [phone] Mona Pitts DO Abnormal uterine bleeding (Primary Dx) 06/08/2025 9:00 AM EDT Evaluation [facility] [address] [phone] Dorys Adame PT Multiple sclerosis (Primary Dx) 06/08/2025 8:00 AM EDT Treatment [facility] Occupational Therapy [address] [place] [phone] Abby Alvarenga, LAU Multiple sclerosis (Primary Dx); Gait difficulty 05/28/2025 11:00 AM EDT Evaluation [facility] Occupational Therapy [address] [phone] Leatha Orr, OT Multiple sclerosis (CMS/HCC V24, CMS/HCC V28); Gait difficulty 05/07/2025 10:00 AM EDT - 05/07/2025 11:59 PM EDT Hospital Encounter [facility] [place] Outpatient Rehabilititation - [address] [phone] Multiple sclerosis (CMS/HCC V24, CMS/HCC V28) (Primary Dx); Encounter for therapeutic drug monitoring Discharge Disposition: Home or Self Care 05/07/2025 10:00 AM EDT Office Visit [facility] [place] - [address] [phone] Hedy Levi MD Multiple sclerosis (CMS/HCC V24, CMS/[facility] V28) (Primary Dx); Gait difficulty; High risk medication use; Other fatigue 04/22/2025 2:30 PM EDT Procedure visit Obstetrics [facility]necology - [address] [place] [phone] Mona Pitts DO Abnormal uterine bleeding (Primary Dx); Thickened endometrium from Last 3 Months Immunizations Immunization Administration Dates Next Due Pfizer (ages 12 & older) JACKIE S-CoV-2 COVID-19, mRNA, LNP-S, regina-sucrose, preservative free 11/04/2021 Pfizer SARS-CoV-2 COVID-19, mRNA, LNP-S, preservative free 10/07/2021 Surgical History Surgery Date Site/Laterality Comments OTHER SURGICAL HISTORY PROCEDURE:pinch nerve in neck CARPAL TUNNEL RELEASE 11/23/2020 PROCEDURE:CARPAL TUNNEL RELEASE CAROTID STENT PROCEDURE:CAROTID STENT Medical History Medical History Date Comments Migraine DX:Migraine Multiple sclerosis 01/15/2012 DX:Multiple s clerosis (HCC) Hypertension DX:Hypertension Arthritis 2020 DX:Arthritis;COM MENT:Right Hip Heart attack (CMS/HCC V24, CMS/HCC V28) DX:Heart attack (HCC) Diabetes mellitus (CMS/HCC V 24, CMS/[facility] V28) DX:Diabetes mellitus (HCC) Family History [...] Sign Reading Time Taken Comments Blood Pressure 109/66 06/08/2025 10:57 AM EDT Pulse 90 06/08/2025 10:57 AM EDT Temperature 36.3 C (97.3 F) 05/07/2025 1:27 PM EDT Respiratory Rate 14 06/08/2025 10:57 AM EDT Oxygen Saturation 97% 05/07/2025 1:27 PM EDT Inhaled Oxygen Concentration - - Weight 86.6 kg (191 lb) 06/08/2025 10:57 AM EDT Height 150 cm (4' 11.06 ) 06/08/2025 10:57 AM ED T Body Mass Index 38.51 06/08/2025 10:57 AM EDT Plan of Treatment Upcoming Encounters Date Type Department Care Team (Late st Contact Info) Description 07/01/2025 8:30 AM EDT Treatment [facility] [address] [phone] Ian Saldana, MEAT SERVICE TEAM MEMBER 07/03/2025 8:00 AM EDT Treatment [facility] [address] [phone] Ian Saldana, MEAT SERVICE TEAM MEMBER 07/07/2025 8:30 AM EST Treatment [facility] [address] [phone] Dorys Adame, PT 07/10/2025 8:00 AM EST Treatment [facility] [address] [phone] Dorys Adame, PT 11/04/2025 8:00 AM EST Appointment [facility] [place] Outpatient [facility]habilititation - [address] [phone] 11/04/2025 8:00 AM EST Office Visit [facility] [place] - [address] [phone] Tasia Ruvalcaba, LILY [address] [address] Health Maintenance Due Date Last Done Comments Colorectal Cancer Screening: Colonoscopy 1973 Diabetes: Annual Foot Exam 11/14/1983 Diabetes: Annual Retina Eye Exam 11/14/1983 Hepatitis B Vaccines (1 of 3 - 19+ 3-dose series) 1992 Pneumococcal Vaccine: 50+ Years (1 of 2 - PCV) 1992 HIV Screening 08/10/2022 Hepatitis C Screening 08/10/2022 Medicare Annual Wellness Visit 08/10/2022 Social Influencers of Health Screening 08/10/2022 RSV Immunization Adult Patients (1 - Risk 50-74 years 1-dose series) 11/14/2023 Zoster Vaccines (1 of 2) 11/14/2023 Cervical Cancer Screening: Pap Smear 05/04/2024 05/04/2021 COVID-19 Vaccine ( season) 2025 11/04/2021, 10/07/2021 Influenza Vaccine (#1) 2025 , 05/05/2021, 07/03/2020, Additional history exists Diabetes: Blood Sugar Control Test (HGBA1C) 12/03/2025 06/04/2025, 08/15/2024, 04/05/2024 Diabetes: Annual GFR (Glomerular Filtration Rate) 05/07/2026 05/07/2025, 11/04/2024 Hypertension/CHF/CAD Annual BMP Blood Test 05/07/2026 05/07/2025, 11/04/2024 Diabetes: Annual Urine Albumin-Creatinine Ratio (uACR) 06/04/2026 06/04/2025, 08/15/2024, 10/04/2023, Additional history exists Breast Cancer Screening 03/17/2027 03/17/20, 10/25/2023, 06/29/2022, Additional history exists Cholesterol Screening (Lipid Panel) 06/04/2030 06/04/2025, 08/15/2024, 04/05/2024 DTaP,Tdap,and Td Vaccines (2 - Td or Tdap) 05/18/2033 05/18/2023 Depression Screening Completed 06/06/2025 HIB Vaccines Aged Out No longer eligi [...] on patient's age to complete this topic Goals Goal Patient Goal Type Associated Problems Recent Progress Patient-Stated? 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) Pt will perform tub transfer bench w/ no > than min A, with ability to verbally direct family for same once tub transfer bench obtained Procedures Procedure Name Priority Date/Time Associated Diagnosis Comments CBC WITH AUTO DIFFERENTIAL Routine 05/07/2025 10:14 AM EDT Multiple sclerosis (CMS/HCC V24, CMS/HCC V28) Encounter for therapeutic drug monitoring HEPATIC [...] CMS/HCC V28) Encounter for therapeutic drug monitoring CREATININE, SERUM Routine 05/07/2025 10: 14 AM EDT Multiple sclerosis (CMS/HCC V24, CMS/HCC V28) Encounter for therapeutic drug monitoring BUN Routine 05/07/2025 10:14 AM EDT Multiple sclerosis (CMS/HCC V24, CMS/HCC V28) Encounter for therapeutic drug monitoring TISSUE EXAM Routine 04/22/2025 3:42 PM EDT Abnormal uterine bleeding Thickened endometrium SC ENDOMETRIAL SAMPLING W/WO ENDOCERVICAL SAMPLING W/O CERVICAL DILATION Routine 04/22/2025 2:56 PM EDT Abnormal uterine bleeding Thickened endometrium MG MAMMO DIGITAL SCREENING W WAGNER BILAT Routine 03/17/2025 1:23 PM EDT Encounter for screening mammogram for malignant neoplasm of breast HEMOGLOBIN A1C Routine 04/05/2024 LIPID PANEL Routine 04/05/2024 HM URINE ALBUMIN CREATININE RATIO Routine 10/04/2023 PAP SMEAR Routine 05/04/2021 from Last 3 Months or Most Recently Relevant to Health Maintenance Results * CBC auto differential (05/07/2025 10:14 AM EDT) WBC 6.0 4.8 - 10.8 K/mcL LAB HEMETOLOGY METHOD 05/07/2025 1:54 PM EDT [facility] RBC 4.50 3.80 - 4.80 M/mcL LAB HEMETOLOGY METHOD 05/07/2025 1:54 PM EDT [facility] Hemoglobin 13.5 11.5 - 16.0 g/dL LAB HEMETOLOGY METHOD 05/07/2025 1:54 PM EDT [facility] Hematocrit 41.1 35.0 - 47.0 % LAB HEMETOLOGY METHOD 05/07/2025 1:54 PM EDT [facility] MCV 92.2 79.0 - 98.0 FL LAB HEMETOLOGY METHOD 05/07/2025 1:54 PM EDT [facility] MCH 30.3 27.0 - 32.0 pcg LAB HEMETOLOGY METHOD 05/07/2025 1:54 PM EDT [facility] MCHC 32.8 32.0 - 37.0 g/dL LAB HEMETOLOGY METHOD 05/07/2025 1:54 PM EDT [facility] RDW 13.2 11.0 - 15.0 % LAB HEMETOLOGY METHOD 05/07/2025 1:54 PM EDT [facility] Platelets 171 130 - 400 K/mcL LAB HEMETOLOGY METHOD 05/07/2025 1:54 PM EDT [facility] MPV 10.3 7.0 - 11.0 FL LAB [facility]OLOGY [facility]07[facility] NRBC 0.0 <1.0 % LAB HEMETOLOGY METHOD 05/07/2025 1:54 PM EDT [facility] NRBC Absolute 0.00 <0.10 K/mcL LAB HEMETOLOGY METHOD 05/07/2025 1:54 PM [facility] Neutrophils Relative 65.6 % LAB HEMETOLOGY METHOD 05/07/2025 1:54 PM [facility] Lymphocytes Relative 17.2 % LAB HEMETOLOGY METHOD 05/07/2025 1:54 PM [facility] Monocytes Relative 12.4 % LAB HEMETOLOGY METHOD 05/07/2025 1:54 PM [facility] Eosinophils Relative 3.8 % LAB HEMETOLOGY METHOD 05/07/2025 1:54 PM [facility] Basophils Relative 0.7 % LAB HEMETOLOGY METHOD 05/07/2025 1:54 PM [facility] Immature Granulocytes Relative 0.3 % LAB HEMETOLOGY METHOD 05/07/2025 1:54 PM [facility] Neutrophils Absolute 3.95 1.50 - 7.00 K/mcL LAB HEMETOLOGY [facility]/07[facility]25 [facility] Lymphocytes Absolute 1.04 1.00 - 5.00 K/mcL LAB HEMETOLOGY METHOD 05/07/2025 1:54 PM [facility] Monocytes Absolute 0.75 0.20 - 1.00 K/mcL LAB HEMETOLOGY METHOD 05/07/2025 1:54 PM [facility] Eosinophils Absolute 0.23 0.00 - 0.50 K/[facility] LAB HEMETOLOGY METHOD 05/07/2025 1:54 PM EDT [facility] Basophils Absolute 0.04 0.00 - 0.20 K/[facility] LAB HEMETOLOGY METHOD 05/07/2025 1:54 PM EDT [facility] Immature Granulocytes Absolute 0.02 0.00 - 0.03 K/[facility] LAB HEMETOLOGY METHOD 05/07/2025 1:54 PM EDT [facility] Blood Venous blood specimen / Unknown Venipuncture / Unknown 05/07/2025 10:14 AM EDT 05/07/2025 10:14 AM EDT Tasia Marlon Bautistai Fillm LAB BLOOD ORDERABLES Final R esult Performing Organization Address City/[facility]/ZIP Co de Phone Number [facility] [address] [place] [address], [place] [phone] * Creatinine (05/07/2025 10:14 AM EDT) Creatinine 0.60 0.50 - 1.10 mg/dL LAB CHEMISTRY METHOD 05/07/2025 3:17 PM EDT [facility] eGFR 109 >=60 mL/min/1. 73m2 LAB CHEMISTRY METHOD 05/07/2025 3:17 PM EDT [facility] Comment:Calculation based on the Chronic Kidney Disease Epidemiology Collaboration (CKD-EPI) equation refit without adjustment for race. Blood Venous blood specimen / Unknown Venipuncture / Unknown 05/07/2025 10:14 AM EDT 05/07/2025 10:14 AM EDT Tasia Marlon [employer] LAB BLOOD ORDERABLES Final R esult Performing Organization Address City/[facility]/ZIP Co de Phone Number [facility] [address] [place] [address], [place] [phone] * (ABNORMAL) Vitamin D 25 hydroxy (05/07/2025 10:14 AM EDT) [facility] Vit D, 25-Hydroxy 26.6(L) 30.0 - 80.0 ng/mL LAB CHEMISTRY METHOD 05/07/2025 4:41 PM EDT [facility] Blood Venous blood specimen / Unknown Venipuncture / Unknown 05/07/2025 10:14 AM EDT 05/07/2025 10:14 AM EDT [facility] LAB BLOOD ORDERABLES Final R esult [facility] [address] [place] [address], [place] [phone] * BUN (05/07/2025 10:14 AM EDT) [facility] BUN 8 5 - 25 mg/dL LAB CHEMISTRY METHOD 05/07/2025 3:17 PM EDT [facility] Blood Venous blood specimen / Unknown Venipuncture / Unknown 05/07/2025 10:14 AM EDT 05/07/2025 10:14 AM EDT Tasia BAUTISTA LAB BLOOD ORDERABLES Final R esult [facility] [address] [place] [address], [place] [phone] * (ABNORMAL) Vitamin B12 (05/07/2025 10:14 AM EDT) [facility] Vitamin B-12 1,461(H) 250 - 900 pcg/mL LAB CHEMISTRY METHOD 05/07/2025 3:47 PM EDT [facility] Blood Venous blood specimen / Unknown Venipuncture / Unknown 05/07/2025 10:14 AM EDT 05/07/2025 10:14 AM EDT us Tasia BAUTISTA LAB BLOOD ORDERABLES Final R esult [facility] [address] [place] [address], [place] [phone] * (ABNORMAL) Hepatic function panel (05/07/2025 10:14 AM EDT) Total Protein 6.5 6.0 - 8.0 g/dL LAB CHEMISTRY METHOD 05/07/2025 3:47 PM EDT [facility] Albumin 3.6 3.2 - 5.0 g/dL LAB CHEMISTRY METHOD 05/07/2025 3:47 PM EDT [facility] Total Bilirubin 0.5 0.0 - 1.4 mg/dL LAB CHEMISTRY METHOD 05/07/2025 3:47 PM T [facility] Bilirubin, Direct 0.2 0.0 - 0.3 mg/dL LAB CHEMISTRY METHOD 05/07/2025 3:47 PM EDT [facility] Bilirubin, Indirect 0.3 0.0 - 1.1 mg/dL LAB CHEMISTRY METHOD 05/07/2025 3:47 PM T [facility] ALT (SGPT) 62(H) 10 - 60 unit/L LAB CHEMISTRY METHOD 05/07/2025 3:47 PM T [facility] AST (SGOT) 53(H) 10 - 42 unit/L LAB CHEMISTRY METHOD 05/07/2025 3:47 PM T [facility] Alkaline Phosphatase 94 42 - 121 unit/L LAB CHEMISTRY METHOD 05/07/2025 3:47 PM T [facility] Blood Venous blood specimen / Unknown Venipuncture / Unknown 05/07/2025 10:14 AM EDT 05/07/2025 10:14 AM EDT us Tasia BAUTISTA LAB BLOOD ORDERABLES Final R esult Performing Organization Address [facility]/ZIP Co de Phone Number [facility] [address] [place] [address], * Tissue Exam (04/22/2025 3:42 PM EDT) Final Diagnosis Endometrial biopsy: Glandular atrophy and stromal pseudo-deciduali zation, consistent with progestin effect No endometrial polyp, hyperplasia or neoplasm identified 04/24/2025 11:39 AM EDT [facility] Clinical Information Abnormal uterine bleeding (N93.9) 04/24/2025 11:39 AM EDT [facility] Gross Description A. Endometrium, emb: Labeled Endo and EMB on the top of the lid . Received in formalin is a 1.5 x 0.8 x 0.15 cm aggregate of soft, esteban-red tissue fragments and predominating blood clot, which is wrapped in paper and submitted in toto in one cassette, multiple pieces, x 2. TS 04/24/2025 11:39 AM EDT [facility] Disclaimer Unless otherwise specified, all tissue is 10% NB formalin fixed and paraffin embedded. 04/24/2025 11:39 AM EDT [facility] Tissue Endometrial structure / Unknown Non-blood Collection / Unknown 04/22/2025 3:42 PM EDT 04/22/2025 3:42 PM EDT Mona Pitts DO LAB PATHOLOGY ORDERABLES Chaya l Result Performing Organization Address [facility]/ZIP Co de Phone Number [facility] [address] [place] [address], * SC ENDOMETRIAL SAMPLING W/WO ENDOCERVICAL SAMPLING W/O CERVICAL [...] tolerated procedure well with no complications: yes Mona Pitts DO IN CLINIC/BEDSIDE ORDERABLES Final Result * MG Mammo Digital Screening w Wagner bilat (03/17/2025 1:23 PM EDT) Anatomical Region Laterality Modality Breast Bilateral Mammography 03/18/2025 4:38 PM EDT Impressions 03/18/2025 4:42 PM EDT 1. No mammographic evidence of malignancy 2. Scattered fibroglandular tissue BI-RADS CATEGORY: 2 - BENIGN RECOMMENDATION: Screening bilateral mammogram is recommended in 1 year. Mammo Location: [facility], [address] [place] [address], [id number], . -------- FINAL REPORT -------- Dictated By: Chi Crowell Dictated Date: 03/18/2025 16:38 ET Assigned Physician: Chi Crowell Reviewed and Electronically Signed By: Chi Crowell Signed Date: 03/18/2025 16:42 ET Workstation ID: [id number] Transcribed By: Self Edit Transcribed Date: 03/18/2025 [...] is recommended in 1 year. Mammo Location: [facility], [address] [place] [address], [id number], . -------- FINAL REPORT -------- Dictated By: Chi Crowell Dictated Date: 03/18/2025 16:38 ET Assigned Physician: Chi Crowell Reviewed and Electronically Signed By: Chi Crowell Signed Date: 03/18/2025 16:42 ET Workstation ID: [id number] Transcribed By: Self Edit Transcribed Date: 03/18/2025 16:38 ET Maggie Guerrero MD IMG BI PROCEDURES Final Result * Hemoglobin A1c (04/05/2024) Hemoglobin A1C 0.0 [...] LAB BLOOD ORDERABLES Chaya l Result * Pap smear (05/04/2021) 05/04/2021 Narrative HISTORICAL TESTING LAB RESULTING AGENCY - 05/13/2021 7:41 AM EDT [id number] THINPREP PAP, IMAGED: NEGATIVE FOR SQUAMOUS INTRAEPITHELIAL [...] Most Recently Relevant to Health Maintenance Insurance [facility] MEDICARE Member Subscriber Plan / Payer (Ef fective 2019-Present) Name:FABI VIEIRA Relation to Subscriber:Self Name:Fabi Vieira T Payer ID:[id number] Group ID:[id number] Type:Not on file Address: [place] [address] [address] [phone] Care Teams Wicker Worker Relationship Specialty Start Date End Date Maggie Guerrero MD [address] [place] [address] PCP - General 12/11/07
--- OUTSIDE RECORDS SUMMARY | 2025-06-26 15:14 | XMS_ITS | Data Portability ---
Author Organization [facility], [facility] Address [address] [place] [address] Care Team Providers Care Therapeutic Specialist Name Role Phone GEMINI HAMLIN Primary Care Provider Assessment Encounter Date Assessment Date Assessment LastModified by Organization Details LastModified Time 11/06/2024 11/06/2024 I am seeing the patient today under the supervision of who was available but who did not see the patient. The patient presents today for follow-up. Has known trochanteric bursitis of the Right hip. Has had previous cortisone injection which gave relief for a few weeks and she has been dealing with pain until today's appointment. Has had no recent trauma, no fevers or chills, no neurovascular changes. Presents today for further evaluation. PAST MEDICAL/SURGICAL HISTORY Past medical history is reviewed per intake sheet. PHYSICAL FINDINGS On physical examination, the patient is well appearing and in no apparent distress, alert and oriented x3. Gait is symmetric. Examination of the hip reveals the skin to be intact, normal musculature, continued tenderness on palpation over the greater trochanter. No pain with range of motion of the hip, has full range of motion, no crepitus noted with range of motion. No significant pain with straight leg raise. ASSESSMENT Symptomatic trochanteric bursitis of the Right hip. PLAN I explained the nature of the diagnosis with the patient and its treatment options both conservative and surgical.Conservati ve measures were discussed at length including but not limited to physical therapy, bracing, anti-inflammatories and injection therapies. Please see procedure note for more information about the injection performed today. Given the patient's short response to cortisone injection last time if she were to feel similar I recommend an MRI to rule out a gluteal tendon tear or further pathology that may need surgical intervention. The patient will follow up in 3 months. The patient understands and agrees with the plan. They know to call if they have any further questions or concerns regarding their symptoms, or to follow up sooner if needed. Not available 11/06/2024 18:11:30 11/10/2024 11/10/2024 Assessment: Righ t ring trigger finger, initial diagnosis Plan: Pathophysiology thrombocytopenia. Treatment options have been reviewed. Cortisone injections right ring finger flexor tendon sheath. Second injection can be performed if needed. If recurrent after 2 injections, surgical release would be recommended. 1 [email or web address] Not available 11/10/2024 14:31:58 01/01/2025 01/01/2025 I am seeing the patient today under the supervision of Dr. Crowley who was available but who did not see the patient. HPI: Patient has been treated for trochanteric bursitis in the past. She has had refractory symptoms and symptoms that have radiated into the groin. She feels as if her symptoms have not gotten better with home exercises or with the previous trochanteric bursal injection. We had obtained an MRI to reevaluate this. MRI findings: The MRI images were available for my independent review today. I agree with the findings listed below. 1. Anterior superior cleavage tear of the labrum. 2. Gluteus medius and minimus intact. No other tendinopathy. 3. Articular cartilage surfaces intact. Past family, medical, social history and review of systems has been reviewed, updated and is located in the patient s chart. Examination: Patient answers questions appropriately. Impression: Labral tear right hip Plan: I explained the nature of the diagnosis with the patient and its treatment options both conservative and surgical. At this point in time I discussed with the patient an intra-articular hip injection and moving forward with physical therapy. She agrees to this. We will work towards scheduling that injection appointment. The patient understands and agrees with the plan. They know to call if they have any further questions or concerns regarding their symptoms, or to follow up sooner if needed. This visit was a real-time telemedicine interaction between a physician assistant kitchen manager in the medical office and the patient in their home. The totality of the communication of information exchanged between the physician Dry Wall Nailer (myself) and the patient during the course of the synchronous telemedicine services was sufficient to meet the ding components and/or requirements of the same service when rendered via [id number] interaction. I discussed with the patient risks and benefit of telemedicine services and the patient consented to the receipt of such telemedicine services. Telemedicine: Phone call (audio only) Patient Location: Home Provider Location[facility] [address] [place], [place] [address]: 103-108 p.m. Time spent with patient: 5 minutes [email or web address] Not available 01/01/2025 13:11:33 02/02/2025 02/02/2025 I am seeing the patient today under the supervision of Dr. Felder who was available but who did not see the patient. HPI: Patient is here today for reevaluation of right hip pain. Has been evaluated by myself and diagnosed with osteoarthritis of the hip. Here today for intra-articular hip injection. No new injury or symptom changes. Review of systems: As noted patient intake. Physical exam:The patient is well appearing and in no apparent distress. Alert and oriented x3. Gait is antalgic on the right. Examination of the hip reveals no effusion, erythema, or warmth. No point tenderness over the greater trochanter. Forward flexion to 90. External rotation to 60 internal rotation to 0. + impingement, - straight leg raise. Calf soft and nontender. 5/5 strength with hip flexion/extension. Assessment: Early osteoarthritis of the right hip Plan: I explained the nature of the diagnosis with the patient and its treatment options both conservative and surgical. Conservative measures were discussed at length including oral antiinflammatories, physical therapy, bracing and injection therapies. Please see the procedure note for further documentation about the injection performed today. Follow-up as scheduled for re-evaluation, sooner if any difficulty. The patient understands and agrees with the plan. They know to call if they have any further questions or concerns regarding their symptoms, or to follow up sooner if needed. [email or web address] Not available 02/02/2025 13:45:26 06/15/2025 06/15/2025 Chief complaint: Right hip pain. History of present illness: The patient is presenting with a chief complaint of right hip pain. She has had pain for over a year. The patient currently has 8 out of 10 pain. Currently the patient uses a cane, walker, or wheelchair when walking. The patient has tried rest, NSAIDS, exercise, corticosteroid injection, and activity modification but continues to have pain. The patient ambulates with an antalgic gait due to the pain. The patient has pain with range of motion of the hip and weight bearing. The pain is made worse with initiation of activity. The patient has difficulty performing activities of daily living due to this pain. Past medical history: Past medical history reviewed from the patient's intake sheet. Pertinent positives: Heart attack, diabetes, liver disease, and multiple sclerosis Past surgical history: Past surgical history reviewed from the patient's intake sheet. Pertinent positives: none Allergies: Allergies reviewed from the patient's intake sheet. Pertinent positives: none Medications: Medications reviewed from the patient's intake sheet. Pertinent positives: none Social history: Social history reviewed from the patient's intake sheet. Pertinent positives: none Physical Examination: The patient is in no acute distress. She is alert and oriented x3. She has nonlabored breathing. Her hearing is intact to spoken word. Her extra-ocular motion is intact. Right lower extremity - Skin is intact without ecchymosis, induration, or fluctuance. There is no appreciable swelling. Hip range of motion is 0-90 degrees. The patient has 5 degrees of internal rotation and 20 degrees of external rotation. There is no significant tenderness to palpation over the greater trochanter. The patient has full, painless, range of motion of the knee. There is no knee effusion. Sensation is intact to light touch over the dorsum of the foot, in the first webspace, and over the plantar aspect of the foot. The patient has 5/5 strength with plantarflexion of the ankle, dorsiflexion of the ankle, plantarflexion of the great toe, and dorsiflexion of the great toe. The foot is warm and well-perfused with brisk capillary refill. There is a 2+ dorsalis pedis pulse. Radiographs: 2 views of the right hip including low AP pelvis and right leg frog leg lateral radiographs were obtained and evaluated in the office today. X-rays demonstrate mild degenerative changes with slight joint space narrowing in the right hip. There is no evidence of fracture. Assessment and plan: The patient is presenting with a chief complaint of right hip pain. She demonstrates mild osteoarthritis of the right hip on her radiographs. She underwent a an intraarticular corticosteroid injection under ultrasound guidance and had 75% improvement in her symptoms in the hours that followed. I explained to her the results from a hip replacement would not be expected to be better than this. She indicated that she still wished to proceed with surgery knowing that she may have residual pain as the injection did not get rid ofall of her pain. At this point, the patient has failed non-operative treatment of her right hip osteoarthritis. The patient has tried NSAIDs, rest, and exercise, corticosteroid injection, and activity modification but continues to have worsening pain for greater than 3 months. A thorough discussion was had with the patient regarding both nonsurgical and surgical interventions for treatment of right hip osteoarthritis. Since the patient has experienced worsening pain despite conservative treatment, the patient wished to proceed with surgery. The nature of hip replacement surgery, the potential risks, benefits, complications, the magnitude of the surgery, the intensity of postoperative recovery, and the elective nature of a right total hip arthroplasty were discussed at length. Risks and complications discussed included infection requiring further surgery or potential removal of implants, persistent infection requiring possible amputation, wound healing complications, leg length discrepancy, leg rotational discrepancy, instability or dislocation, need for additional surgery or revision arthroplasty, aseptic loosening, implant failure, injury to nerve, foot drop, numbness, injury to blood vessel, bleeding, hematoma, need for transfusion, fracture, heart attack, stroke, deep vein thrombosis, pulmonary embolism, and even intraoperative or postoperative . Despite these risks, the patient still wished to proceed with surgery. The patient was instructed that I am happy to meet again at any time in order to review any additional questions or concerns the patient might have. Since the patient wishes to proceed, we will schedule the patient for a right total hip arthroplasty. The patient will require clearance from a medical doctor prior to surgery. The next planned follow-up is at the preoperative history and physical appointment. [email or web address] Not available 06/15/2025 09:38:29 Plan of Treatment Reminders Order Date Submit Date Provider Last Modified By Organization Details Last Modified Time Details Appointments None record ed. Lab None record ed. Referral None record ed. Procedures None record ed. Surgeries None record ed. Imaging XR, hip + pelvis , unilat eral, 2 or 3 view - 204 2v 025 06/15/20 25 [email or web address] [facility], [address], [address], [place], [address], 08:40:34 Medication Orders None record ed. Patient TargetsNo targets recorded. Patient InstructionsNo instructions recorded. Reason for Referral None Reported. Results Created Date Observation Date Name Description Value Unit Range Abnormal Flag Note LastModifiedBy Organization Detail LastModifiedTime 06/17/2006/18/2025 CBC WITH DIFFE RENTI AL/PL ATELE T WBC 5.9 x10e3 /uL 3.4-10 .8 normal Not Available [facility] ([facility]) [address] [place], [address], 06/18/2025 06:05:42 06/17/2006/18/2025 CBC WITH DIFFE RENTI AL/PL ATELE T RBC 5.02 x10e6 /uL 3.77-5 .28 normal Not Available [facility] ([facility]) [address] [place], [address], 06/18/2025 06:05:42 06/17/2006/18/2025 CBC WITH DIFFE RENTI AL/PL ATELE T hemoglobin 14.3 g/dL 11.1-1 5.9 normal Not Available [facility] ([facility]) [address] [place], [address], 06/18/2025 06:05:42 06/17/2006/18/2025 CBC WITH DIFFE RENTI AL/PL ATELE T hematocrit 44.7 % 34.0-4 6.6 normal Not Available [facility] ([facility]) [address] [place], [address], 06/18/2025 06:05:42 06/17/2006/18/2025 CBC WITH DIFFE RENTI AL/PL ATELE T MCV 89 fL 79-97 normal Not Available [facility] ([facility]) [address] [place], [address], 06/18/2025 06:05:42 06/17/2006/18/2025 CBC WITH DIFFE RENTI AL/PL ATELE T MCH 28.5 pg 26.6-3 3.0 normal Not Available [facility] ([facility]) [address] [facility], [place], [address], 06/18/2025 06:05:42 06/17/20 25 06/18/2025 CBC WITH DIFFE RENTI AL/PL ATELE T MCHC 32.0 g/dL 31.5-3 5.7 normal Not Available [facility] ([facility]) [address] [place], [address], 06/18/2025 06:05:42 06/17/2006/18/2025 CBC WITH DIFFE RENTI AL/PL ATELE T RDW 13.0 % 11.7-1 5.4 Not Available [facility] ([facility]) [address] [place], [address], 06/18/2025 06:05:42 06/17/2006/18/2025 CBC WITH DIFFE RENTI AL/PL ATELE T platelets 182 x10e3 /uL 150-45 0 normal Not Available [facility] ([facility]) [address] [place], [address], 06/18/2025 06:05:42 06/17/2006/18/2025 CBC WITH DIFFE RENTI AL/PL ATELE T neutrophils 66 % not estab. normal Not Available [facility] ([facility]) [address] [place], [address], 06/18/2025 06:05:42 06/17/2006/18/2025 CBC WITH DIFFE RENTI AL/PL ATELE T lymphs 17 % not estab. normal Not Available [facility] ([facility]) [address] [place], [address], 06/18/2025 06:05:42 06/17/2006/18/2025 CBC WITH DIFFE RENTI AL/PL ATELE T monocytes 13 % not estab. normal Not Available [facility] ([facility]) [address] [place], [address], 06/18/2025 06:05:42 06/17/2006/18/2025 CBC WITH DIFFE RENTI AL/PL ATELE T eos 3 % not estab. normal Not Available [facility] ([facility]) [address] [place], [address], 06/18/2025 06:05:42 06/17/2006/18/2025 CBC WITH DIFFE RENTI AL/PL ATELE T basos 1 % not estab. normal Not Available [facility] ([facility]) [address] [facility], [place], [address], 06/18/2025 06:05:42 06/17/2006/18/2025 CBC WITH DIFFE RENTI AL/PL ATELE T immature cells MANAGER STATISTICAL PROGRAMMING Not Available [facility] ([facility]) [address] [place], [address], 06/18/2025 06:05:42 06/17/2006/18/2025 CBC WITH DIFFE RENTI AL/PL ATELE T neutrophils (absolute) 3.9 x10e3 /uL 1.4-7. 0 normal Not Available [facility] ([facility]) [address] [place], [address], 06/18/2025 06:05:42 06/17/2006/18/2025 CBC WITH DIFFE RENTI AL/PL ATELE T lymphs (absolute) 1.0 x10e3 /uL 0.7-3. 1 normal Not Available [facility] ([facility]) [address] [place], [address], 06/18/2025 06:05:42 06/17/2006/18/2025 CBC WITH DIFFE RENTI AL/PL ATELE T monocytes(ab solute) 0.8 x10e3 /uL 0.1-0. 9 normal Not Available [facility] ([facility]) [address] [facility], [place], [address], 06/18/2025 06:05:42 06/17/2006/18/2025 CBC WITH DIFFE RENTI AL/PL ATELE T eos (absolute) 0.2 x10e3 /uL 0.0-0. 4 normal Not Available [facility] ([facility]) [address] [facility], [place], [address], 06/18/2025 06:05:42 06/17/2006/18/2025 CBC WITH DIFFE RENTI AL/PL ATELE T baso (absolute) 0.0 x10e3 /uL 0.0-0. 2 normal Not Available [facility] ([facility]) [address] [facility], [place], [address], 06/18/2025 06:05:42 06/17/2006/18/2025 CBC WITH DIFFE RENTI AL/PL ATELE T immature granulocytes 0 % not estab. Not Available [facility] ([facility]) [address] [facility], [place], [address], 06/18/2025 06:05:42 06/17/2006/18/2025 CBC WITH DIFFE RENTI AL/PL ATELE T immature grans (abs) 0.0 x10e3 /uL 0.0-0. 1 Not Available [facility] ([facility]) [address] [place], [address], 06/18/2025 06:05:42 06/17/2006/18/2025 CBC WITH DIFFE RENTI AL/PL ATELE T NRBC MANAGER STATISTICAL PROGRAMMING Not Available [facility] ([facility]) [address] [facility], [place], [address], 06/18/2025 06:05:42 06/17/2006/18/2025 CBC WITH DIFFE RENTI AL/PL ATELE T hematology comments: MANAGER STATISTICAL PROGRAMMING Not Available [facility] ([facility]) [address] [facility] [place], [address], 06/18/2025 06:05:42 06/17/2006/18/2025 ELECT ROLYT E PANEL sodium 137 mmol/ L 134-14 4 normal Not Available [facility] ([facility]) [address] [facility] [place], [address], 06/18/2025 06:05:42 06/17/2006/18/2025 ELECT ROLYT E PANEL potassium 3.9 mmol/ L 3.5-5. 2 normal Not Available [facility] ([facility]) [address] [facility] [place], [address], 06/18/2025 06:05:42 06/17/2006/18/2025 ELECT ROLYT E PANEL chloride 104 mmol/ L 96-106 normal Not Available [facility] ([facility]) [address] [facility] [place], [address], 06/18/2025 06:05:42 06/17/2006/18/2025 ELECT ROLYT E PANEL carbon dioxide, total 19 mmol/ L 20-29 below low normal Not Available [facility] ([facility]) [address] [facility] [place], [address], 06/18/2025 06:05:42 06/17/2006/18/2025 BUN+C REAT BUN 12 mg/dL 6-24 normal Not Available [facility] ([facility]) [address] [facility] [place], [address], 06/18/2025 06:05:42 06/17/2006/18/2025 BUN+C REAT creatinine 0.47 mg/dL 0.57-1 .00 below low normal Not Available [facility] ([facility]) [address] [facility] [place], [address], 06/18/2025 06:05:42 06/17/2006/18/2025 BUN+C REAT eGFR 115 mL/mi n/1.7 3 >59 normal Not Available [facility] ([facility]) [address] [place], [address], 06/18/2025 06:05:42 06/17/2006/18/2025 BUN+C REAT BUN/creatini ne ratio 26 9-23 above high normal Not Available [facility] ([facility]) [address] [facility], [place], [address], 06/18/2025 06:05:42 06/17/2006/17/2025 PROTH ROMBI N TIME (PT) INR 1.2 0.9-1. 2 Refer ence inter emerson is for non-a ntico agula odilon patie nts. Sugge sted INR thera peuti c range for Vitam in K antag onist thera py: Stand kia Dose (mode rate inten sity thera peuti c range ): 2.0 - 3.0 Highe r inten sity thera peuti c range 2.5 - 3.5 Not Available [facility] ([facility]) [address] [place], [address], 06/18/2025 06:05:43 06/17/2006/17/2025 PROTH ROMBI N TIME (PT) prothrombin time 12.1 sec 9.1-12 .0 above high normal Not Available [facility] ([facility]) [address] [place], [address], 06/18/2025 06:05:43 06/17/2006/18/2025 HEMOG LOBIN A1C hemoglobin A1C 8.6 % 4.8-5. 6 above high normal Predi abete s: 5.7 - 6.4 Diabe tereza: >6.4 Glyce madisyn contr ol for adult s with diabe tereza: <7.0 Not Available [facility] ([facility]) [address] [place], [address], 06/18/2025 06:05:43 06/17/2006/17/2025 PTT, ACTIV ATED APTT 25 sec 24-33 normal This test has not been valid ated for monit oring unfra ction ated hepar in thera py. aPTT- based thera peuti c range s for unfra ction ated hepar in thera py have not been estab noe dominguez. For gener al guide lines on Hepar in monit oring , refer to the [facility] Direc tory of Servi kendall. Not Available [facility] ([facility]) [address] [facility], [place], [address], 06/18/2025 06:05:43 06/17/2006/18/2025 GLUCO SE glucose 111 mg/dL 70-99 above high normal Not Available [facility] ([facility]) [address] [facility], [place], [address], 06/18/2025 06:05:44 12/17/19 25 12/14/2024 MRI, lower extre mity joint (s), w/o contr ast [facility] Access ion Number : [id number] Patien t Name: Poonam Vieira Record Number : [id number] Date of : 1975 Date of Exam: 2024 Referr ing Physic kimberley: Eliel OakelyS [address]/ [address] [place] [address] Exam: MR Hip Unilat (C-) CPT 25513 - Right Room Descri ption: [facility] Verio 3.0T CLINIC AL HISTOR Y: Right hip pain. Concer n for glutea l tendon tear. TECHNI QUE: MR of the right hip was perfor med withou t intrav enous contra st. COMPAR NERIS: None. FINDIN GS: Large field- of-vie w pelvis : Overal l bone marrow signal is mildly hetero geneou s with eviden ce of red marrow reconv ersion . No eviden ce of marrow infilt ration . Sacroi liac joints appear intact . The pubic symphy sis appear s intact . The left hip is unrema rkable for techni que. Arcuat e enlarg ed uterus which appear s hetero geneou s, and may reflec t adenom yosis. Right hip: Bone: There is no eviden ce of osteon ecrosi s or fractu re. Acetab ular labrum : Right anteri or superi or cleava ge tear series 8 image 23 series 4 image 10. Articu lar cartil age: The articu lar cartil age is of normal thickn ess. No focal defect s are seen. Muscle and tendon s: The iliops oas, rectus femori s and common hamstr ing tendon s appear intact . The gluteu s medius and minimu s tendon s appear intact . The ischio femora l space is within normal limits . No inguin al lympha denopa thy. No joint effusi on. IMPRES MARIA FERNANDA: 1. Right anteri or superi or cleava ge tear of the labrum . 2. Normal fetus medius and minimu s tendon s. 3. Articu lar uterus which appear s hetero geneou s and may reflec t underl fela adenom yosis. Electr onical ly Signed By: Grayson sung MD [email or web address] [facility] ([facility]) [address], [place], [address], 12/17/2024 14:01:55 06/15/20 25 06/15/2025 XR, hip + pelvi s, unila teral , 2 or 3 view http:/ [email or web address] ?Encry pted=s hAaTro YD8dLq bEUv6g %2BXZw aYqtaq 0bqfl% 2Fg9IQ a4ajBk vP9nXo QUaueC m3YtLR FvZlgJ JJ8mAn HZtai3 8f8505 AC0Klb XqAWae mKiQtr MwF INTERFACE [facility] [address], [place], [address], 06/15/2025 08:28:13 06/15/20 25 06/15/2025 XR, hip + pelvi s, unila teral , 2 or 3 view [email or web address] ?Encry pted=s Javed YD8dLq bEUv6g %2BXZw aYqtaq 0bqfl% 2Fg9IQ a4ajBk vP9nXo QUaueC m3YtLR FvZlgJ JJ8mAn HZtai3 6e1710 AC0Klb XqAWae mKiQtr MwF INTERFACE [facility] [address], [place], [address], 06/15/2025 08:28:15 Result Notes Documentation Provider Name and Address Organization Details Recorded Time Mri, Lower Extremity Joint(s), W/o Contrast : [facility] Accession Number: [id number] Patient Name: Poonam Vieira Date of : 1975 Date of Exam: 12-14-2024 Referring Physician: Ian Oakley [address] [place] [address] Exam: MR Hip Unilat (C-) CPT [address] - Right Room Description: [facility] 3.0T CLINICAL HISTORY: Right hip pain. Concern for gluteal tendon tear. TECHNIQUE: MR of the right hip was performed without intravenous contrast. COMPARISON: None. FINDINGS: Large ifmvs-xx-fspq pelvis: Overall bone marrow signal is mildly heterogeneous with evidence of red marrow reconversion. No evidence of marrow infiltration. Sacroiliac joints appear intact. The pubic symphysis appears intact. The left hip is unremarkable for technique. Arcuate enlarged uterus which appears heterogeneous, and may reflect adenomyosis. Right hip: Bone: There is no evidence of osteonecrosis or fracture. Acetabular labrum: Right anterior superior cleavage tear series 8 image 23 series 4 image 10. Articular cartilage: The articular cartilage is of normal thickness. No focal defects are seen. Muscle and tendons: The iliopsoas, rectus femoris and common hamstring tendons appear intact. The gluteus medius and minimus tendons appear intact. The ischiofemoral space is within normal limits. No inguinal lymphadenopathy. No joint effusion. IMPRESSION: 1. Right anterior superior cleavage tear of the labrum. 2. Normal fetus medius and minimus tendons. 3. Articular uterus which appears heterogeneous and may reflect underlying adenomyosis. Electronically Signed By: Grayson Oakley PA-C [address] [facility] [address], [place], [address], [facility] - [facility] 12/17/2024 14:01:55 Xr, Hip + Pelvis, Unilateral, 2 Or 3 View : [email or web address] Encrypted=[id number] [id number] [id number] [id number] 1DT6PvsBqJFbplOnFhlMoF Not Available [facility] 06/15/2025 08:28:13 Xr, Hip + Pelvis, Unilateral, 2 Or 3 View : [email or web address] Encrypted=vyWxVuzVA6rVgyP Uv6g%7VHWzoZxwwq3qsra%2Fg [id number] [id number] 8DQ7IjjNiYAvnuDnBhaIkY Not Available [facility] 06/15/2025 08:28:15 Problems Name Problem SNOMED Code Status Onset Date Resolution Date Notes Provider Name and Address Organization Details Recorded Time No complaints 921724742 Active Status : 'I'; Not Available [facility] 4 09:13:12 Carpal tunnel syndrome 50831465 Active 2020 Status : 'A'; Not Available [facility] 4 10:57:19 Pain of hip region 71706022 Active 2023 KAYLCARMELINA L'HEUREUX jackie [place] - [facility] 4 10:44:43 Osteoarthr itis of right hip joint 3842737331579 07 Active 2024 dale mejia [place] - [facility] 5 08:46:50 Problem Notes None recorded. Procedures Surgical History Date Name Laterality Status Provider Name and Address Organization Details Recorded Time 5 JZHip US completed Jeri [facility] 02/02/2025 13:23:50 5 Trigger Finger Kenalog Injection completed Stacie Lindquist MD [address], [place], [address], [facility] 11/10/2024 14:31:02 5 JZHip Inj completed Ian Oakley PA-C [address], [place], [address], [facility] 11/06/2024 08:02:12 Imaging Results None recorded. Procedure Notes None recorded. Medical Equipment None Reported. Allergies Allergen ID Allergen Name Allergen Category Reaction Reaction Severity Criticality Documentation Date Start Date Code Code System Note Provider Name and Address Organization Details Recorded Time 208813 Cipro medicatio n Not available Not available Not available 11/05/2023201756 3 RxNorm Not Available [facility] 4 15:26:50 216149 Product containin g penicilli n (product) medicatio n Not available Not available Not available 11/05/20232017 64933 8001 SNOMED Not Available [facility] 4 15:26:50 Medications Name Sig Start Date Stop Date Status Note LastModified by Organization Details LastModified Time celecoxib 200 mg capsule TAKE 1 CAPSULE BY MOUTH EVERY DAY 06/15 completed Not Available Not Available Not Available medroxyprog esterone 10 mg tablet TAKE 2 TABLETS BY MOUTH DAILY active Not Available Not Available No t Available Miralax 17 gram/dose oral powder Take by oral route. active Not Available Not Available No t Available nitrofurant oin macrocrysta l 50 mg capsule TAKE 1 CAPSULE BY MOUTH AT BEDTIME active Not Available Not Available No t Available gabapentin 600 mg tablet Take 1 tablet 3 times a day by oral route. active Not Available Not Available No t Available nitroglycer in 0.[address] by sublingua l route. active Not Available Not Available No t Available meloxicam 15 mg tablet TAKE 1 TABLET BY MOUTH EVERY DAY active Not Available Not Available No t Available bacitracin 500 unit/gram topical ointment APPLY TOPICALLY TO AFFECTED AREA THREE TIMES DAILY FOR 7 DAYS active Not Available Not Available No t Available amlodipine 2.5 mg tablet TAKE 1 TABLET BY MOUTH EVERY DAY IN THE MORNING active Not Available Not Available No t Available potassium chloride ER 10 mEq tablet,exte nded release TAKE 1 TABLET BY MOUTH EVERY OTHER DAY active Not Available Not Available No t Available sulfamethox azole 800 mg-trimetho prim 160 mg tablet TAKE 1 TABLET BY MOUTH EVERY 12 HOURS FOR 5 DAYS active Not Available Not Available No t Available peg-electro lyte solution 420 gram oral solution TAKE 8 OUNCES BY MOUTH DIRECTED active Not Available Not Available No t Available aspirin 81 mg tablet,geneva yed release active Not Available Not Available Not Available amitriptyli ne 50 mg tablet Take 1 tablet every day by oral route. active Not Available Not Available No t Available spironolact one 25 mg tablet TAKE 1 TABLET BY MOUTH DAILY active Not Available Not Available No t Available baclofen 10 mg tablet TAKE 2 TABLETS BY MOUTH THREE TIMES DAILY active Not Available Not Available No t Available cephalexin 500 mg capsule TAKE 1 CAPSULE BY MOUTH FOUR TIMES DAILY FOR 7 DAYS active Not Available Not Available No t Available metformin 1,000 mg tablet TAKE 1 TABLET BY MOUTH TWICE DAILY active Not Available Not Available No t Available nitrofurant oin macrocrysta l 100 mg capsule TAKE 1 CAPSULE BY MOUTH DAILY FOR PROPHYLAX IS active Not Available Not Available No t Available losartan 25 mg tablet TAKE 1 TABLET BY MOUTH EVERY DAY active Not Available Not Available No t Available metoprolol tartrate 50 mg tablet TAKE 1 TABLET BY MOUTH TWICE DAILY active Not Available Not Available No t Available mupirocin 2 % topical ointment APPLY SMALL AMOUNT TOPICALLY TO THE AFFECTED AREA THREE TIMES DAILY active Not Available Not Available No t Available ergocalcife rol (vitamin D2) 1,250 mcg (50,000 unit) capsule TAKE 1 CAPSULE BY MOUTH 1 TIME EVERY WEEK active Not Available Not Available No t Available ibuprofen 600 mg tablet TAKE 1 TABLET BY MOUTH EVERY 6 HOURS NEEDED FOR MENSTRUAL PAIN active Not Available Not Available No t Available ondansetron 4 mg disintegrat ing tablet DISSOLVE 1 TABLET ON THE TONGUE EVERY 8 HOURS FOR 3 DAYS NEEDED active Not Available Not Available No t Available docusate sodium 100 mg tablet Take 1 tablet every day by oral route. active Not Available Not Available No t Available Low Dose Aspirin 81 mg tablet,geneva yed release Take 1 tablet every day by oral route. active Not Available Not Available No t Available insulin lispro (U-100) 100 unit/mL subcutaneou s pen active Not Available Not Available Not Available ezetimibe 10 mg tablet TAKE 1 TABLET BY MOUTH DAILY active Not Available Not Available No t Available rosuvastati n 10 mg tablet Take 1 tablet every day by oral route. active Not Available Not Available No t Available rosuvastati n 40 mg tablet TAKE 1 TABLET BY MOUTH DAILY active Not Available Not Available No t Available metoprolol tartrate 25 mg tablet TAKE 1 TABLET BY MOUTH TWICE DAILY active Not Available Not Available No t Available coenzyme Q10 200 mg capsule TAKE 1 CAPSULE BY MOUTH DAILY active Not Available Not Available No t Available iron active Not Available Not Availa ble Not Available ondansetron active Not Available Not A vailable Not Available FeroSul 325 mg (65 mg iron) tablet TAKE 1 TABLET BY MOUTH EVERY DAY active Not Available Not Available No t Available Lantus Solostar U-100 Insulin 100 unit/mL (3 mL) subcutaneou s pen ADMINISTE R 60 UNITS UNDER THE SKIN EVERY NIGHT AT BEDTIME active Not Available Not Available No t Available Lantus Solostar U-100 Insulin 06/15 completed Not Available Not Available Not Available Vitamin D3 50 mcg (2,000 unit) tablet TAKE 1 TABLET BY MOUTH ONCE DAILY active Not Available Not Available No t Available oxycodone HCl-oxycodo ne-ASA PRN PAIN DO NOT DRIVE WHILE TAKING THIS MEDICATIO N 07/24 completed Statu s: 'Curr ent'; Not Available Not Available Not Available dalfampridi ne ER 10 mg tablet,exte nded release,12 hr Take 1 tablet every 12 hours by oral route. active Not Available Not Available No t Available Brilinta Brilinta 90MG Tablet 07/24 completed Statu s: 'Curr ent'; Not Available Not Available Not Available OneTouch Verio test strips USE 1 STRIP DIRECTED ONCE DAILY active Not Available Not Available No t Available nitrofurant oin 100 mg tablet Take by oral route. active Not Available Not Available No t Available Stimulant Laxative Plus 8.6 mg-50 mg tablet TAKE 1 TABLET BY MOUTH TWICE DAILY NEEDED FOR CONSTIPAT ION active Not Available Not Available No t Available ubiquinone 75 mg capsule Take by oral route. active Not Available Not Available No t Available Jardiance 10 mg tablet Take 1 tablet every day by oral route. active Not Available Not Available No t Available cholecalcif franco (vit D3) 1,000 unit-vitami n K2 (MK4) 100 mcg tablet Take by oral route. active Not Available Not Available No t Available ocrelizumab 30 mg/mL intravenous solution Inject by intraveno us route. active Not Available Not Available No t Available metoprolol succinate ER 50 mg capsule sprinkle, ext. release 24 hr Take 1 capsule every day by oral route. active Not Available Not Available No t Available OneTouch Delica Plus Lancet 33 gauge USE 1 LANCET DIRECTED ONCE A DAY active Not Available Not Available No t Available Ozempic 1 mg/dose (4 mg/3 mL) subcutaneou s pen injector IMJECT 1 MG UNDER THE SKIN ONCE A WEEK 06/15 completed Not Available Not Available Not Available BinaxNOW COVID-19 Ag Self Test kit TEST DIRECTED TODAY active Not Available Not Available No t Available Ozempic 2 mg/dose (8 mg/3 mL) subcutaneou s pen injector INJECT 2 MG UNDER THE SKIN ONCE A WEEK active Not Available Not Available No t Available Ozempic 0.25 mg or 0.5 mg (2 mg/3 mL) subcutaneou s pen injector 06/15 completed Not Available Not Available Not Available potassium chloride 10 mEq oral packet Take 1 packet twice a day by oral route. active Not Available Not Available No t Available Vitals Date Recorded Body height Body mass index (BMI) Body weight Provider Name and Address Organization Details Last Updated DateTime 11/06/2024 154.94 cm 36.5 kg/m2 56001.33 g NICOLLE PEOPLES [facility] 11/06/2024 15:55:11 Date Recorded Body height Body mass index (BMI) Body weight Provider Name and Address Organization Details Last Updated DateTime 11/10/2024 154.94 cm 36.5 kg/m2 14495.33 g Kathya Jensen [facility] 11/10/2024 14:18:21 Date Recorded Body height Body mass index (BMI) Body weight Provider Name and Address Organization Details Last Updated DateTime 02/02/2025 154.94 cm 36.8 kg/m2 05821.51 g Jeri Carr [facility] 02/02/2025 13:27:40 Date Recorded Body height Body mass index (BMI) Body weight Provider Name and Address Organization Details Last Updated DateTime 06/15/2025 154.94 cm 36.3 kg/m2 80410.74 g CLEMENTE RAYGOZA [facility] 06/15/2025 08:18:47 Social History Question Answer Notes LastModified by [employer] Details LastModified Time Tobacco Smoking Status Never Smoker [facility] 07/24/2024 10:43:24 What Is Your Relationship Status? Single Information not available 07/24/2024 Sex: Unknown Functional Status Question Answer Note LastModified by [employer] Details LastModified Time Do you use any illicit or recreational drugs? No Information not available 07/24/2024 Do you or have you ever used any other forms of tobacco or nicotine? No Information not available 07/24/2024 What is your level of alcohol consumption? None Information not available 07/24/2024 Mental Status None recorded. Family History Nothing Reported. Medical History Condition Response Allergies/Hayfever N Coronary Artery Disease N Breathing or lung disorders N Anxiety/Depression N Emphysema N Nerve Disorders Y Thyroid Problems N COPD N Pacemaker N Anemia N Kidney/Bladder Problems N Vascular Disease N Heart Trouble Y Heart Attack ([place]) N Gastrointestinal Disease N Cholesterol Y Diabetes Y Autoimmune disease N Inflammatory Joint disease N Bleeding Disorder N Orthotics N Arthritis Y Seizures/Epilepsy N Blood Clot N AIDS/HIV N Congestive Heart Failure (CHF) N Acid Reflux (GERD) N Cancer N Stroke N Asthma N Circulation Problems N Peripheral Vascular Disease N Sleep Apnea N Hepatitis N Heart Disease N Rheumatoid Arthritis N Arrhythmia N Pulmonary Embolism N Headaches N Fibromyalgia N Hypertension Y Osteoporosis N Gynecological HistoryNo gynecological history recorded. Obstetrics History GPAL:G 0 P 0 0 0 0 Past Encounters Encounter ID Performer Location Encounter Start Date Encounter Closed Date Diagnosis/Indication Diagnosis SNOMED-CT Code Diagnosis ICD10 Code Diagnosis IMO Codes Diagnosis Note [id number] Ian [place], PA-C [facility] [address] [place] [address] 07/24/2024 10:22:36 08/22/2024 21:35:58 Pain of hip region 16849306 M25.551 [id number] [facility] bursitis of right hip 4528566473 91809 M70.61 5171610 Pain of sa croiliac joint 806734855 M53.3 [id number] Ian Oakley PA-C [facility] [address] [place] [address] 08/07/2024 11:08:25 09/05/2024 13:27:28 Pain of hip region 34874674 M25.551 727513 Trochanter ic bursitis of right hip 8329715550 64897 M70.61 [id number] OLAYINKA Core[facility] - [facility] [address] [place] [address] 11/06/2024 15:47:11 11/20/2024 14:01:22 Trochanteric bursitis of right hip 5071326521 89878 M70.61 [id number] MD FREDY [facility] [place] [address] 11/10/2024 14:12:45 11/25/2024 15:53:18 Triggering of digit 020262054 M65.954 [id number] OLAYINKA [facility] - [place] [address] [place] [address] 01/01/2025 13:36:54 01/12/2025 13:56:31 Acetabular labrum tear 698757552 S73.191D 84072057 Pain of hip region 76349 002 M25.551 638767 [id number] OLAYINKA Core[facility] - [place] [address] [place] [place] [address] 02/02/2025 13:20:16 02/05/2025 09:42:46 Osteoarthritis of right hip joint 2983246345 37149 M16.11 [id number] MD FREDY Knight [address] [place] [address] 06/15/2025 08:10:50 06/25/2025 08:36:48 Pain of hip region 89876035 M25.551 [id number] Osteoarthr itis of right hip joint 6082089182 82944 M16.11 [id number] Health Concerns Section Related Observation LastModified by Organization Detai ls LastModified Time None Recorded Concern Status LastModified by Organization Details LastModified Time None Recorded Advance Directives Directive None Recorded Payers Insurance Date Sequence Insurance Name Policy Number Policy Hawkins Covered Member ID Hawkins Member ID Guarantor Name 06/25/2025 1 [facility] - DOS ON OR AFTER 2022 - MEDICARE [place]VANTAGE [place]MED[place] REPLACEMENT/ADV ANTAGE - PPO) Poonam Vieira [id number] Poonam Vieira Notes Date Note Type Note Provider Name and Address Organization Details Recorded Time 11/10/2024 text/html ROS as noted in the HPI Patient is a 48-year-old female last seen by me in July 2023 at which time she was treated for epicondylitis. Here today for right hand fourth digit pain, 1 month. She has no prior history of trigger fingers but has noted locking of the ring finger happening consistently. Stacie Lindquist MD [address], [place], [address], [facility] - [facility] 11/10/2024 14:36:27 OBGyn Episode No OBEpisode recorded.
== END 2025-06-26 13:13 | disposition home or self-care (01) ==
LOC: HO.HMGCLDS 13:12
PROVIDERS: PCP Internal Medicine; Visit Provider Nurse Practitioner Family
DX: N31.9 Neuromuscular dysfunction of bladder, unspecified (principal); N39.0 Urinary tract infection, site not specified
CPT/HCPCS: 88112